=== PATIENT | female | born 1975 | race Caucasian/White ===

== ENCOUNTER → 2021-06-26 09:57 | Outpatient (CLI) | payer BC, SELFPAY ==
--- NOTE | ~2021-06-26 | XR_ITS ---
EXAMINATION: XR knee RT min 4V DATE: 06/26/2021 10:18 INDICATION: Osteoarthritis of knee. TECHNIQUE: 4 views of right knee including standing views were obtained. COMPARISON: None. FINDINGS: There is varus angulation at the knee. No fracture. Patella is bipartite. There is severe o steoarthritis of medial compartment and mild osteoarthritis of lateral and patellofemoral compartment s. There is a small knee joint effusion. IMPRESSION: 1. Severe right knee osteoarthritis. 2. Small right knee joint effusion. Reviewed, dictated and finalized at location A. TECHNICIAN
== END ==
DX: M17.11 Unilateral primary osteoarthritis, right knee (principal); M25.461 Effusion, right knee
CPT/HCPCS: 73564

== ENCOUNTER 2024-11-26 17:35 | Emergency (ER) | payer OTHER, SELFPAY ==
--- NOTE | ~2024-11-26 | US_ITS ---
EXAM: PELVIC ULTRASOUND HISTORY: RLQ abd pain, r/o ovarian torsion COMPARISON: None. FINDINGS: UTERUS: Surgically absent RIGHT OVARY: Despite prolonged interrogation, the right ovary was not visualized LEFT OVARY: Despite prolonged interrogation, the left ovary was not visualized No free fluid is identified within the pelvis. Limited evaluation of the pelvis demonstrates complex fluid within the bladder, with layering debris for which cystitis is suspected. IMPRESSION: As above. Reviewed, dictated and finalized at location A. IMPRESSION: As above.
--- NOTE | ~2024-11-26 | CT_ITS ---
CLINICAL INDICATION: Right lower quadrant pain COMPARISON: None. TECHNIQUE: Multiple contiguous axial images of the abdomen and pelvis were performed following the ad ministration of with 100 mL Omnipaque-350 intravenous contrast The dose-length product (DLP) was 1424.31 mGy-cm. Automated exposure control and iterative reconstruction technique were employed. FINDINGS/OBSERVATIONS: Visualized lower thorax: Trace medial right basilar atelectasis, adjacent to a vertebral body osteophyte. The remainder of the lungs are otherwise clear. The heart is borderline enlarged, without pericardial effusion. Small hiatal hernia is present. Liver: The liver demonstrates homogeneously decreased .enhancement and is enlarged measuring 21 cm in longit udinal dimension. Gallbladder and biliary system: The gallbladder is only minimally distended, and otherwise unremarkable. Pancreas: The pancreas enhances homogeneously without ductal dilatation. Spleen: The spleen enhances homogeneously and is not enlarged measuring 8 cm in longitudinal dimension. Kidneys: The bilateral kidneys enhance symmetrically without hydronephrosis or renal calculi. Adrenal glands: Unremarkable. Gastrointestinal tract: Colonic diverticulosis without surrounding inflammatory change. Appendix: The air-filled appendix is of normal caliber (axial series, images 123 through 136) Vasculature: Unremarkable. Lymph nodes: No pathologically enlarged or morphologically suspicious lymph nodes within the retroperitoneum or at the root of the mesentery. Pelvic structures: The bladder is only minimally distended, and demonstrates markedly thickened arredondo with surrounding i nflammatory change for which cystitis is suspected. The uterus is surgically absent. The bilateral ovaries are atrophic. Body wall and musculoskeletal: Fat-containing complex umbilical and supraumbilical hernia. Fat-containing bilateral inguinal hernias are also present. Age advanced degenerative disease within the lower thoracic and lumbosacral spines. IMPRESSION: No acute intra-abdominal pathology. Normal appendix. Fatty infiltration of an enlarged liver. Findings within the bladder suggesting cystitis. Reviewed, dictated and finalized at location A.
--- OUTSIDE RECORDS SUMMARY | 2024-11-26 17:37 | XMS_ITS | Clinical Summary ---
Author Organization [facility] Address [address] [place] [address] Care Team Providers Care Hydrographic Engineer Name Role Phone Ana Cristina Hopkins DO Primary Care Provider [phone] Source Comments [facility],non-owned Affiliates and Associated Physician Practices is amultiple site organization consisting of ambulatory clinics and hospital sitesin [place], [place], [place] and [place]. This disclosure is being madepursuant to the Care Everywhere program and may not contain all information available regarding this patient. Last updated 18.[facility] Allergies Active Allergy Reactions Criticality Noted Date Comments Gluten Meal GI Discomfort 07/15/2020 Latex Rash Medium 07/15/2020 Morphine Other 07/15/2020 Medications * Be aware that medications may not be up to date on this document. Alwaysverify current medications with the patient. albuterol (Accuneb) 0.63 MG/3ML nebulizer solution TAKE 6 MLS (1.26 MG TOTAL) BY WAY OF NEBULIZER 3 TIMES DAILY NEEDED FOR WHEEZING 2 Active ALPRAZolam (Xanax) 0.25 MG tablet Take 1 (one) tablet by mouth 2 times daily as needed 2 Active ARIPiprazole (Abilify) 5 MG tablet Take 1 (one) tablet by mouth at bedtime 2 Active atenolol (Tenormin) 25 MG tablet Take 1 (one) tablet by mouth 2 times daily 3 Active Atogepant (Qulipta) 10 MG TABS TAKE 1 TABLET BY MOUTH DAILY FOR THE PREVENTION OF MIGRAINE 2 Active cyclobenzaprine (Flexeril) 5 MG tablet TAKE 1 TO 2 TABLETS BY MOUTH NIGHTLY 3 Active diclofenac sodium EC (Voltaren) 75 MG tablet Take 1 (one) tablet by mouth 2 times daily 3 Active vitamin D, ergocalciferol, (Drisdol) 1.25 MG (54165 UT) capsule Take 1 (one) capsule by mouth Sundays and 3 Active ibuprofen (Motrin) 800 MG tablet TAKE 1 TABLET BY MOUTH 2 TIMES DAILY NEEDED FOR PAIN. 2 Active loratadine (Claritin) 10 MG tablet Take 1 (one) tablet by mouth once daily 3 Active montelukast (Singulair) 10 MG tablet Take 1 (one) tablet by mouth 2 Active sertraline (Zoloft) 100 MG tablet Take 1 (one) tablet by mouth once daily 3 Active traMADol (Ultram) 50 MG tablet TAKE 1-2 TAB WITH OTC TYLENOL BY MOUTH THREE TIMES DAILY FOR PAIN CONTROL 3 Active Colwell-3 Fatty Acids (fish oil) 1000 MG capsule Active Multiple Vitamin (MULTI-VITAMIN DAILY PO) Active VALERIAN ROOT PO Active guaiFENesin ER 12hr (Mucinex) 600 MG tablet Take 1 (one) tablet by mouth every 12 hours Active HYDROcodone-jackie taminophen (Garrison) 5-325 MG tabletIndicatio ns:Venosclerosi s Take 1 (one) tablet by mouth every 6 hours as needed for Pain 12 tablet 3 Active Active Problems Problem Noted Date Diagnosed Date Venosclerosis 07/19/2022 Family History Medical History Relation Name Comments Other Other unknown; adopte d Relation Name Status Comments Other Social History Tobacco Use Types Packs/Day Years Used Date Smoking Tobacco: Former Cigarettes Smokeless Tobacco: Never Tobacco Cessation:Counseling Given: Not Answered Alcohol Use Standard Drinks/Week Comments Not Currently 0 (1 standard drink = 0.6 oz pur e alcohol) Comments No Sex and Gender Information Value Date Recorded Sex Assigned at Not on file Legal Sex Female 12:11 PM CDT Gender Identity Not on file Sexual Orientation Not on file Last Filed Vital Signs Vital Sign Reading Time Taken Comments Blood Pressure 158/83 08/10/2022 1:40 PM CDT Pulse 81 08/10/2022 1:40 PM CDT Temperature 36.2 C (97.2 F) 08/10/2022 1:14 PM CDT Respiratory Rate 16 08/10/2022 1:40 PM CDT Oxygen Saturation 94% 08/10/2022 1:40 PM CDT Inhaled Oxygen Concentration - - Weight 124.7 kg (275 lb) 08/10/2022 10:22 AM CDT Height 160 cm (5' 3) 08/10/2022 10:22 AM CDT Body Mass Index 48.71 08/10/2022 10:22 AM CDT Plan of Treatment Health Maintenance Due Date Last Done Comments COLOGUARD (AGES 45-75) - COL ON CA SCREENING 1976 COLON MONITORING 1976 COLONOSCOPY - COLON CA SCREENING 1976 CT COLONOGRAPHY - COLON CA SCREENING 1976 Colorectal Cancer Screening 1976 FIT - COLON CA SCREENING 1976 FLEX SIG - COLON CA SCREENING 1976 LIPID TESTING 1976 MAMMOGRAM 1976 HIV SCREENING 1991 HEPATITIS C SCREENING 06/02/1994 DTAP/TDAP/TD VACCINES (1 - Tdap) 1995 HEPATITIS B VACCINE (1 of 3 - 19+ 3-dose series) 1995 PAP SMEAR 1997 SCREENING FOR DIABETES 07/19/2022 COVID-19 VACCINE (3 - 2023-2 5 season) 2024 08/08/2020, 07/26/2020 DEPRESSION SCREENING 05/27/2024 INFLUENZA VACCINE (Season Ended) 2025 02/20/2021 ZOSTER VACCINE (1 of 2) 2026 HIB VACCINE Aged Out No longer eligi ble based on patient's age to complete this topic HPV VACCINE Aged Out No longer eligi ble based on patient's age to complete this topic MENINGOCOCCAL (Group B) VACCINE SHARED DECISION-MAKING Aged Out No longer eligible based on patient's age to complete this topic MENINGOCOCCAL GROUPS A/C/Y/W VACCINE Aged Out No longer eligible b ased on patient's age to complete this topic PNEUMOCOCCAL VACCINE Aged Out No long er eligible based on patient's age to complete this topic Medical Devices Implanted Type Area Inspector Packer Device Identifier Shelf Expiration Date Model / Serial / Lot Port Implinfn Powerport Isp Mri Argd Implanted:Qty: 1 on 08/10/2022 by Scooby Hinton MD at [facility] Right: Chest [employer] 10/25/2023 [id number] / / [id number] Insurance [facility] Care Teams Hydrographic Engineer Relationship Specialty Start Date End Date Ana Cristina Hopkins DO [address] [place] [id number] PCP - General Family Medicine 08/07/22
--- OUTSIDE RECORDS SUMMARY | 2024-11-26 17:37 | XMS_ITS | Patient Health Record ---
Author Organization [facility] Address [address] [address] Care Team Providers Care Visual Artist Name Role Phone Prerna Sotelo Unavailable [phone] Migration, Provider Unavailable Unavailable Allergies Allergen (clinical drug ingredient) Drug/Non Drug Allergy documented on EMR Reaction Allergy Type Onset Date Status morphine Morphine Unknown Drug Allergy Active Latex Latex Unknown Allergy Active Results Component Value Reference Range Notes DEXAMETHASONE Reviewed date:05/25/2024 08:44:11 PM Interpretation: Performing Lab:[facility],, [address] [place], [address] Shauna Burkett MD,PhD,DEVANTE Notes/Report: AN UPDATE OR CORRECTION HAS BEEN MADE TO NAME DEXAMETHASONE 91 Reference Ranges for Dexamethasone: Baseline: Less than 20 ng/dL 1 mg dexamethasone overnight: 180-550 ng/dL (8:00-10:00 AM) This test was developed and its analytical performance characteristics have been determined by [employer]. It has not been cleared or approved by FDA. This assay has been validated pursuant to the CLIA regulations and is used for clinical purposes. CORTISOL, TOTAL Reviewed date:05/24/2024 11:53:46 AM Interpretation: Performing Lab:[facility], [address] [place], [address] Jim Shen MD Notes/Report: AN UPDATE OR CORRECTION HAS BEEN MADE TO NAME Reason For Referral No Information Medications Medication SIG (Take, Route, Frequency, Duration) Notes Start Date End Date Status Celecoxib 200 MG 1 cap(s) orally once a day Active sulfaSALAzine 500 MG 2 tab(s) orally 2 times a day 1500 MG X2 DAILY Active Vitamin D (Ergocalciferol) 1.25 MG (74416 UT) 1 cap(s) orally once a week 1.25 MG X2 DAILY Active Zoloft 100 MG 1 tab(s) orally once a day Active Tirzepatide 2.5 MG/0.5ML as directed Subcutaneous Active Loratadine 10 MG 1 tab(s) orally once a day Active Unithroid 50 MCG (0.05 MG) 1 TAB(S) ORALLY ONCE A DAY for 90 DAYS *Please review and pick correct strength-formulati on from [facility] options. If intended option is not shown, discontinue and re-order from Quick Search* 04/09/2024 Active dexAMETHasone 1 MG 1 tablet Orally at 10 pm night before 8 am cortisol for 1 days 06/29/2024 Active Ondansetron HCl 4 MG 1 tablet Orally twice daily as needed for 30 days 05/28/2024 Active dexAMETHasone 4 MG 1 tablet Orally at 10 pm night before 8 am coritisol for 1 days 06/29/2024 Active Progesterone ONCE DAILY *Plea review and pick correct strength-formulati on from [facility] options. If intended option is not shown, discontinue and re-order from Quick Search* 04/09/2024 Active Problems Problem Type SNOMED Code ICD Code Onset Dates Problem Status W/U Status Risk Notes Problem Vitamin D deficiency (82065080) Vitamin D deficiency, unspecified (E55.9) Active confirmed Problem Hypothyroidism (11113134) Hypothyroidism, unspecified (E03.9) Active confirmed Problem Obstructive sleep apnea syndrome (disorder) (49521188) Obstructive sleep apnea (adult) (pediatric) (G47.33) Active confirmed Problem Obesity (127855954) Obesity, unspecified (E66.9) Active confirmed Problem Polyarthritis (616907692) Polyarthritis, unspecified (M13.0) Active confirmed Problem Irregular menstruation (91956402) Irregular menstruation, unspecified (N92.6) Active confirmed Vital Signs Heart Rate 92 /min 06/29/2024 Blood pressure diastolic 76 mm Hg 06/29/2024 Height 63 in 06/29/2024 Blood pressure systolic 117 mm Hg 06/29/2024 Weight 269.0 lbs 06/29/2024 BMI 47.65 kg/m2 06/29/2024 Encounters Encounter Location Date Provider Diagnosis [facility] [address] [place] [address] 05/28/2024 Prerna Deepak Obesity, unspecified E66.9 ; Dietary counseling and surveillance Z71.3 ; Other fatigue R53.83 ; Encounter for screening for lipoid disorders Z13.220 and Polyarthritis, unspecified M13.0 [facility] [address] [place] [address] 06/29/2024 Prerna Sotelo Obesity, unspecified E66.9 ; Hypothyroidism, unspecified E03.9 ; Obstructive sleep apnea (adult) (pediatric) G47.33 and Dietary counseling and surveillance Z71.3 [facility] [address] [place] [address] 07/27/[address] [facility] [facility] [address] [place] [address] 04/11/2024 Provider Migration Hypothyroidism, unspecified E03.9 and Obesity, unspecified E66.9 [facility] [address] [place] [address] 04/09/2024 Prerna Sotelo Obesity, unspecified E66.9 ; Hypothyroidism, unspecified E03.9 ; Other fatigue R53.83 ; Vitamin D deficiency, unspecified E55.9 and Irregular menstruation, unspecified N92.6 Assessments Encounter Date Diagnosis (ICD Code) Assessment Notes Treatment Notes Treatment Clinical Notes Section Notes 05/28/2024 Obesity, unspecified (ICD-10 - E66.9) 05/28/2024 Dietary counseling and surveillance (ICD-10 - Z71.3) 06/29/2024 Hypothyroidism, unspecified (ICD-10 - E03.9) 06/29/2024 Obesity, unspecified (ICD-10 - E66.9) 04/11/2024 Hypothyroidism, unspecified (ICD-10 - E03.9) 04/11/2024 Obesity, unspecified (ICD-10 - E66.9) 04/09/2024 Hypothyroidism, unspecified (ICD-10 - E03.9) 04/09/2024 Obesity, unspecified (ICD-10 - E66.9) 05/28/2024 Other fatigue (ICD-10 - R53.83) 06/29/2024 Obstructive sleep apnea (adult) (pediatric) (ICD-10 - G47.33) 04/09/2024 Other fatigue (ICD-10 - R53.83) 05/28/2024 Encounter for screening for lipoid disorders (ICD-10 - Z13.220) 04/09/2024 Vitamin D deficiency, unspecified (ICD-10 - E55.9) 05/28/2024 Polyarthritis, unspecified (ICD-10 - M13.0) 06/29/2024 Dietary counseling and surveillance (ICD-10 - Z71.3) 04/09/2024 Irregular menstruation, unspecified (ICD-10 - N92.6) 04/09/2024 Other Assessment and Plan: 1. Type 2 Diabetes Mellitus- Patient is currently taking Tirzepatide from [facility].- A1C: 4.4- Plan: Caution patient about the risk of low sugars. Continue monitoring blood glucose levels and A1C. Reevaluate the need for Tirzepatide in 4 weeks. 2. Dyslipidemia- High triglycerides- Plan: Encourage patient to maintain a healthy diet and exercise regimen. Recheck lipid panel in 4 weeks. 3. Hypothyroidism- TSH: Elevated- Plan: Start patient on 50 mcg of levothyroxine, taken once a day in the morning with water. Instruct patient to wait an hour before having coffee, tea, milk, fish oil, or multivitamins. Recheck TSH in 4 weeks. 4. Hormone Replacement Therapy- Patient is using a hormone lotion for three days.- Plan: Discontinue hormone lotion for 4-6 weeks to obtain accurate cortisol and ACTH levels. Recheck hormone levels in 4 weeks. 5. Sleep disturbances and fatigue- Plan: Monitor the effect of levothyroxine on sleep and energy levels. Reevaluate in 6 weeks. 6. Cortisol evaluation- Plan: Postpone cortisol testing until the patient has discontinued hormone therapy for 4-6 weeks. Recheck cortisol and ACTH levels in 4 weeks. 7. Follow-up- Plan: Schedule a follow-up appointment in 6 weeks to discuss lab results and reevaluate treatment plans. Spent 25 minutes preparing to see the patient (ex review of tests/chart), obtaining and / or reviewing separately obtained history, performing a medically appropriate examination and/or evaluation, counseling and educating the patient/family/careg iver, ordering medications, tests, or procedures, referring and communicating with other health student career development specialist, documenting clinical information in the electronic or other health record, independently interpreting results and communicating results to the patient/family/careg iver and care coordinating patient plan. Patient alert and oriented x 4 and aware of discussion noted above and in agreeance to plan in management of 05/28/2024 Other Assessment and Plan: 1. Inadequate response to dexamethasone suppression test - Increase dexamethasone dose to 4 mg for repeat test - Include urine and salivary cortisol tests 2. Insomnia - Continue trazodone 5 mg as needed for sleep - Assess sleep quality after repeat dexamethasone suppression test 3. Weight loss - Encourage continuation of healthy lifestyle habits - Monitor weight changes during follow-up visits 4. Treated rheumatoid arthritis - Continue current rheumatoid arthritis management with specialist - Order WILLIAM test to screen for lupus 5. Gluten-free diet - Encourage continuation of gluten-free diet 6. Nausea and vomiting due to tirzepatide - Prescribe ondansetron 4 mg up to twice daily as needed for nausea - Provide 30 tablets with refills as needed - Advise patient to stay hydrated to prevent constipation 7. Laboratory tests - Order adrenal pituitary panel, glucose, lipids, full thyroid function, and 4 mg DEXA suppression test - Check cholesterol and insulin levels 8. Medication refills - Confirm patient has enough tirzepatide for a month - No additional refills needed at this time Follow-up: - Schedule follow-up appointment to review test results and assess treatment progress Spent 15 minutes preventative counseling patient on dietary recommendations and changes in setting of hyperglycemia- need to restrict refined sugars and processed foods and incorporate up to 150 minutes of moderate level activity weekly. Spent 25 minutes preparing to see the patient (ex review of tests/chart), obtaining and / or reviewing separately obtained history, performing a medically appropriate examination and/or evaluation, counseling and educating the patient/family/careg iver, ordering medications, tests, or procedures, referring and communicating with other health student career development specialist, documenting clinical information in the electronic or other health record, independently interpreting results and communicating results to the patient/family/careg iver and care coordinating patient plan. Patient alert and oriented x 4 and aware of discussion noted above and in agreeance to plan in management of obesity/weight management, fatigue and concern for hypercortisolism/ins ulin resistance. 06/29/2024 Other Assessment and Plan: ObesityPatient has experienced a weight loss of 6 pounds over the past month while on tirzepatide (Zepbound), indicating a positive response.Due to cost considerations, the patient is interested in switching to a compounded version of the medication.Continue tirzepatide therapy and switch to the compounded version at $290/month. Given 4 prefilled 2.5 mg tirzepatide syringes - lot number [id number] a signed consent form from the patient acknowledging potential side effects such as nausea and vomiting.Schedule a follow-up appointment in 4 weeks to monitor progress and adjust treatment as necessary. Suspected Tracy's SyndromePrevious testing indicated a cortisol level of 7 with an insufficient dexamethasone level.Plan to perform a 4mg dexamethasone suppression test to further evaluate for [place]'s syndrome. InsomniaThe patient reports difficulty maintaining sleep and experiences daytime fatigue.Considering the patient's weight gain and occasional snoring, sleep apnea is suspected as a contributing factor.Order a new sleep study to assess for sleep apnea and its impact on sleep quality and endocrine function.Note: The patient has been prescribed Xanax by a psychiatrist for sleep but has yet to commence treatment. HypothyroidismThe patient is currently being treated with Unithroid 50 mcg for thyroid management.Continue with the current thyroid medication regimen (Unithroid 50 mcg). Hormone TherapyThe patient has ceased testosterone therapy but continues to use progesterone, noting improvements in sleep and mood.Continue progesterone therapy as long as the current supply permits. Follow-up:Schedule a follow-up appointment in 4 weeks to review progress and adjust treatment plans as needed.Encourage the patient to report any new or worsening symptoms promptly. Spent 15 minutes preventative counseling patient on dietary recommendations and changes in setting of hyperglycemia- need to restrict refined sugars and processed foods and incorporate up to 150 minutes of moderate level activity weekly. Spent 25 minutes preparing to see the patient (ex review of tests/chart), obtaining and / or reviewing separately obtained history, performing a medically appropriate examination and/or evaluation, counseling and educating the patient/family/careg iver, ordering medications, tests, or procedures, referring and communicating with other health student career development specialist, documenting clinical information in the electronic or other health record, independently interpreting results and communicating results to the patient/family/careg iver and care coordinating patient plan. Patient alert and oriented x 4 and aware of discussion noted above and in agreeance to plan in management of hypothyroidism, obesity/ weight management and concern for ARIN and hypercortisolism. 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
--- OUTSIDE RECORDS SUMMARY | 2024-11-26 17:37 | XMS_ITS | Encounter Summary ---
Author Organization [facility] Address [address] [place] [id number] Care Team Providers Care Baby Attendant Name Role Phone Ana Cristina Hopkins DO Primary Care Provider [phone] Encounter Details Date Type Department Care Team (Late st Contact Info) Description 11/26/2024 mth sense Message Enc [facility] Family [facility] - [place] [address], [address] [place] [phone] Ana Cristina Hopkins DO [address] [place], [place] [id number] Bladder infection Social History Tobacco Use Types Packs/Day Years Used Date Smoking Tobacco: Former Cigarettes Q uit: 05/27/1996 Smokeless Tobacco: Never Comments:former smoker Alcohol Use Standard Drinks/Week Comments Not Currently 0 (1 standard drink = 0.6 oz pur e alcohol) rare AUDIT-C Answer Date Recorded Q1: How often do you have a drink containing alc ohol? 2-4 times a month 08/03/2020 Average Number of Drinks Not on file 021 Frequency of Binge Drinking Not on file 07/25 PHQ-2 Answer Date Recorded Patient Health Questionnaire-2 Score 0 09/25/2024 Comments No Sex and Gender Information Value Date Recorded Sex Assigned at Not on file Legal Sex Female 2:44 PM SOURCING ASSISTANT Gender Identity Not on file Sexual Orientation Not on file documented as of this encounter Plan of Treatment Not on file documented as of this encounter Visit Diagnoses Not on filedocumented in this encounter Additional Health Concerns Assessment Noted Time PHQ-9 Depression Total Score: 4 09/26/19 25 11:16 AM CDT documented as of this encounter Care Teams Baby Attendant Relationship Specialty Start [place] [address] [place] [id number] PCP - General FAMILY PRACTICE 07/15/20 documented as of this encounter
--- OUTSIDE RECORDS SUMMARY | 2024-11-26 17:37 | XMS_ITS | Continuity of Care Document ---
Author Organization [facility] Address [address] [place] [address] Phone Care Team Providers Care Audio Visual Collections Coordinator Name Role Phone Ray Covarrubias MD Unavailable Unavailable Allergies, Adverse Reactions, Alerts Substance Reaction Status Criticality morphine Unknown Active No Information Medications Medication Instructions Dosage Effective Dates (start - stop) Status Comments sertraline 100 mg tablet take 1 tablet by oral route every day 100 MG - Active trazodone 50 mg tablet TAKE 1 TABLET BY ORAL ROUTE EVERY DAY AFTER MEALS 50 MG - Active atenolol 25 mg tablet take 1 tablet by o ral route every day 25 MG - Active nortriptyline 50 mg capsule take 1 capsule by oral route every day 50 MG - Active Celebrex 200 mg capsule take 1 capsule b y oral route every day as needed 200 MG - Active Lyrica 75 mg capsule take 1 capsule by oral route 2 times every day 75 MG - Active Shelby 7.5 mg-325 mg tablet take 1 tablet by oral route every 6 hours as needed for pain - Active Zofran 4 mg tablet take 1 tablet by ora l route every 6 hours as needed for nausea - Active omeprazole 40 mg capsule,delayed release TAKE 1 CAPSULE BY MOUTH DAILY - Active montelukast 10 mg tablet take 1 tablet by oral route every day in the morning 10 MG - Active Procedures Procedure Date Knee Xray 3 Views (AP Lateral, Tunnel) J Knee Xray 3 Views (AP Lateral, Tunnel) J OV Est Pt, Expanded Visit OV Est Pt, Detailed Visit OV Est Pt, Detailed Visit Post Op Visit Adult 40-64 Yrs ADMIN IMMUN / ONE VACCINE FLU VAC NO PRSV 4 ODESSA 3 YRS+ ADMIN IMMUN / EA ADD VACCINE TdaP > 7 Yrs (Adacel) Pnuemoccocal Vaccine > 2 Yrs Arthroscopy, Knee W/ Menis (Med Or Lat) OV Est Pt, Expanded Visit EXT ECG REVIEW AND INTERP EXT ECG RECORDING OV New Pt, Comprehensive ECG Depo Medrol 80 Mg Major Joint Inject: Shoulder, Hip, Knee OV Est Pt, Detailed Visit OV Est Pt, Expanded Visit OV Est Pt, Expanded Visit Elec stim other than wound HOT OR COLD PACKS THERAPY MANUAL THERAPY AQUATIC THERAPY/EXERCISES Elec stim other than wound HOT OR COLD PACKS THERAPY MANUAL THERAPY AQUATIC THERAPY/EXERCISES Elec stim other than wound HOT OR COLD PACKS THERAPY MANUAL THERAPY AQUATIC THERAPY/EXERCISES PT EVAL LOW COMPLEX 20 MIN Elec stim other than wound HOT OR COLD PACKS THERAPY MANUAL THERAPY THERAPEUTIC EXERCISES OV Est Pt, Detailed Visit OV Est Pt, Detailed Visit Accounting Correction Knee Series Bilateral Standing AP (Knees Fully Extended) Views Depo Medrol 80 Mg Major Joint Inject: Shoulder, Hip, Knee OV Est Pt, Expanded Visit OV Est Pt, Expanded Visit Knee Xray Complete 4 Views (AP Lateral, Tunnel And Hodgkins) Depo Medrol 40 Mg Major Joint Inject: Shoulder, Hip, Knee OV New Pt, Comprehensive OV Est Pt, Expanded Visit Colonoscopy & Biopsy Upper GI Endoscopy, Biopsy OV Est Pt, Detailed Visit OV New Pt, Detailed Visit OV Est Pt, Detailed Visit MEDICAL NUTRITION, INDIV, 15 Min Each No OV Est Pt, Detailed Visit ADMIN IMMUN / ONE VACCINE FLU VAC NO PRSV 4 ODESSA 3 YRS+ OV New Pt, Comprehensive Advance Directives Directive Yes / No Effective Date File Name No Information Encounters Encounter Description Practice Location Reason(s) For Visit Diagnoses Date Provider Providers Copied on Encounter [facility], [address] [place], [address], [place] tel: [phone] [facility] No Information 0 Marci Bell. [address] [facility] , [address] [place] [address], [id number], [place]. tel:[phone] [facility], [address] [place] [address], [address], [place] tel: [phone] [facility] No Information 0 Marci Bell. [address] [facility] , [address] [place], [place], [id number], [place]. tel:[phone] OV Est Pt, Expanded Visit [facility], [address] [place], [address], [place] tel:[phone] [facility] ARIN POP bilateral knee pain (chief complaint) Pain in left kneePain in right kneeBilatera l primary osteoarthrit is of knee 0 [facility]oida [facility]. [address] [facility] , [place] [address], [place], [place], [id number], [place]. tel:[phone] Referring Provider: Ray Covarrubias, [address] [place], [address] . tel:[phone] [facility], [address], [place], [address], [place] tel:[phone] [facility] ARIN POP Left knee pain, unspecified chronicityCh ronic pain of right knee 0 Loida Frances. [address], [address], [place], [place], [id number], [place]. tel:[phone] [facility], [address], [place], [address], [place] tel:[phone] [facility] No Information Louie Kerry. [address], [address]th [facility], [place], [address], [place]. tel:[phone] [facility], [address], [place], [address], [place] tel: [phone] [facility] No Information 9 Marci Bell. [address], [address]th [facility], [place], [id number], [place]. tel:[phone] OV Est Pt, Detailed Visit [facility], [address] , [place], [address], [place] tel:[phone] [facility] Rheumatology F/U Fibromyalgia (chief complaint) Fibromyalgia Chronic pain syndromePrim brooke osteoarthrit is of right kneeChronic fatigue syndrome 9 Louie Kerry. [address], [address] [facility], [place], [address], [place]. tel:[phone] Referring Provider: Ray Covarrubias, [address] [facility], [place], [address] . tel:[phone] OV Est Pt, Detailed Visit [facility], [address], [place], [address], [place] [phone] [facility] POP Rheumatology F/U osteoarthriti s (chief complaint) Fibromyalgia Chronic pain syndrome 9 Louie Kerry. [address], [address] [facility], [place], [address], [place]. tel:[phone] Referring Provider: Ray Covarrubias, [address] [facility] [address] [facility], [place], [address] . tel:[phone] [facility], [address] [place] [address], [address], [place] tel: [phone] [facility] ARIN DNU post-op right (chief complaint) Other tear of medial meniscus, current injury, right knee, subsequent encounter 8 Loida Frances. [address], [place], [place], [id number], [place]. tel:[phone] Referring Provider: Ray Covarrubias, [address] [place] [address] [address] [facility], [place], [address] . tel:[phone] Adult 40-64 Yrs [facility], [address] [place] [address], [address], [place] tel: [phone] [facility] Preventive exam (chief complaint) Encntr for general adult medical exam w/o abnormal findingsFibr omyalgiaObes ity (BMI 30-39.9)PSVT (paroxysmal supraventric ular tachycardia) Status post total right knee replacement 8 Marci Bell. [address] [facility], [address]th [facility], [place], [place], [id number], [place]. tel:[phone] Referring Provider: Ray Covarrubias, [address] [place] [address] [address] [place], [address] . tel:[phone] [facility], [address] [place] [address], [address], [place] tel: [phone] [facility] Other tear of medial meniscus, current injury, right knee, subsequent encounterCho ndromalacia patellae of right knee 8 Loida Frances. [address], [address], [place], [place], [id number], [place]. tel:[phone] Referring Provider: Ray Covarrubias, [address] [facility] 4th [facility], [place], [address] . tel:[phone] [facility], [address] [facility], [place], [address], [place] tel:[phone] [facility] No Information 8 [place] Juan Daniel. [address] [facility], [address], [place], [id number], [place]. tel:[phone] OV Est Pt, Expanded Visit [facility], [address] [facility], [place], [address], [place] tel:[phone] [facility] cough/URI (chief complaint) Acute non-recurren t maxillary sinusitis 8 Rebecca garzon. [address] [place] [address], 3rd Floor, [place], [place], [id number], [place]. tel:[phone] Referring Provider: Ray Covarrubias, [address] [place] [address] 4th Floor, [place], [address] . tel:[phone] [facility], [address] [place] [address], [place], [address], [place] [phone] [facility] Card No Information 8 Nighat Munoz. [address] [facility], 4th Floor, [place], [address], [place]. tel:[phone] Referring Provider: Alexander Disla, [address] [place] [address] 4th Floor, [place], [address]. tel:[phone] [facility], [address] [place] [address], [place], [address], [place] tel:[phone] [facility] PT DNU knee (chief complaint) Unilateral primary osteoarthrit is, right kneeChronic pain of right kneeDifficul ty in walking, not elsewhere classifiedFi bromyalgiaOb esity (BMI 30-39.9) 8 Lopez Reid. [address] [facility] [address], [place], [place], [id number], [place]. tel:[phone] [facility], [address] [place] [address] Rd, [place], [address], [place] tel:[phone] [facility] Supraventric ular tachycardiaP aroxysmal tachycardia, unspecified Nighat Munoz. [address], 4th Floor, [place], [address], [place]. tel:[phone] Referring Provider: Alexander Disla, [address] [facility] 4th Floor, [place], [address]. tel:[phone] OV New Pt, Comprehensive [facility], [address] [facility], [place], [address], [place] tel:[phone] [facility] New patient consult (chief complaint)gen eral (chief complaint) Tachycardia, paroxysmalPa roxysmal SVT (supraventri cular tachycardia) Obesity (BMI 30-39.9)Unil ateral primary osteoarthrit is, right kneeFibromya lgia Nighat Munoz. [address] [facility], 4th Floor, [place], [address], [place]. tel:[phone] Referring Provider: Juan Daniel Mariscal, [address] [place] [address] [address], [place], [address] . tel:[phone] OV Est Pt, Detailed Visit [facility], [address] [place] [address], [place], [address], [place] tel:[phone] [facility] ARIN DNU right knee pain (chief complaint) Unilateral primary osteoarthrit is, right kneeSVT (supraventri cular tachycardia) 8 Loida Frances. [address] [facility], [address], [place], [place], [id number], [place]. tel:[phone] Referring Provider: Ray Covarrubias, [address] [facility] 4th Floor, [place], [address] . tel:[phone] OV Est Pt, Expanded Visit [facility], [address] [facility], [place], [address], [place] [phone] [facility] Rheumatology F/U osteoarthriti s (chief complaint) Unilateral primary osteoarthrit is, right kneeFibromya lgia 8 Antoni Kerry. [address] [place] [address], 4th [facility], [place], [address], [place]. tel:[phone] Referring Provider: Ray Covarrubias, [address] [place] [address] 4th Floor, [place], [address] . tel:[phone] [facility], [address] [place] [address], [place], [facility], tel:[phone] [facility] Pharmacy Services No Information 8 Marci Bell. [address] [place] [address], [address] [facility], [place], [place], [id number], [place]. tel:[phone] OV Est Pt, Expanded Visit [facility], [address] [place] [address], [facility], tel:[phone] [facility] cough (chief complaint)fib romyalgia (chief complaint) CoughSore throat 8 Marci Bell. [address] [place] [address], [address] [facility], [place], [id number], [place]. tel:[phone] Referring Provider: Ray Covarrubias, [address] [place] [address] 4[address] [facility], [place], [address] . tel:[phone] [facility], [address] [place] [address], [facility], tel:[phone] [facility] PT DNU knee (chief complaint) Chronic pain of right kneeDifficul ty in walking, not elsewhere classifiedUn ilateral primary osteoarthrit is, right kneeFibromya lgia 8 Shantal Martinez. [address] [facility] [address], [place], [facility], [place]. tel:[phone] Referring Provider: Juan Daniel Mariscal, [address] [place] [address] [address], [place], [address] . tel:[phone] [facility], [address] [place] [address], [address], [place] tel:[phone] [facility] PT DNU knee (chief complaint) Chronic pain of right kneeDifficul ty in walking, not elsewhere classifiedUn ilateral primary osteoarthrit is, right kneeFibromya lgia 7 8 Lopez Hurtadoen. [address] [facility] [address], [address], [place], [place], [id number], [place]. tel:[phone] Referring Provider: Juan Daniel Mariscal, [address] [place] [address] [address], [place], [address] . tel:[phone] [facility], [address] [place] [address], [place], [address], [place] tel:[phone] [facility] PT DNU knee (chief complaint) Chronic pain of right kneeUnilater al primary osteoarthrit is, right kneeDifficul ty in walking, not elsewhere classifiedOt her chronic pain 8 Murguia Juan. [address] [place] [address] [address], [place], [address], [place]. tel:[phone] Referring Provider: Juan Daniel Mariscal, [address] [place] [address] [address], [place], [address] . tel:[phone] [facility], [address] [place] [address], [place], [address], [place] tel:[phone] [facility] PT DNU knee (chief complaint)gen eral orthopedic (chief complaint) Primary osteoarthrit is of right kneeChronic pain of right kneeOther chronic painDifficul ty in walking, not elsewhere classifiedFi bromyalgia 8 Lopez Reid. [address] [facility] [address], [address], [place], [place], [id number], [place]. tel:[phone] Referring Provider: Juan Daniel Mariscal, [address] [place] [address] [address], [place], [address] . tel:[phone] OV Est Pt, Detailed Visit [facility], [address] [place] [address] , [place], [address], [place] tel:[phone] [facility] POP Rheumatology F/U Osteoarthriti s (chief complaint) Fibromyalgia Primary osteoarthrit is of right knee 8 Antoni Payne. [address], 4th Floor, [place], [address], [place]. tel:[phone] Referring Provider: Ray Covarrubias, [address] [facility], [place], [address] . tel:[phone] OV Est Pt, Detailed Visit [facility], [address] [facility], [place], [address], [place] tel:[phone] [facility] IM knees hurt (chief complaint) Fibromyalgia Irritable bowel syndrome with diarrheaObes ity, unspecified classificati on, unspecified obesity type, unspecified whether serious comorbidity present 8 Marci Bell. [address] [facility], [address] [facility], [place], [place], [id number], [place]. tel:[phone] Referring Provider: Ray Covarrubias, [address] [facility] 4th [facility], [place], [address] . tel:[phone] [facility], [address] [facility], [place], [address], [place] tel:[phone] [facility] No Information 8 Marci Bell. [address] [facility], [address] [facility], [place], [place], [address], [place]. tel:[phone] Referring Provider: Tad Lackey, [address] [employer] [address], [place], [address]. tel:[phone] OV Est Pt, Expanded Visit [facility], [address] [facility], [place], [address], [place] [phone] [facility] ARIN DNU right knee pain (chief complaint) Primary osteoarthrit is of right knee 8 Loida Frances. [address] [facility], [address], [place], [place], [address], [place]. tel:[phone] Referring Provider: Kerry Louie, [address] 4th Floor, [place], [address]. tel:[phone] [facility], [address] [facility], [place], [address], [place] tel: [phone] [facility] Rheumatology Primary osteoarthrit is of right knee 8 Antoni Payne. [address], [address] [facility], [place], [address], [place]. tel:[phone] OV Est Pt, Expanded Visit [facility], [address] [facility], [place], [address], [place] tel: [phone] [facility] Rheumatology F/U Pain In R Leg (chief complaint) Primary osteoarthrit is of right kneeSwelling of right knee joint 8 Antoni Payne. [address] [place], [address], [place]. tel:[phone] Referring Provider: Ray Covarrubias, [facility] [address] [facility], [place], [address] . tel:[phone] OV New Pt, Comprehensive [facility], [address] [place] [address], [place], [address], [place] tel: [phone] [facility] Rheumatology Consult Pain of Right Lower Extremity (chief complaint) Pain in right legSwelling of right knee jointPrimary osteoarthrit is of right knee 8 Antoni Payne. [address] , [address] [place] [address], [place], [address], [place]. tel:[phone] Referring Provider: Ray Covarrubias, [address] Floor, [place], [address] . tel:[phone] OV Est Pt, Expanded Visit [facility], [address] [place] [address], [address], [place] tel: [phone] [facility] right leg pain (chief complaint) Pain of right lower extremityObe sity, unspecified classificati on, unspecified obesity type, unspecified whether serious comorbidity present 8 Marci Bell. [address], 4th Floor, [place], [place], [id number], [place]. tel:[phone] Referring Provider: Ray Covarrubias, [address] Floor, [place], [address] . tel:[phone] [facility], [address], [place], [address], [place] tel: [phone] [facility] No Information Bailee Hernandez. [address], 4th Floor, [place], [address], [place]. tel:[phone] Referring Provider: David Morocho, [address] [facility], [place], [address]. tel:[phone] OV Est Pt, Detailed Visit [facility], [address] , [place], [address], [place] tel: [phone] [facility] leg pain (chief complaint)ruba ght loss (chief complaint)fms . (chief complaint)rls (chief complaint) Fibromyalgia RLS (restless legs syndrome)Obe sity, unspecified classificati on, unspecified obesity type, unspecified whether serious comorbidity presentIrrit able bowel syndrome with diarrhea 8 Marci Bell. [address], 4th Floor, [place], [place], [address], [place]. tel:[phone] Referring Provider: Ray Covarrubias, [address] [facility], [place], [address] . tel:[phone] OV New Pt, Detailed Visit [facility], [address], [place], [address], [place] tel:[phone] [facility] IBS (chief complaint) Irritable bowel syndrome with diarrhea Bailee Sharontroy. [address], 4th Floor, [place], [address], [place]. tel:[phone] Referring Provider: Ray Covarrubias, [address]th Floor, [place], [address] . tel:[phone] OV Est Pt, Detailed Visit [facility], [address] [place] [address], [place], [address], tel: [phone] [facility] Follow Up of weight (chief complaint)abd ominal discomfort (chief complaint)Magalie rrhea daily since child/IBS (chief complaint)L br pain (chief complaint)pel deny jaylan/pressure (chief complaint)FMS /RLS (chief complaint) Irritable bowel syndrome with diarrheaObes ity, unspecified classificati on, unspecified obesity type, unspecified whether serious comorbidity presentFibro myalgiaRLS (restless legs syndrome)Dys pepsiaBreast pain, leftBreast cancer screeningBod y mass index (BMI) 45.0-49.9, adult Marci Bell. [address] [place] [address], [address], [id number], . tel:[phone] Referring Provider: Ray Covarrubias, [address] [place] [address] [address] [place], [address] . tel:[phone] [facility], [address] [place] [address], [place], [address], tel: [phone] [facility] Nutrition Services [place] Obesity, unspecified classificati on, unspecified obesity type, unspecified whether serious comorbidity presentIrrit able bowel syndrome with diarrheaVita min D deficiency Crystal Kinsey. [address] [place] [address], [address] [place], [place], [id number], . tel:[phone] Referring Provider: Ray Covarrubias, [address] [place] [address] 4th [address], [place], [address] . tel:[phone] OV Est Pt, Detailed Visit [facility], [address] [place] [address], [address], tel: [phone] [facility] follow up (chief complaint)str ess (chief complaint) Obesity, unspecified classificati on, unspecified obesity type, unspecified whether serious comorbidity presentStres sVitamin D deficiency Marci Bell. [address], [address] Floor, [place], [address], [place]. tel:[phone] Referring Provider: Ray Covarrubias, [address] [facility] [address] [facility], [place], [address] . tel:[phone] OV New Pt, Comprehensive [facility], [address] [facility], [place], [address], tel:[phone] [facility] est care (chief complaint)kaleb sea (chief complaint)FMS (chief complaint)RLS (chief complaint)ruba ght gain (chief complaint)cou gh/bronchitis /phlegm clear (chief complaint) Irritable bowel syndrome with diarrheaFibr omyalgiaNaus eaObesity, unspecified classificati on, unspecified obesity type, unspecified whether serious comorbidity presentBronc hitis 7 Marci Bell. [address] [facility], [address] [place], [place], [address], . tel:[phone] Referring Provider: Ray Covarrubias, [address] [place] [address] [address] [facility], [place], [address] . tel:[phone] Family History Family Member Type Diagnosis Age At Onset No Information Immunizations Vaccine Date Status Comments Influenza, injectable, quadrivalent, preservative free, 3 yrs or older administered Source: New Immuniz ation Record Tdap administered Source: New Imm unization Record Pneumo (2 yrs or older)(PPV) administered Source: New Immunization Record Influenza, injectable, quadrivalent, preservative free, 3 yrs or older administered Note: Verified by M D ; Source: New Immunization Record Payers Payer name Insurance type Covered libertarian ID Authoriza tion(s) [facility] CI [id number] [facility] CI [id number] [facility] CI [id number] Social History Type Description Quantity Date Captured Comments Alcohol Use Details Unknown Caffeine Use Details Unknown Tobacco Use Status No Information Smoking Status No Information Sex Female Chief Complaint And Reason For Visit No Information Reason For Referral Reason For Referral No Information Plan Of Treatment Date Type Action Status Referral Ordered: Juan Daniel Mariscal MD -Orthopedic Surgery (related to Bilateral primary osteoarthritis of knee) ordered Referral Ordered: Knee Xray 3 Views (AP Lateral, Tunnel) RT knee ordered Referral Ordered: Knee Xray 3 Views (AP Lateral, Tunnel) LT knee ordered Referral Ordered: Julian Gatica MD -Endo Diabetes And Metabolism (related to Fibromyalgia) ordered Referral Referred To: Julian Gatica MD [address] [facility]
[address] [place], [phone] Ordered: Referrals: Endo Diabetes And Metabolism. Julian Gatica MD. Consult ordered Referral Ordered: Ariel Marie MD -Pain Medicine (related to Chronic pain syndrome) ordered Referral Ordered: Physical Therapist/Independent (related to Other tear of medial meniscus, current injury, right knee, subsequent encounter) ordered Referral Ordered: Cardiology (related to Unilateral primary osteoarthritis, right knee) ordered Referral Ordered: Juan Daniel Mariscal MD -Orthopedic Surgery (related to Unilateral primary osteoarthritis, right knee) ordered Referral Ordered: Ariel Marie MD -Pain Medicine (related to Fibromyalgia) ordered Referral Referred To: Ariel Marie MD [address] [facility] [address] [place], [phone] Ordered: Referrals: Pain Medicine. Ariel Marie MD. Consult ordered Referral Ordered: Physical Therapist/Independent (related to Primary osteoarthritis of right knee) ordered Referral Ordered: Referrals: Physical Therapist/Independent. Evaluate and treat ordered Referral Ordered: Knee Series Bilateral Standing AP (Knees Fully Extended) Views knee ordered Referral Ordered: Juan Daniel Mariscal MD -Orthopedic Surgery (related to Primary osteoarthritis of right knee) ordered Referral Referred To: [place] [id number] [facility] [address] [place], [place], [phone] Ordered: Referrals: Orthopedic Surgery. Juan Daniel Mariscal MD. Consult ordered Referral Ordered: Knee Xray Complete 4 Views (AP Lateral, Tunnel And Hodgkins) Right ordered Referral Ordered: MRI Lower Extremity, Joint W/o Contrast (Please Specify Site) Right knee ordered Referral Ordered: Kerry Louie MD -Rheumatology (related to Pain of right lower extremity) ordered Referral [place] To: [place] [address] [place], [phone] Ordered: Referrals: Rheumatology. Kerry Louie MD. Evaluate and treat ordered Referral Ordered: Upper GI Endoscopy, Biopsy ordered Referral Ordered: Colonoscopy ordered Referral Ordered: David Morocho MD -Gastroenterology (related to Irritable bowel syndrome with diarrhea) ordered Referral [place] To: [place] [id number] [facility]
[address] [place], [phone] Ordered: Referrals: Gastroenterology. David Morocho MD. Consult ordered Referral Ordered: SCR MAMMO BI INCL CAD ordered Referral Ordered: Kinsey NGO CNS -Custom Framing Specialist (related to Obesity, unspecified classification, unspecified obesity type, unspecified whether serious comorbidity present) ordered Referral Ordered: Kinsey [employer] CNS -Custom Framing Specialist (related to Obesity, unspecified classification, unspecified obesity type, unspecified whether serious comorbidity present) ordered Referral Referred To: Kinsey NGO CNS [address] [place], [phone] Ordered: Referrals: Custom Framing Specialist. Kinsey Lockhart MBA, RD Nataly CNS. Evaluate and treat ordered History Of Present Illness Encounter Date Complaint History Of Prese nt Illness bilateral knee pain Onset: sudde n. Duration: more than 1 hour. Severity level is moderate. It occurs constantly and is worsening. Location: bilateral knee. There is no radiation. The pain is aching, piercing, sharp and throbbing. Context: there is no injury. The pain is aggravated by climbing (and descending) stairs, movement and walking. There are no relieving factors. Associated symptoms include decreased mobility, difficulty initiating sleep, joint instability, locking, nocturnal pain, popping, swelling and weakness. Pertinent negatives include bruising, crepitus, joint tenderness, limping, nocturnal awakening, numbness, spasms, tingling in the arms and tingling in the legs. Hand Dominance: right. 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 RIGHT KNEE IS WORSE AND WAS SCOPED WITHIN LAST 2 YEARS AND INJ JUST BEFORE THANKSGIVING W/O SUCCESS. R PAIN 03/05, L PAIN 09/03. PT DENIES HX, SX, INJ ON LEFT. HAS HX OF FIBROMYALGA. 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 Preventive exam cough/URI Onset: 4 days ag o. The patient describes the cough as non-productive. The problem has become gradually worse. Associated symptoms include chills, cough, fatigue, nasal congestion, post-nasal drainage, sinus pressure and SCOTT. Nose bleed toay. Pertinent negatives include dyspnea, dyspnea on exertion, fever and night sweats. The patient has a history of allergies. The patient does not have a history of asthma. Additional information: Hx. of sinus infections. knee Location: knee. Hand Dominance: right. general She has had no c hest discomfort suggestive of ischemia. The patient denies orthopnea, PND, ORTIZ, or edema. Ms. Valdivia has not had palpitations, syncope or near syncope. She denies claudication. There is no discoloration or ulceration of the lower extremities. She has had no TIA or stroke-like symptoms. The patient has no symptoms attributable to valvular heart disease. 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 right knee pain Severity level i s moderate. It occurs constantly and is worsening. Location: right knee. The pain is aggravated by bending, climbing (and descending) stairs, lifting, pushing, sitting, walking and standing. The pain is relieved by ice and OTC medicines (). Associated symptoms include crepitus, decreased mobility, difficulty initiating sleep, joint tenderness, limping, locking, nocturnal awakening, spasms, swelling and weakness. Hand Dominance: right. Additional information: REFERRED BACK BY MD LOUIE FOR R KNEE OA, L/S 11/01/17 FOR R KNEE PAIN, CORTISONE INJ GIVEN & PT ORDERED, HERE TODAY W/CONT KNEE PAIN WOULD LIKE TO DISCUSS SURGERY, R KNEE PAIN IS WORSE DESPITE PT & NSAIDS ARE NOT EFFECTIVE, INJ HELPED X 1 WK,, HAS LOST 60LBS, LAST R KNEE MRI 10/11/17. F/U osteoarthritis She reports h er knee pain is worse, despite PT therapyShe has seen Dr. Mariscal in the past and would like to ocnsider surgical options ans several NSAIDS- are not effectvepain- moderate to severe , she is unable to stand for long time fibromyalgia cough Onset: 1 day ago . The patient describes the cough as dry and non-productive. Associated symptoms include chills. Pertinent negatives include fever. Additional information: h/o asthma. knee It occurs occasi onally and is improving. Location: right knee. The pain is aching, dull and sharp. Associated symptoms include decreased mobility, joint tenderness and weakness. Hand Dominance: right. knee Location: knee. Hand Dominance: right. knee Location: right knee. The pain is aggravated by bending, climbing (and descending) stairs and walking. Associated symptoms include decreased mobility, joint tenderness, limping, popping and weakness. Hand Dominance: right. general orthopedic Onset of knee pain several years ago. Had treatment in [place] - [facility] 2 x /wk for 3 years. Helped with back and knees. Moved to [place] in May 2017. Moved into an aarent on 3rd floor. goes up/down 1 at a time. Lost 50 lbs since moving here. Gradually increased R knee pain. States she can't squat, can't sit on legs. Uses a SPC due to R knee pain. Pt has done pool therapy for Fibromyalgia. Just bought a new house - ranch style with a pool so will resume pool exercises. Pain limits sleeping also. Also has restless leg syndrome. It is intermittent though. Has started using canibus which helps a little and helps mildly with sleeping. On 100 mg Gabapenten for the Fibromyalgia x 6 years. Was bumped up to 1000 mg 2 weeks ago. Has a brace she wears when knee is at it's worst. knee It occurs consta ntly. Location: knee. The pain is aching, dull and sharp. Hand Dominance: right. Additional information: Pt has whole body pain due to Fibromyalgia. Pt states Sun. knee was so painful could not walk. 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 F/U Osteoarthritis continues to have whole body pain and right knee pain and swelling, reivewed MRI knees hurt fibromyalgia is kicking my butt dx 5 yrs ago. pain on and off. could not tolerate tramadol. right knee pain Onset: year ago. Severity level is moderate. It occurs constantly and is worsening. Location: right knee. The pain is aggravated by bending, climbing (and descending) stairs, lifting, pushing, sitting, walking and standing. The pain is relieved by ice and OTC medicines (). Associated symptoms include crepitus, decreased mobility, difficulty initiating sleep, joint tenderness, limping, locking, nocturnal awakening, spasms, swelling and weakness. Pertinent negatives include bruising. Hand Dominance: right. Additional information: NEW PT RT KNEE PAIN; SHE MOVING FROM [place], AND HAD ORTHO CARE; JAC INJECTIONS, BUT WORSENED; SHE STATES SHE HAS FIBROMYALGIA; STANDING XRAY TODAY ([facility]); MRI@[facility]. F/U Pain In R Leg DID not comple te labs , MRI approved PEndingK rays- mild OA and effusion- better after injectionon diclofenac 50 mg tid Consult Pain of Righ t Lower Extremity Patient presents for rheumatology evaluation on 09.24.17 for bilateral leg pain . Onset of symptoms X November 2016. Patient reports of bilateral leg pain, right worse, originates in her knees. She reports excruciating pain at the back of the right leg or insides of the knee. No hip or back pain. X rays at [place], consulted Orthopedic and Dx with osteoarthritis. Swelling worse at night, when she has been up on her feet all day. She also reports of right knee giving out, she walks up and down 3 flights of stairs with difficulty. No Right knee injury. 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 Location: right. Additional information: both legs pain/aches/throbs R>L. walking worsens, espec up stairs. no trauma. vacular w/u negative. no back pain. 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 saw ortho in [place]. Xray showed arthritis in knee but mild had knee injected with cortis w/o relief. Very active person. rls fms. weight loss leg pain Additional infor mation: driving to [place]. legs and arms ache/spasms. pain at rest/better with walking. chronic all my life exten w/u neg incl vasc w/u. DX FMS. whole body hurts. IBS abdominal discomfort It occurs d aily. Additional information: comes on after eating. sometimes in mid of night. has seen GI in past. Diarrhea daily since child/IBS t akes Ensure daily L br pain FMS/RLS mila helps. pelvic jaylan/pressure on and off. Follow Up of weight stress 2 young acquaint killed in DUI yesterday/tearful. follow up weight gain Additional infor mation: doesnt eat much works out. cough/bronchitis/phlegm clear est care bronchitis 3 wee ks ago. RX z-lobo. resolved. Then returned/URI/SCOTT/temp. drainage in throat. had a steroid shot. RLS FMS nausea Additional infor mation: nausea on and off. IBS. no food assoc. GI MD flores and no dx other than stopping gluten multiple tests nl.. Functional Status Date Functional Assessmen t No Information Instructions Date Instruction Additional Infor mation Bilateral advanced v arus aligned knees with [id number] arthritic changes right worse than left. Her BMI is well over 40. We have instructed her on weight loss, activity modification, and offered cortisone injections which she is currently refused. She would like to proceed with hyaluronic acid injections. She is 44 years old and needs bilateral knee replacements once her weight is down Related to Pain in left knee endo eval for chronic fqatigue R elated to Chronic fatigue syndrome trazodone 50 mg QHSc all back OrthoPhysical therapy- bilateral kneediscontinue gabapentinchange to lyrica 75 mg twice dailynortriptyline 50 mg at nightrtc in 2 months Related to Fibromyalgia Add amitriptyline 25 mg QHsbaclofen 10 mg dailypain management - referralrtc in 1 month Related to Fibromyalgia Patient is status po st knee arthroscopy doing well.Sutures are removed, Steri-Strips are placed, negative Homans. Calf is soft nontender. Mild swelling. Satisfactory range of motion active and passiveDemonstrated discussed detailed home exercise program. Discussed the role of physical therapy which he will consider. Follow-up as scheduled. Related to Other tear of medial meniscus, current injury, right knee, subsequent encounter follow up with Dr Mariscal as plan krzysztof. Related to Status post total right knee replacement TDAP,flu, Pneumovax due recheck weight and BP Related to Encntr for general adult medical exam w/o abnormal findings * Nasal Saline spray (2% buffered saline) or NETI POT - always usd prepared solution* FLONASE 2 sprays per nostril daily or 1 spray per nostril two times per day.* FLUIDS!! Lots and lots of fluids to thin out secretions* NO decongestants as it will increase your heart rate* IUPROFEN/MOTRIN 600mg 3 times a day for the next 3 days then only as needed. * If you develop a fever see you primary care provider or come back. * The pressure in your face shoud be getting better over time. Related to Acute non-recurrent maxillary sinusitis Pleasant 42-year-old female with multiple medical problems including cardiovascular disease and a BMI of greater than 42. We have provided a cortisone shot today to her knee which she is tolerated well. She would like to proceed with arthroscopy understanding high risk of ongoing discomfort because the underlying arthritis. At this point she is too heavy for total knee arthroplasty and she understands this. Related to Unilateral primary osteoarthritis, right knee Pain management referal Related to Fibromyalgia Ortho referral- Dr. Mariscal- for surgical procedure Related to Unilateral primary osteoarthritis, right knee call if symptoms persist. Relate d to Sore throat diclofenac 75 mg bidvoltaren gel 1 % Related to Primary osteoarthritis of right knee increase gabapentin 300 mg twice daily, then in 1 week increase to 1 tabs tid, then increase to 1 tab twice daily and 2 tabs at night.diclofenac 75 mg bidvoltaren gel 1 %pain management referralrtc in 3 months Related to Fibromyalgia has Rheum appt next month. recheck in 6 weeks. Related to Fibromyalgia X-rays show left wor se than right knee arthritis although the right knee is more painful. MRI is reviewed and shows intrasubstance changes. Her BMI is 45. We will start with a cortisone injection today and some physical therapy. She will work on weight loss on her own. She is agreeable with this plan. Continues to have discomfort despite conservative management. We discussed treatment options from surgical to conservative. I demonstrate discussed a detailed home exercise program. We discussed risk options and benefits of cortisone injection which we performed today without incident. The injection was tolerated well. Will follow up to this office immediately for any increasing pain or problems. Related to Primary osteoarthritis of right knee Please complete labs and MRIand call us for the results- next recommendation is based on your MRI resultsrtc in 3 months or as needed Related to Primary osteoarthritis of right knee Right knee aspiratio nX rays of Right kneeMRI of Right knee non contrastcomplete labs-rtc in 3-4 weeksdiscontinue meloxicamchange to naprosyn 500 mg bid Related to Pain in right leg recheck 2 months. Related to Obe sity, unspecified classification, unspecified obesity type, unspecified whether serious comorbidity present recheck 2 months. Related to RLS (restless legs syndrome) recheck 5-6 weeks. Related to Ir ritable bowel syndrome with diarrhea recheck 3 months. Related to Obe sity, unspecified classification, unspecified obesity type, unspecified whether serious comorbidity present flu shot Related to Bronc hitis check fasting labs/r eview old med records/recheck 4-6 weeks. Related to Nausea Assessments Type Assessment Date No Information Patient Care Teams Name Effective Dates (start - stop) Status Members No Information
--- OUTSIDE RECORDS SUMMARY | 2024-11-26 17:37 | XMS_ITS | Encounter Summary ---
Author Organization [facility] Address [address] [place] [id number] Care Team Providers Care Crew Supervisor Name Role Phone Ana Cristina Hopkins Primary Care Provider [phone] Encounter Details Date Type Department Care Team (Late st Contact Info) Description 09/07/2021 Huodongxing Message [facility] Patient Accounts [address] [place], [place] [id number] [facility] Auto Pay Fail Social History Tobacco Use Types Packs/Day Years Used Date Smoking Tobacco: Former Cigarettes Q uit: 1996 Smokeless Tobacco: Never Alcohol Use Standard Drinks/Week Comments Yes 0 (1 standard drink = 0.6 oz pur e alcohol) AUDIT-C Answer Date Recorded Q1: How often do you have a drink containing alc ohol? 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 No / Unsure 09/04/2021 9:20 AM CDT documented as of this encounter Plan of Treatment Not on file documented as of this encounter Visit Diagnoses Not on filedocumented in this encounter Additional Health Concerns Assessment Noted Time PHQ-9 Depression Total Score: 0 08/25/19 22 3:30 PM CDT documented as of this encounter Care Teams Crew Supervisor Relationship Specialty Start Date End Date Ana Cristina Hopkins DO [address] [place] [address] PCP - General FAMILY PRACTICE 07/15/20 documented as of this encounter
--- OUTSIDE RECORDS SUMMARY | 2024-11-26 17:37 | XMS_ITS | Encounter Summary ---
Author Organization 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
--- OUTSIDE RECORDS SUMMARY | 2024-11-26 17:38 | XMS_ITS | Encounter Summary ---
Author Organization [facility] Address [address] [place] [address] Care Team Providers Care Civil Structural Engineer Name Role Phone Ana Cristina Hopkins DO Primary Care Provider [phone] Encounter Details Date Type Department Care Team (Late st Contact Info) Description 09/22/2020 Petnett Message Enc [facility] Family Medicine - [place] [address] [facility], [address] [place] [phone] Ana Cristina Hopkins DO [address] [place], [place] [phone] Medication Questions Social History Tobacco Use Types Packs/Day Years [...] please move on to questions 3-9 0 09/19/2020 Comments No Sex and Gender Information Value Date Recorded Sex Assigned at Not on file Legal Sex Female 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 No / Unsure 09/22/2020 2:36 PM CDT documented as of this encounter Plan of Treatment Not on file documented as of this encounter Visit Diagnoses Not on filedocumented in this encounter Additional Health Concerns Assessment Noted Time PHQ-9 Depression Total Score: 10 021 11:41 AM CDT documented as of this encounter Care Teams Civil Structural Engineer Relationship Specialty Start Date End Date Ana Cristina Hopkins DO [address] [place] [id number] PCP - General FAMILY PRACTICE 07/15/20 documented as of this encounter
--- OUTSIDE RECORDS SUMMARY | 2024-11-26 17:38 | XMS_ITS | Encounter Summary ---
Author Organization [facility] Address [address] [place] [address] Care Team Providers Care Toe Lining Closer Name Role Phone Ana Cristina Vale DO Primary Care Provider Reason for Visit * Reason Onset Date Comments Information 07/28/2020 Encounter Details Date Type Department Care Team (Late st Contact Info) Description 07/28/2020 [employer] Message Enc [facility] Medical Group Family Medicine [facility] [address] [place] [address], [address] [place] [phone] Ana Cristina Vale DO [address] [place], [place] [phone] RE: Medication Questions Social History Tobacco Use Types Packs/Day Years Used Date Smoking Tobacco: Never Smokeless Tobacco: Never Alcohol Use Standard Drinks/Week Comments Yes 0 (1 standard drink = 0.6 oz pur e alcohol) PHQ-2 Answer Date Recorded PHQ-2 Score 0 07/15/2020 Comments Unknown Sex and Gender Information Value Date Recorded Sex Assigned at Not on file Legal Sex Female 2:44 PM MORTGAGE UNDERWRITER Gender Identity Not on file Sexual Orientation Not on file COVID-19 Exposure Response Date Recorded In the last month, have you been in contact with someone who was confirmed or suspected to have Coronavirus / COVID-19? No / Unsure 07/15/2020 2:07 PM MORTGAGE UNDERWRITER documented as of this encounter Progress Notes * Mita Freedman - 08/01/2020 7:40 AM CST Patient called back to schedule f/u. Last office visit at this office: Last visit with ANA CRISTINA VALE in FAMILY PRACTICE was on: 07/15/2020 in [place] Future appointment scheduled: Future Appointments Date Time Provider Department Center 08/01/2020 8:45 AM [facility] 08/02/2020 1:40 PM Ana Cristina Vale DO [id number] MG GRN MNT R 08/03/2020 9:30 AM Lupe Blackwell, PT SEOEVPTO [facility] 08/03/2020 9:30 AM Jerry Sifuentes MD EDWPCCL EDWDSVL PCCL 08/04/2020 10:00 AM Valdo Melgoza MD MGORTHOF RAHEL GALARZA GAGE UNDERWRITER documented in this encounter Plan of Treatment Not on file documented as of this encounter Visit Diagnoses Not on filedocumented in this encounter Care Teams Toe Lining Closer Relationship Specialty Start Date End Date Ana Cristina Vale DO [address] [place] [address] PCP - General FAMILY PRACTICE 07/15/20 documented as of this encounter
--- OUTSIDE RECORDS SUMMARY | 2024-11-26 17:38 | XMS_ITS | Encounter Summary ---
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
--- OUTSIDE RECORDS SUMMARY | 2024-11-26 17:38 | XMS_ITS | Encounter Summary ---
Author Organization [facility] Address [address] [place] [address] Care Team Providers Care Charge Attendant Name Role Phone Ana Cristina Hopkins Primary Care Provider [phone] Encounter Details Date Type Department Care Team (Late st Contact Info) Description 08/04/2021 [employer] Message Enc [facility] Medical Group Orthopedic & Sports Medicine - [place] [address] [place] [address] Valdo Melgoza MD [address] [place] [address] Hip Pain Social History Tobacco Use Types Packs/Day Years [...] please move on to questions 3-9 0 08/02/2021 Comments No Sex and Gender Information Value Date Recorded Sex Assigned at Not on file Legal Sex Female 2:44 PM 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 No / Unsure 08/02/2021 1:34 PM FURNITURE INSTALLER documented as of this encounter Plan of Treatment Not on file documented as of this encounter Visit Diagnoses Not on filedocumented in this encounter Additional Health Concerns Assessment Noted Time PHQ-9 Depression Total Score: 9 08/03/19 22 2:12 PM FURNITURE INSTALLER documented as of this encounter Care Teams Charge Attendant Relationship Specialty Start [place] [address] [place] [address] PCP - General FAMILY PRACTICE 07/15/20 documented as of this encounter
--- OUTSIDE RECORDS SUMMARY | 2024-11-26 17:38 | XMS_ITS | Patient Health Record ---
Author Organization [facility] Address [address] [facility] [address] [place] [address] Care Team Providers Care Artist Consultant Name Role Phone Geovanny Fong [phone] Reason For Referral No Information Medications Medication SIG (Take, Route, Frequency, Duration) Notes Start Date End Date Status Zoloft 25 MG Tablet Oral Active Multivitamins Capsule Oral *please re view for potential update for e-prescription and drug interaction check* Active Social History Social History Additional Details Category Social Info Options Details Migrated Social History Migrated Social History Substance Use :: Has never used alcohol :: Never :: note : 09/27/2014 - , Substance Use :: Tobacco :: Never :: note : 09/27/2014 - Plan Of Treatment No Information Insurance Providers Payer Name Payer Address Payer Phone Subscriber Number Group Number Insured Name Patient Relationship to Insured Coverage Start Date Coverage End Date [address] [place] [address] [phone] [id number] Mirela Valdivia Self - patient is the insured Medical (General) History Surgical History Surgery Date(Month/Year) Other: hand surgery; 2014-09-27 Heart Surgery: ablation, Date of Procedu re: 02/2012; 2014-09-14 Colonoscopy; 2014-09-27 , Date of Procedure: 2000 ; 2014-09-27
--- OUTSIDE RECORDS SUMMARY | 2024-11-26 17:38 | XMS_ITS | Encounter Summary ---
Author Organization [facility] Address [address] [place] [address] Care Team Providers Care Fire Chief Name Role Phone Ana Cristina Hopkins DO Primary Care Provider Encounter Details Date Type Department Care Team (Late st Contact Info) Description 08/04/2021 [employer] Message Enc [facility] Medical Group Family Medicine - [place] [address] [facility], [address] [place] [phone] Ana Cristina Hopkins DO [address] [place], [place] [phone] Paperwork Social History Tobacco Use Types Packs/Day Years [...] on file Legal Sex Female 2:44 PM PLANNING ADVISOR Gender Identity Not on file Sexual Orientation Not on file COVID-19 Exposure Response Date Recorded In the last 10 days, have yo u been in contact with someone who was confirmed or suspected to have Coronavirus/COVID-19? No / Unsure 08/02/2021 1:34 PM PLANNING ADVISOR documented as of this encounter Plan of Treatment Not on file documented as of this encounter Visit Diagnoses Not on filedocumented in this encounter Additional Health Concerns Assessment Noted Time PHQ-9 Depression Total Score: 9 08/03/19 22 2:12 PM PLANNING ADVISOR documented as of this encounter Care Teams Fire Chief Relationship Specialty Start Date End Date Ana Cristina Hopkins DO [address] [place] [address] PCP - General FAMILY PRACTICE 07/15/20 documented as of this encounter
--- OUTSIDE RECORDS SUMMARY | 2024-11-26 17:38 | XMS_ITS | Encounter Summary ---
Author Organization [facility] Address [address] [place] [address] Care Team Providers Care Hybrid Powertrain Development Engineer Name Role Phone Ana Cristina Hopkins DO Primary Care Provider [phone] Reason for Visit * Reason Onset Date Comments Information 11/26/2024 Encounter Details Date Type Department Care Team (Late st Contact Info) Description 11/26/2024 Telephone [facility] Medical Group Family Medicine - [place] [address] [place] [address], [address] [place] [phone] Ana Cristina Hopkins DO [address] [place] [address] Information Social History Tobacco Use Types Packs/Day Years [...] on file Legal Sex Female 2:44 PM ATHLETIC EVENTS SCORER Gender Identity Not on file Sexual Orientation Not on file documented as of this encounter Progress Notes * Rosaura Ardon - 11/26/2024 10:22 AM CDT Wai milan, dr Nicolas office is calling to let dr know the pt was a no show there this morning. Cb# [phone] [place] documented in this encounter Plan of Treatment Not on file documented as of this encounter Visit Diagnoses Not on filedocumented in this encounter Additional Health Concerns Assessment Noted Time PHQ-9 Depression Total Score: 4 09/26/19 25 11:16 AM CDT documented as of this encounter Care Teams Hybrid Powertrain Development Engineer Relationship Specialty Start Date End Date Ana Cristina Hopkins DO [address] [place] [address] PCP - General FAMILY PRACTICE 07/15/20 documented as of this encounter
--- OUTSIDE RECORDS SUMMARY | 2024-11-26 17:38 | XMS_ITS | Encounter Summary ---
Author Organization [facility] Address [address] [place] [address] Care Team Providers Care Ferruler Name Role Phone Ana Cristina Hopkins Primary Care Provider [phone] Encounter Details Date Type Department Care Team (Late st Contact Info) Description 07/06/2021 [employer] Message Enc [facility] Medical Group Orthopedic & Sports Medicine - [place] [address] [place] [address] Valdo Melgoza MD [address] [place] [address] Handicap sticker paperwork Social History Tobacco Use Types Packs/Day Years [...] please move on to questions 3-9 0 04/07/2021 Comments No Sex and Gender Information Value Date Recorded Sex Assigned at Not on file Legal Sex Female 2:44 PM VIRGINIA LINE ATTENDANT Gender Identity Not on file Sexual Orientation Not on file COVID-19 Exposure Response Date Recorded In the last month, have you been in contact with someone who was confirmed or suspected to have Coronavirus / COVID-19? No / Unsure 06/26/2021 2:10 PM VIRGINIA LINE ATTENDANT documented as of this encounter Plan of Treatment Not on file documented as of this encounter Visit Diagnoses Not on filedocumented in this encounter Additional Health Concerns Assessment Noted Time PHQ-9 Depression Total Score: 15 021 8:57 AM VIRGINIA LINE ATTENDANT documented as of this encounter Care Teams Ferruler Relationship Specialty Start Date End Date Ana Cristina Hopkins DO [address] [place] [address] PCP - General FAMILY PRACTICE 07/15/20 documented as of this encounter
--- OUTSIDE RECORDS SUMMARY | 2024-11-26 17:38 | XMS_ITS ---
Author Organization [facility] Address [address] [place] [address] Care Team Providers Care Liner Inserter Name Role Phone Deepak Prerna Myrtle [phone] REASON FOR VISIT eron Encounters Encounter Location Date Provider Diagnosis [facility] - Prerna Sotelo [address] [place] [address] 07/27/2024 Prerna Sotelo Plan Of Treatment No Information Progress Notes * Mirela DOUGLASDOB:1975 ( 49 yo F)Acc No.[id number]:07/27/2024 Progress Notes Patient: Mirela CAMARA Provider: Ashkan Sotelo MD :1975 A ge:49 Y S ex:Female Date:07/27/2024 Address:[address] [place], [place] [id number] Subjective: * Chief Complaints: * 1 . Hm eron. * Medical History: Objective: * Vitals: Assessment: Plan: * Treatment: * Billing Information: * Visit Code: * Procedure Codes: * Electronic signature of Marlon Sotelo MD on 11/26/2024 at 05:38 PM CDT Sign off status: Pending * Provider: Ashkan Sotelo MD Date: 07/27/2024 Generated for Taryn sun/Desi/Markusitting on: 11/26/2024 05:38 PM CDT
--- OUTSIDE RECORDS SUMMARY | 2024-11-26 17:38 | XMS_ITS | Encounter Summary ---
Author Organization [facility] Address [address] [place] [address] Care Team Providers Care Professor Of Music Name Role Phone Ana Cristina Hopkins DO Primary Care Provider [phone] Encounter Details Date Type Department Care Team (Late st Contact Info) Description 01/10/2022 [employer] Message [facility] Orthopedic & Sports Medicine - [address] [address] [place], [facility] Provider Dr. Avilez office Social History Tobacco Use Types Packs/Day Years Used Date Smoking Tobacco: Former Cigarettes Q uit: 05/27/1996 Smokeless Tobacco: Never Comments:former smoker Alcohol Use Standard Drinks/Week Comments Yes 0 [...] please move on to questions 3-9 0 01/08/2022 Comments No Sex and Gender Information Value Date Recorded Sex Assigned at Not on file Legal Sex Female 2:44 PM WILTON WEAVER Gender Identity Not on file Sexual Orientation Not on file COVID-19 Exposure Response Date Recorded In the last 10 days, have yo u been in contact with someone who was confirmed or suspected to have Coronavirus/COVID-19? No / Unsure 01/08/2022 9:40 AM CDT documented as of this encounter Plan of Treatment Not on file documented as of this encounter Visit Diagnoses Not on filedocumented in this encounter Additional Health Concerns Assessment Noted Time PHQ-9 Depression Total Score: 0 08/25/19 22 3:30 PM CDT documented as of this encounter Care Teams Professor Of Music Relationship Specialty Start Date End Date Ana Cristina Hopkins DO [address] [place] [address] PCP - General FAMILY PRACTICE 07/15/20 documented as of this encounter
--- OUTSIDE RECORDS SUMMARY | 2024-11-26 17:38 | XMS_ITS | Encounter Summary ---
Author Organization [facility] Address [address] [place] [address] Care Team Providers Care Buck Presser Name Role Phone Ana Cristina Hopkins DO Primary Care Provider [phone] Encounter Details Date Type Department Care Team (Late st Contact Info) Description 12/19/2021 [employer] Message Enc [facility] Medical Group Family Medicine - [place] [address] [facility], [address] [place] [phone] Ana Cristina Hopkins DO [address] [place], [place] [phone] [employer] Social History Tobacco Use Types Packs/Day Years [...] on file Legal Sex Female 2:44 PM CUTTER HAND Gender Identity Not on file Sexual Orientation Not on file documented as of this encounter Plan of Treatment Not on file documented as of this encounter Visit Diagnoses Not on filedocumented in this encounter Additional Health Concerns Assessment Noted Time PHQ-9 Depression Total Score: 0 08/25/19 22 3:30 PM CDT documented as of this encounter Care Teams Buck Presser Relationship Specialty Start Date End Date Ana Cristina Hopkins DO [address] [place] [address] PCP - General FAMILY PRACTICE 07/15/20 documented as of this encounter
--- OUTSIDE RECORDS SUMMARY | 2024-11-26 17:38 | XMS_ITS | Encounter Summary ---
Author Organization [facility] Address [address] [place] [address] Care Team Providers Care Criminal Records Technician Name Role Phone Ana Cristina Hopkins DO Primary Care Provider [phone] Encounter Details Date Type Department Care Team (Late st Contact Info) Description 11/01/2020 [employer] Message [facility] Patient Accounts [address] [place] [address] [facility] Provider Notice of your account balance Social History Tobacco Use Types Packs/Day Years [...] on file Legal Sex Female 2:44 PM CHIEF LIBRARIAN EXTENSION DEPARTMENT Gender Identity Not on file Sexual Orientation Not on file documented as of this encounter Plan of Treatment Not on file documented as of this encounter Visit Diagnoses Not on filedocumented in this encounter Additional Health Concerns Assessment Noted Time PHQ-9 Depression Total Score: 10 021 11:41 AM CDT documented as of this encounter Care Teams Criminal Records Technician Relationship Specialty Start Date End Date Ana Cristina Hopkins DO [address] [place], [place] [address] PCP - General FAMILY PRACTICE 07/15/20 documented as of this encounter
--- OUTSIDE RECORDS SUMMARY | 2024-11-26 17:38 | XMS_ITS | Encounter Summary ---
Author Organization [facility] Address [address] [place] [address] Care Team Providers Care Cloth Finishing Range Operator Chief Name Role Phone Ana Cristina Hopkins DO Primary Care Provider [phone] Encounter Details Date Type Department Care Team (Late st Contact Info) Description 09/29/2024 Results Follow-Up [facility] Medical Group Family Medicine - [place] [address] [facility], [address] [place] [address] Ana Cristina Hopkins DO [address] [place], [place] [id number] MG SCREENING W LILIAN SHERLEY DIGI Social History Tobacco Use Types Packs/Day Years [...] on file Legal Sex Female 2:44 PM CLINIC LICENSED PRACTICAL NURSE Gender Identity Not on file Sexual Orientation Not on file documented as of this encounter Plan of Treatment Not on file documented as of this encounter Visit Diagnoses Not on filedocumented in this encounter Additional Health Concerns Assessment Noted Time PHQ-9 Depression Total Score: 4 09/26/19 25 11:16 AM CDT documented as of this encounter Care Teams Cloth Finishing Range Operator Chief Relationship Specialty Start Date End Date Ana Cristina Hopkins DO [address] [place] [address] PCP - General FAMILY PRACTICE 07/15/20 documented as of this encounter
--- OUTSIDE RECORDS SUMMARY | 2024-11-26 17:38 | XMS_ITS | Clinical Summary ---
Author Organization [facility] Address [address] [place] [address] Care Team Providers Care Clinching Machine Operator Name Role Phone Ana Cristina Hopkins DO Primary Care Provider [phone] Allergies Active Allergy Reactions Criticality Noted Date Comments Bee Venom Anaphylaxis High 07/15/2020 Tilactase Diarrhea 07/15/2020 Gluten Meal GI Upset 07/15/2020 Latex Rash Low 07/15/2020 Morphine Tachycardia 07/15/2020 Medications CALCIUM OR Active VALERIAN ROOT OR Act joaquin albuterol sulfate HFA 108 (90 Base) MCG/ACT inhalerIndicatio ns:Acute bronchitis due to other specified organisms Inhale 1 puff into the lungs 3 (three) times daily as needed for Wheezing. 18 g 3 1 Active albuterol 0.63 MG/3ML nebulizer solutionIndicati ons:Acute bronchitis due to other specified organisms Take 6 mLs (1.26 mg total) by nebulization 3 (three) times daily as needed for Wheezing. 1440 mL 4 1 Active ALPRAZolam 0.25 MG tablet Take 1 tablet (0.25 mg total) by mouth as needed. 2 Active celecoxib (CELEBREX) 200 MG capsule Take 1 capsule (200 mg total) by mouth 2 (two) times daily as needed. 3 Active traMADol ER (ULTRAM-ER) 100 MG TABLET SR 24 HR 24 hr tablet Take 1 tablet (100 mg total) by mouth daily. 3 Active loratadine (CLARITIN) 10 MG tabletIndication s:Acute bronchitis due to other specified organisms TAKE 1 TABLET BY MOUTH EVERY DAY 90 tablet 1 4 Active methotrexate (TREXALL) 2.5 MG tablet Take 6 tablets (15 mg total) by mouth once a week. 5 Active folic acid (FOLVITE) 1 MG tablet Take 1 tablet (1 mg total) by mouth daily. 4 Active UNITHROID 50 MCG tablet Take 1 tablet (50 mcg total) by mouth daily. 5 Active TIRZEPATIDE SC Inject 0.5 mg into the skin once a week. Active Albuterol-Budeso nide (AIRSUPRA) 90-80 MCG/ACT AerosolIndicatio ns:Sjogren's syndrome, with unspecified organ involvement (HHS/HCC),Mild intermittent reactive airway disease without complication (HHS/HCC) Inhale 1 puff into the lungs every 8 (eight) hours as needed. 18 g 3 5 Active REXULTI 2 MG tablet Take 1 tablet (2 mg total) by mouth daily. 5 Active sertraline (ZOLOFT) 100 MG tabletIndication s:PTSD (post-traumatic stress disorder) Take 1 tablet (100 mg total) by mouth daily. 30 tablet 5 Active Active Problems Problem Noted Date Diagnosed Date Sjogren's syndrome, with uns pecified organ involvement (HHS/HCC) 09/25/2024 Bilateral primary osteoarthritis of knee 022 Assessment & Plan (04/03/2022 8:04 PM RUBBER FLAP TUBER MACHINE OPERATOR): We discussed the risks, benefits and alternatives. The only thing proven to slow the progression of osteoarthritis is weight loss. Every pound lost relieves 4 to 6 pounds of stress across the knee. We discussed unloading braces. Formal physical therapy to help with flexibility, mobility and strength. We discussed TENS units. Nonsteroidal anti-inflammatories as well as Tylenol and pain medication and their side effects. We discussed steroid versus Visco supplement injection. We discussed eventual total knee arthroplasty. Physician directed exercises/knee conditioning program given Assessment & Plan (03/04/2022 7:47 PM CDT): We discussed the risks, benefits and alternatives. The only thing proven to slow the progression of osteoarthritis is weight loss. Every pound lost relieves 4 to 6 pounds of stress across the knee. We discussed unloading braces. Formal physical therapy to help with flexibility, mobility and strength. We discussed TENS units. Nonsteroidal anti-inflammatories as well as Tylenol and pain medication and their side effects. We discussed steroid versus Visco supplement injection. We discussed eventual total knee arthroplasty. Assessment & Plan (01/17/2022 8:06 PM CDT): We discussed the risks, benefits and alternatives. The only thing proven to slow the progression of osteoarthritis is weight loss. Every pound lost relieves 4 to 6 pounds of stress across the knee. We discussed unloading braces. Formal physical therapy to help with flexibility, mobility and strength. We discussed TENS units. Nonsteroidal anti-inflammatories as well as Tylenol and pain medication and their side effects. We discussed steroid versus Visco supplement injection. We discussed eventual total knee arthroplasty. Right worse than the left on x-ray Clinically left worse than right History of chasing dogs and significant increased pain on the left Failed physical therapy Failed Visco supplement injection Failed steroid injection Currently on infusions for ankylosing spondylitis last injection January 06 Failed tramadol Had been on prednisone Recommend MRI of the left knee to rule out fracture Knee instability, left 01/17/2022 Overview (03/04/2022): Knee arthroscopy 02/15/2022 Assessment & Plan (03/04/2022 7:46 PM CDT): Doing much better. Knee feels stable. Walking better without a cane. Continue with progressive range of motion and strengthening. Follow-up in 4 weeks for repeat evaluation Ankylosing spondylitis, unsp ecified site of spine ([facility]/HCC HHS/HCC) 09/06/2021 Assessment & Plan (01/17/2022 8:06 PM CDT): Now on infusion Simponi PTSD (post-traumatic stress disorder) 09/06/2021 Chronic cluster headache, not intractable 2021 Chronic migraine without aur a without status migrainosus, not intractable 09/06/2021 Insomnia disorder 12/22/2020 BMI 45.0-49.9, adult 08/03/2020 Assessment & Plan (01/17/2022 8:07 PM CDT): We discussed the adverse effects of weight on osteoarthritis of the knee. For every 1 pound loss, 4 to 6 pounds of stress is relieved from the knee. We discussed low carbohydrate diet to help with weight loss. 80% of weight loss is through diet. Melanoma in situ of right breast ([facility] HHS/ C) 07/15/2020 Malignant melanoma of anal skin ([facility] ) 07/15/2020 Headache affecting lower half of face 07/15/2020 Chronic pain of left knee 07/15/2020 Other iron deficiency anemia 07/15/2020 Skin melanoma ([facility]) 07/15/2020 Torn meniscus Overview (04/03/2022): Diagnostic and operative arthroscopy left knee partial meniscectomy 02/15/2022 Assessment & Plan (04/03/2022 8:03 PM RUBBER FLAP TUBER MACHINE OPERATOR): Gradually increase activities as tolerated. She is following up with her arthritis doctor for injections. Follow-up as needed. Resolved Problems Problem Noted Date Diagnosed Date Resolved Date Dyslipidemia 08/03/2020 03/06/2021 Encounters Date Type Department Care Team Description 11/26/2024 MyChart Message Enc [facility] - [place] [address], [address] ' [place] [address] Ana Cristina Hopkins, Bladder infection 11/26/2024 Telephone [facility] - [place] [address], [address] [place] [address] Ana Cristina Hopkins, Information 10/23/2024 MyChart Message Enc [facility] - [place] [address], [address] [place] [address] Ana Cristina Hopkins, DO Appointment 10/20/2024 MyChart Message Enc [facility] [address], [address] [place] [address] Ana Cristina Hopkins DO colonoscopy 09/29/2024 2:00 PM CDT - 09/29/2024 11:59 PM CDT Hospital Encounter [facility] [address] [address] Ana Cristina Hopkins DO Discharge Disposition: Home or Self Care (Routine Discharge) 09/29/2024 Results Follow-Up [facility] [address], [address] [place] [address] Ana Cristina Hopkins DO MG SCREENING W LILIAN SHERLEY DIGI 09/29/2024 Travel 09/25/2024 10:40 AM CDT Office Visit [facility] [address], [address] [place] [address] Ana Cristina Hopkins DO Physical (Pt here for annual physical. [facility]) 09/25/2024 Travel 09/17/2024 MyChart Message Enc [facility] [address], [address] [place] [address] Ana Cristina Hopkins DO mammogram 09/15/2024 Scan [facility] INFO SRVCS Scanned, Doc Med Group from Last 3 Months Immunizations Immunization Administration Dates Next Due Influenza (Generic) 02/20/2021 Influenza Adult (Generic) 02/20/2021 PFIZER COVID-19 (ORIGINAL FO RMULATION, PURPLE CAP) mRNA, LNP-S, PF, 30 MCG/0.3 ML DOSE 08/08/2020,07/26/2020 Pneumococcal (Pneumovax 23) 06/22/2021 Social History Tobacco Use Types Packs/Day Years Used Date Smoking Tobacco: Former Cigarettes Q uit: 05/27/1996 Smokeless Tobacco: Never Tobacco Cessation:Counseling Given: No Comments:former smoker Alcohol Use Standard Drinks/Week Comments [...] on file Legal Sex Female 2:44 PM RUBBER FLAP TUBER MACHINE OPERATOR Gender Identity Not on file Sexual Orientation Not on file Last Filed Vital Signs Vital Sign Reading Time Taken Comments Blood Pressure 128/82 09/25/2024 10:31 AM CDT Pulse 73 09/25/2024 10:31 AM CDT Temperature 36.6 C (97.8 F) 09/25/2024 10:31 AM CDT Respiratory Rate 16 09/25/2024 10:31 AM CDT Oxygen Saturation 97% 09/25/2024 10:31 AM CDT Inhaled Oxygen Concentration - - Weight 117.9 kg (260 lb) 09/25/2024 10:31 AM CDT Height 160 cm (5' 3) 09/25/2024 10:31 AM CDT Body Mass Index 46.06 09/25/2024 10:31 AM CDT Plan of Treatment Health Maintenance Due Date Last Done Comments Colorectal Cancer Screening Colonoscopy (10 Years) 1976 Hepatitis C 1994 DTaP, Tdap and Td Vaccines ( 1 - Tdap) 1995 Hepatitis B Vaccines (1 of 3 - 19+ 3-dose series) 1995 Pneumococcal Vaccine: Pediatrics (0 to 5 Years) and At-Risk Patients (6 to 49 Years) (2 of 2 - PCV) 06/22/2022 06/22/2021 COVID-19 Vaccine (2023-2 5 season) 2024 01/20/2021, 08/08/2020, 07/26/2020 Annual Physical 09/25/2025 09/25/2024, 01/16/2022 Mammogram Screening 09/29/2026 09/29/2024, 09/14/2022, 09/29/2020 PHQ-2 (Physician [place]) Completed 09/25/2024 Meningococcal B Vaccine Aged Out No l onger eligible based on patient's age to complete this topic Meningococcal Vaccine Aged Out No karen steven eligible based on patient's age to complete this topic RSV Immunizations Under 20 Months Aged Out No longer eligible b ased on patient's age to complete this topic Procedures Procedure Name Priority Date/Time Associated Diagnosis Comments MG SCREENING W LILIAN SHERLEY DIGI Routine 09/29/2024 2:39 PM CDT Screening mammogram for breast cancer from Last 3 Months Results * MG SCREENING W LILIAN SHERLEY DIGI (09/29/2024 2:39 PM CDT) Anatomical Region Laterality Modality Breast Bilateral Mammography 09/29/2024 2:48 PM CDT Impressions 09/29/2024 2:50 PM CDT IMPRESSION: No suspicious mammographic findings. Recommendation: 1. Routine Screening, Bilateral Assessment: ACR BI-RADS 2 - BENIGN FINDING(S) Ordered By: ANA CRISTINA HOPKINS Interpreted By: Atilio Magaña, 09/29/2024 2:48 PM Narrative 09/29/2024 2:50 PM CDT [facility] [address] [place] [address] Examination: Screening bilateral mammogram Exam Date/Time: 09/29/2024 2:10 PM Clinical history: Prior benign right biopsy Comparison: 09/14/2022 Technique: Digital screening mammography of both breasts was performed. Breast tomosynthesis acquisitions were obtained and reviewed. This study was read with the assistance of a computer-aided detection system. Tissue density: There are scattered areas of fibroglandular density. Findings: No suspicious masses, malignant appearing calcifications, skin thickening or other abnormalities are present. No significant change from the prior exam. Ana Cristina Hopkisn DO MAMMO Final Result from Last 3 Months Insurance [facility] Care Teams Clinching Machine Operator Relationship Specialty Start Date End Date Ana Cristina Hopkins DO [address] [place] [id number] PCP - General FAMILY PRACTICE 07/15/20
--- OUTSIDE RECORDS SUMMARY | 2024-11-26 17:38 | XMS_ITS | Encounter Summary ---
Author Organization [facility] Address [address] [place] [address] Care Team Providers Care Field Organizer Name Role Phone Ana Cristina Hopkins DO Primary Care Provider Encounter Details Date Type Department Care Team (Late st Contact Info) Description 07/31/2021 MyCVicept Therapeuticst Message Enc [facility] Family Medicine - [place] [address], [address] [place] [phone] Ana Cristina Hopkins DO [address] [place], [place] [id number] Headache meds Social History Tobacco Use Types Packs/Day Years [...] on file Legal Sex Female 2:44 PM MEXICAN FOOD MACHINE TENDER Gender Identity Not on file Sexual Orientation Not on file COVID-19 Exposure Response Date Recorded In the last 10 days, have yo u been in contact with someone who was confirmed or suspected to have Coronavirus/COVID-19? No / Unsure 08/02/2021 1:34 PM MEXICAN FOOD MACHINE TENDER documented as of this encounter Progress Notes * Ana Cristina Hopkins DO - 07/31/2021 4:17 PM CST If you are on topamax 25mg orally stop the medication and make an appt . We will need to check blood pressure and can also start on a different medication CAN FOOD MACHINE TENDER * Ana Cristina Hopkins DO - 07/31/2021 4:16 PM CSTFrom: Mirela Valdivia To: Dr. Ana Cristina Hopkins Sent: 07/31/2021 3:23 PM MEXICAN FOOD MACHINE TENDER Subject: Headache meds Doc, Went to eye doc today because my eyesight has changed drastically in the past few months and the eye doc thinks it's because of the headache medicine (TOP). Is there another med that I could take before I have to spend a pocket full of money to get new glasses?. I will be going back on Sat to get contacts, as of now I cannot drive at night due to not being able to see far away, meaning I can not see the road signs in front of me. CAN FOOD MACHINE TENDER documented in this encounter Plan of Treatment Not on file documented as of this encounter Visit Diagnoses Not on filedocumented in this encounter Additional Health Concerns Assessment Noted Time PHQ-9 Depression Total Score: 15 04/07/ 021 8:57 AM MEXICAN FOOD MACHINE TENDER documented as of this encounter Care Teams Field Organizer Relationship Specialty Start Date End Date Ana Cristina Hopkins DO [address] [place] [address] PCP - General FAMILY PRACTICE 07/15/20 documented as of this encounter
--- OUTSIDE RECORDS SUMMARY | 2024-11-26 17:38 | XMS_ITS | Encounter Summary ---
Author Organization [facility] Healthcare Address [address] [place] [address] Care Team Providers Care Liquor Establishment Manager Name Role Phone Ana Cristina Hopkins DO Primary Care Provider [phone] Reason for Visit * Reason Comments Urinary Symptom Symptoms started on Saturday, Patient states that sharp pain in stomach to vagina Encounter Details Date Type Department Care Team (Late st Contact Info) Description 11/26/2024 5:00 PM CDT Office Visit [facility] at [address] [address] Phyllis Haddad NP [address] [place] [address] [address] [place], [place] [phone] Urinary frequency (Primary Dx); Abdominal pain; Right upper quadrant abdominal tenderness without rebound tenderness; Right lower quadrant abdominal pain Social History Tobacco Use Types Packs/Day Years Used Date Smoking Tobacco: Never Assessed Comments No Sex and Gender Information Value Date Recorded Sex Assigned at Not on file Legal Sex Female 3:17 PM CRYSTAL LAPPER Gender Identity Not on file Sexual Orientation Not on file documented as of this encounter Last Filed Vital Signs Vital Sign Reading Time Taken Comments Blood Pressure 123/79 11/26/2024 4:59 PM CDT Pulse 90 11/26/2024 4:59 PM CDT Temperature 36.6 C (97.9 F) 11/26/2024 4:59 PM CDT Respiratory Rate 18 11/26/2024 4:59 PM CDT Oxygen Saturation 99% 11/26/2024 4:59 PM CDT Inhaled Oxygen Concentration - - Weight 117 kg (258 lb) 11/26/2024 4:59 PM CDT Height - - Body Mass Index 45.7 03/13/2024 4:26 PM CDT documented in this encounter Plan of Treatment Upcoming Encounters Date Type Department Care Team (Late st Contact Info) Description 06/02/2025 9:30 AM CRYSTAL LAPPER Hospital Encounter [facility] [address] [place], [place] [address]Berenice Null MD [address] [place] [address] 06/02/2025 9:30 AM CRYSTAL LAPPER - 06/02/2025 10:00 AM CRYSTAL LAPPER Surgery [address] [address]Berenice Null MD [address] [place] [address] COLONOSCOPY Scheduled Orders Name Type Priority Associated Diagnoses Orde r Schedule Urine culture Urine, clean voided Microbiology Routine Urinary frequency Expected: 11/26/2024, Expires: 11/26/2025 Scheduled Procedures Name Priority Associated Diagnoses Date/Ti me COLONOSCOPY History of colonic polyps 06/02/2025 9:30 AM CRYSTAL LAPPER documented as of this encounter Procedures Procedure Name Priority Date/Time Associated Diagnosis Comments POCT URINALYSIS DIPSTICK Routine 11/26/2024 5:07 PM CDT Urinary frequency documented in this encounter Results * POCT urinalysis dipstick (11/26/2024 5:07 PM CDT) Color, Urine, POC Light Yellow Clarity, ur, POC Clear Clear Glucose, ur, POC Negative Negative Bilirubin, ur, POC Negative Negative Ketones, ur, POC Negative Negative Specific [place], POC 1.030 1.003 - 1.030 Blood, ur, POC Negative Negative pH, ur, POC 7.0 5.0 - 8.0 Protein, ur, POC Negative Negative Urobilinogen, urine, POC 0.2 0.2 - 1.0 mg/dL Nitrite, ur, POC Negative Negative Leukocytes, ur, POC Negative Negative Lot Number [id number] Urine 11/26/2024 5:07 PM CDT Ranita Haddad GEARCASE ASSEMBLER POINT OF CARE TEST ORDERABLES F inal Result documented in this encounter Visit Diagnoses Diagnosis History of colonic polyps- Primary Personal history of colonic polyps Urinary frequency- Primary Abdominal pain Abdominal pain, unspecified site Right upper quadrant abdominal tenderness without rebound tenderness Right lower quadrant abdominal pain History of colonic polyps Personal history of colonic polyps documented in this encounter Historical Medications * This list may reflect changes made after this encounter. methotrexate 2.5 mg tablet TAKE 6 TABLETS (15 MG) BY MOUTH ONCE WEEKLY Unithroid 50 mcg tablet TAKE 1 TABLET BY MOUTH ONCE A DAY 90 DAYS gabapentin (NEURONTIN) 400 mg capsule 1 capsule (400 mg total) Airsupra 90-80 mcg/actuation HFA aerosol inhaler Inhale 1 puff every 8 (eight) hours as needed 09/25/2024 added in this encounter Care Teams Liquor Establishment Manager Relationship Specialty Start Date End Date Ana Cristina Hopkins DO [address] [place] [id number] PCP - General Family Medicine 09/30/24 documented as of this encounter
--- OUTSIDE RECORDS SUMMARY | 2024-11-26 17:38 | XMS_ITS | Patient Health Record ---
Author Organization [facility] Address [address] [facility] [address] [place] [address] Care Team Providers Care Assistant Corporation Counsel Name Role Phone Jose Ramon Bruce MD Primary Care Provider Unavail enedelia Barton MD, Joshua Unavailable [phone] Allergies Allergen (clinical drug ingredient) Drug/Non Drug Allergy documented on EMR Reaction Allergy Type Onset Date Status morphine Morphine Sulfate Unknown Drug Allergy Active eluxadoline Viberzi Unknown Drug Allergy Activ e Latex Latex Unknown Allergy Active Reason For Referral No Information Medications Medication SIG (Take, Route, Frequency, Duration) Notes Start Date End Date Status Cholestyramine 4 GM Packet 1 packet mixe d with water or non-carbonated drink Orally Twice a day; Duration: 30 Active Imodium A-D 2 MG Tablet 1 tablet Orally 8 time(s) a day; Duration: 30 day(s) 03/13/2016 Active Atenolol 25 MG Tablet 1 tablet Orally On ce a day Active Zoloft 50 MG Tablet 1 tablet Orally Once a day; Duration: 30 day(s) 100mg Active Prevacid Active Hyoscyamine 0.125 Tablet 1 PO every 8 ho urs prn abdominal pain; Duration: 30 Active Immunizations Vaccine Route Administration Date Status Comme nts Flu shot Unknown 01/03/2015 Refused pt has not bee n vaccinated Flu shot Unknown 01/10/2016 Administered Social History Social History Additional Details Category Social Info Options Details Social History Occupation student Alcohol None Marital status Yes 3 children Tobacco Use None Illicit Drug Use Never Problems Problem Type SNOMED Code ICD Code Onset Dates Problem Status W/U Status Risk Notes Problem Diarrhea (80637103) Diarrhea (787.91) Active confirmed lIkely IBS Problem Irritable bowel syndrome (16059250) Irritable bowel syndrome (564.1) Active confirmed Problem Heartburn (36263552) HEARTBURN (787.1) Active confirmed Well controlled with PPI Problem Nausea and vomiting (68780260) Nausea & vomiting (R11.2) Active confirmed Problem Obesity (384619712) Obesity (E66.9) Active confirmed patient reports been active and eating minimally (today has not eaten at all at 3 PM). 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 Suspect IBS related. Previous GB w/u negative Problem CT of abdomen abnormal (7405268248852 9107) Abnormal CT of the abdomen (R93.5) Active confirmed Problem Weight loss (606540470) Weight loss (R63.4) Active confirmed Problem Acute diarrhea (907844208) Acute diarrhea (R19.7) Active confirmed Problem Irritable bowel syndrome with diarrhea (671816633) Irritable bowel syndrome with diarrhea (K58.0) Active confirmed Problem Generalized abdominal pain (407288640) Generalized abdominal pain (R10.84) Active confirmed Problem Abdominal pain (19706502) Diffuse abdominal pain (R10.9) Active confirmed Plan Of Treatment No Information Insurance Providers Payer Name Payer Address Payer Phone Subscriber Number Group Number Insured Name Patient Relationship to Insured Coverage Start Date Coverage End Date [facility] (Open Access HMO/POS) [address] [place] [address] [id number] SHREE GARIBAY Self - patient is the insured Medical (General) History Medical History History ICD Code Irritable bowel syndrome Yes Heart Disease/SVT 02/2013: Normal CMP, TSH, CBC 2011 normal HIDA scan 2010 gastric emptying study normal CT A/P 01/03/16: Diverticulosi s without diverticulitis. Jennifer mesentery without lymphadenopathy which can be seen in panniculitis. 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
--- OUTSIDE RECORDS SUMMARY | 2024-11-26 17:38 | XMS_ITS | Patient Health Record ---
Author Organization DARYL WOLFE MD , [facility] [address] Address [address] [place], [place] [id number] Care Team Providers Care Flaring Machine Operator Name Role Phone Holly Oviedo Primary Care Provider Unavailab DARYL Gregorio Unavailable [phone] Kerry Corrales M.D. Unavailable Unavailable Allergies Allergen (clinical drug ingredient) Drug/Non Drug Allergy documented on EMR Reaction Allergy Type Onset Date Status morphine Morphine Sulfate Unknown Drug Allergy Active Reason For Referral No Information Medications Medication SIG (Take, Route, Frequency, Duration) Notes Start Date End Date Status Atenolol 25 MG Tablet TAKE 1 TABLET BY O RAL ROUTE EVERY DAY Oral; Duration: 90 Active Sertraline HCl 50 MG Tablet TAKE 1 TABLE T BY MOUTH EVERY DAY Orally Active Gabapentin 400 MG Capsule 1 capsule Oral ly four times per day as needed; Duration: 30 days Active Ibuprofen 800 MG Tablet TAKE 1 TABLET BY MOUTH TWICE A DAY NEEDED Oral; Duration: 30 Active Mucinex 600 MG Tablet Extended Release 12 Hour 1 0.5 tablet Orally every 12 hrs 03/31/2020 Active Terbinafine HCl 250 MG Tablet TAKE 1 TABLET BY MOUTH EVERY DAY DIRECTED Oral; Duration: 30 Active Social History Tobacco Use: Social History Observation Description Date Details (start date - stop date) Former Smoker NA - NA Social History Opioid Risk Assessment Social Info Question Answer Notes Risk Index for Overdose or Serious Opioid-Induced Respiratory Depression (RIOSORD) Risk Index Score 0-24 indicates 3% probability of opioid induced respiratory depression RAW SCORE= 15 Drugs/Alcohol: Social Info Question Answer Notes Drugs Have you used drugs other than those for medical reasons in the past 12 months? No Household: Social Info Question Answer Notes Household Marital status: Tobacco Use: Social Info Question Answer Notes Tobacco Use/Smoking Are you a former smoker How long has it been since you last smoked? > 10 years Additional Details Category Social Info Options Details Drugs/Alcohol: Do you smoke marijuana? De nies Do you drink alcohol? No Problems Problem Type SNOMED Code ICD Code Onset Dates Problem Status W/U Status Risk Notes Problem Chronic pain syndrome (794536471) Chronic pain syndrome (G89.4) Active confirmed Problem Fibromyalgia (601801373) Fibromyalgia (M79.7) Active confirmed Problem Localized osteoarthrosis (19744217) Localized osteoarthritis of both knees (M17.0) Active confirmed Problem Hypertension (60224962) Hypertension (I10) Active confirmed Problem Trochanteric bursitis of right hip (927136158167613) Trochanteric bursitis of right hip (M70.61) Active confirmed Problem Trochanteric bursitis of left hip (057102028324723) Trochanteric bursitis of left hip (M70.62) Active confirmed Plan Of Treatment Pending Test Test Name Order Date DT_Carisoprodol Definitive Test 06/15/19 DT_Codeine Definitive Test 06/15/2020 DT_Alcohol Definitive 06/15/2020 DT_Fentanyl Definitive Test 06/15/2020 DT_Hydromorphone Definitive Test 021 DT_Hydrocodone Definitive Test DT_Morphine Definitive Test 06/15/2020 DT_Methadone Definitive Test 06/15/2020 DT_Oxycodone Definitive Test 06/15/2020 DT_Tapentadol Definitive Test 06/15/2020 DT_THC Definitive Test 06/15/2020 DT_Tramadol Definitive Test 06/15/2020 DT_Validity Oxidant 06/15/2020 Insurance Providers Payer Name Payer Address Payer Phone Subscriber Number Group Number Insured Name Patient Relationship to Insured Coverage Start Date Coverage End Date [facility] [id number] [place] [phone] [id number] Timothy Valdivia Spouse - patient is the spouse of the insured Medical (General) History Medical History History ICD Code fibromyalgia obesity right knee arthritis and swelling restless leg syndrome Surgical History Surgery Date(Month/Year) Knee surgery right hand surgery due to work accident. partial hysterectomy heart surgery, ablation
--- OUTSIDE RECORDS SUMMARY | 2024-11-26 17:39 | XMS_ITS | Clinical Summary ---
Author Organization [address] Address [address] [place] [address] Care Team Providers Care Dope Firer Name Role Phone Ana Cristina Hopkins DO Primary Care Provider [phone] Allergies Active Allergy Reactions Criticality Noted Date Comments Gluten Protein Stomach upset Low 07/15/2020 Latex Rash Medium 06/12/2023 Morphine Palpitations Low 06/12/2023 Tilactase Diarrhea Low 07/15/2020 Venom-Honey Bee Anaphylaxis High 07/15/2020 Medications albuterol 0.63 mg/3 mL nebulizer solution Take 6 mL (1.26 mg total) by nebulization 3 (three) times a day as needed 1 Active ALPRAZolam (XANAX) 0.25 mg tablet Take 1 tablet (0.25 mg total) by mouth as needed 2 Active ARIPiprazole (ABILIFY) 10 mg tablet Take 1 tablet (10 mg total) by mouth daily 3 Active atenoloL (TENORMIN) 50 mg tablet Take 1 tablet (50 mg total) by mouth 2 (two) times a day 3 Active celecoxib (CeleBREX) 200 mg capsule Take 1 capsule (200 mg total) by mouth 2 (two) times a day as needed 3 Active cyclobenzaprine (FLEXERIL) 5 mg tablet 1 tablet (5 mg total) 2 Active ergocalciferol (VITAMIN D) 50,000 unit capsule Take 1 capsule (50,000 Units total) by mouth 3 Active guaiFENesin ER (Mucinex) 600 mg 12 hr tablet 1 tablet (600 mg total) every 12 hours 0 Active ibuprofen (ADVIL,MOTRIN) 800 mg tablet 1 tablet (800 mg total) 2 Active loratadine (CLARITIN) 10 mg tablet Take 1 tablet (10 mg total) by mouth daily 3 Active sertraline (ZOLOFT) 100 mg tablet Take 0.5 tablets (50 mg total) by mouth daily Active traMADol ER (ULTRAM-ER) 100 mg 24 hr tablet Take 1 tablet (100 mg total) by mouth daily 3 Active albuterol HFA (PROVENTIL HFA,VENTOLIN HFA,PROAIR HFA) 90 mcg/actuation inhalerIndicatio ns:Mild intermittent asthma with exacerbation Inhale 2 puffs every 6 (six) hours as needed for wheezing or shortness of breath 18 g 4 Active Rexulti 2 mg tablet 1 tablet (2 mg total) daily 4 Active benzonatate (TESSALON) 200 mg capsuleIndicatio ns:Mild intermittent asthma with exacerbation Take 1 capsule (200 mg total) by mouth 3 (three) times a day as needed for cough 30 capsule 4 Active Additional Information Patient not taking.Reported on 11/26/2024 Airsupra 90-80 mcg/actuation HFA aerosol inhaler Inhale 1 puff every 8 (eight) hours as needed 5 Active gabapentin (NEURONTIN) 400 mg capsule 1 capsule (400 mg total) Active Unithroid 50 mcg tablet TAKE 1 TABLET BY MOUTH ONCE A DAY 90 DAYS Active methotrexate 2.5 mg tablet TAKE 6 TABLETS (15 MG) BY MOUTH ONCE WEEKLY Active Active Problems Problem Noted Date Diagnosed Date Chronic pain syndrome 11/26/2024 Fibromyalgia 11/26/2024 Hypertension 11/26/2024 Localized osteoarthrosis 11/26/2024 Torn meniscus 11/26/2024 Overview (11/26/2024): Diagnostic and operative arthroscopy left knee partial meniscectomy 02/15/2022 Trochanteric bursitis of left hip 11/26/2024 Trochanteric bursitis of right hip 11/26/2024 History of colonic polyps 09/30/2024 Sjogren's syndrome 09/25/2024 Venosclerosis 07/19/2022 Bilateral primary osteoarthritis of knee 022 Knee instability, left 01/17/2022 Overview (11/26/2024): Knee arthroscopy 02/15/2022 Ankylosing spondylitis 09/06/2021 Chronic cluster headache, not intractable 2021 Chronic migraine without aur a without status migrainosus, not intractable 09/06/2021 PTSD (post-traumatic stress disorder) 09/06/2021 Insomnia disorder 12/22/2020 Absolute anemia 07/15/2020 Chronic pain of left knee 07/15/2020 Headache affecting lower half of face 07/15/2020 Malignant melanoma of anal skin 07/15/2020 Melanoma in situ of right breast 07/15/2020 Skin melanoma 07/15/2020 Encounters Date Type Department Care Team Description 11/26/2024 5:00 PM CDT Office Visit [facility] Convenient Care at [address] [address] Phyllis Haddad NP Urinary frequency (Primary Dx); Abdominal pain; Right upper quadrant abdominal tenderness without rebound tenderness; Right lower quadrant abdominal pain 09/30/2024 Telephone [facility] Medical Group Gastroenterology at [address] [place] [address] Dhara Katz from Last 3 Months Immunizations Immunization Administration Dates Next Due Influenza, Quadrivalent, Delia l Culture-based MDCK, Preservative Free, Antibiotic Free, Intramuscular 02/15/2023 Influenza, Quadrivalent, Spl it, Preservative Free, Intramuscular 02/01/2022,02/20/2021 Influenza, Unspecified 02/20/2021 Pneumococcal Polysaccharide PPV23 06/22/2021 Social History Tobacco Use Types Packs/Day Years Used Date Smoking Tobacco: Never Assessed Comments No Sex and Gender Information Value Date Recorded Sex Assigned at Not on file Legal Sex Female 3:17 PM MUSCULOSKELETAL PHYSIOTHERAPIST Gender Identity Not on file Sexual Orientation Not on file Obstetrics History Last Filed Vital Signs Vital Sign Reading Time Taken Comments Blood Pressure 123/79 11/26/2024 4:59 PM CDT Pulse 90 11/26/2024 4:59 PM CDT Temperature 36.6 C (97.9 F) 11/26/2024 4:59 PM CDT Respiratory Rate 18 11/26/2024 4:59 PM CDT Oxygen Saturation 99% 11/26/2024 4:59 PM CDT Inhaled Oxygen Concentration - - Weight 117 kg (258 lb) 11/26/2024 4:59 PM CDT Height 160 cm (5' 3) 03/13/2024 4:26 PM CDT Body Mass Index 45.7 03/13/2024 4:26 PM CDT Plan of Treatment Upcoming Encounters Date Type Department Care Team (Late st Contact Info) Description 06/02/2025 9:30 AM MUSCULOSKELETAL PHYSIOTHERAPIST Hospital Encounter [address] [address] Berenice García MD [address] [facility] [place] [address] 06/02/2025 9:30 AM MUSCULOSKELETAL PHYSIOTHERAPIST - 06/02/2025 10:00 AM MUSCULOSKELETAL PHYSIOTHERAPIST Surgery [address] [address]Berenice Null MD [address] [facility] [place] [address] COLONOSCOPY Scheduled Procedures Name Priority Associated Diagnoses Date/Ti me COLONOSCOPY History of colonic polyps 06/02/2025 9:30 AM MUSCULOSKELETAL PHYSIOTHERAPIST Health Maintenance Due Date Last Done Comments Colon Cancer Screening-Colonoscopy 1976 Depression Screening 1976 Hepatitis C Screening 1976 DTaP/Tdap/Td Vaccine (1 - Tdap) 1987 Hepatitis B Screening 1994 Regular Well Visit/Exam 18-64 1994 Pneumococcal vaccine <65 (2 of 2 - PCV) 06/22/2022 06/22/2021 Covid-19 Vaccine (2023-2 5 season) 2024 02/15/2023, 10/04/2022, 02/01/2022, Additional history exists Influenza Vaccine (#1) 2025 , 02/01/2022, 02/20/2021, Additional history exists Breast Cancer Screening-Mammogram 09/29/2025 09/29/2024, 09/29/2024, 09/14/2022, Additional history exists Procedures Procedure Name Priority Date/Time Associated Diagnosis Comments POCT URINALYSIS DIPSTICK Routine 11/26/2024 5:07 PM CDT Urinary frequency from Last 3 Months Results * POCT urinalysis dipstick (11/26/2024 5:07 PM CDT) Color, Urine, POC Light Yellow Clarity, ur, POC Clear Clear Glucose, ur, POC Negative Negative Bilirubin, ur, POC Negative Negative Ketones, ur, POC Negative Negative Specific [place], POC 1.030 1.003 - 1.030 Blood, ur, POC Negative Negative pH, ur, POC 7.0 5.0 - 8.0 Protein, ur, POC Negative Negative Urobilinogen, urine, POC 0.2 0.2 - 1.0 mg/dL Nitrite, ur, POC Negative Negative Leukocytes, ur, POC Negative Negative Lot Number [id number] Urine 11/26/2024 5:07 PM CDT Phyllis Haddad NP POINT OF CARE TEST ORDERABLES F inal Result from Last 3 Months Insurance [facility] CHOICE PLUS Care Teams Dope Firer Relationship Specialty Start Date End Date Ana Cristina Hopkins DO [address] [place] [address] PCP - General Family Medicine 09/30/24
--- OUTSIDE RECORDS SUMMARY | 2024-11-26 17:39 | XMS_ITS | Encounter Summary ---
Author Organization [facility] Address [address] [place] [address] Care Team Providers Care Merchandise Planner Name Role Phone Ana Cristina Hopkins DO Primary Care Provider Encounter Details Date Type Department Care Team (Late st Contact Info) Description 03/13/2024 5 examples Message Enc [facility] Medical Group Family Medicine - [place] [address], [address] [place] [phone] Ana Cristina Hopkins DO [address] [place], [place] [phone] Sick again Social History Tobacco Use Types Packs/Day Years [...] Date Recorded Patient Health Questionnaire-2 Score 0 08/17/2022 Comments No Sex and Gender Information Value Date Recorded Sex Assigned at Not on file Legal Sex Female 2:44 PM LICENSED PRACTICAL VOCATIONAL NURSE Gender Identity Not on file Sexual Orientation Not on file documented as of this encounter Plan of Treatment Not on file documented as of this encounter Visit Diagnoses Not on filedocumented in this encounter Additional Health Concerns Assessment Noted Time PHQ-9 Depression Total Score: 0 08/25/19 22 3:30 PM CDT documented as of this encounter Care Teams Merchandise Planner Relationship Specialty Start Date End Date Ana Cristina Hopkins DO [address] [place] [address] PCP - General FAMILY PRACTICE 07/15/20 documented as of this encounter
--- OUTSIDE RECORDS SUMMARY | 2024-11-26 17:39 | XMS_ITS | Encounter Summary ---
Author Organization [facility] Address [address] [place] [address] Care Team Providers Care Sales Trainee Name Role Phone Ana Cristina Hopkins DO Primary Care Provider [phone] Encounter Details Date Type Department Care Team (Late st Contact Info) Description 04/11/2021 [employer] Message Enc [facility] Medical [facility] Family Medicine - [place] [address] [facility] [address], [address] [place] [phone] Ana Cristina Hopkins DO [address] [place], [place] [phone] question pertaining to lyrica Social History Tobacco Use Types Packs/Day Years [...] on file Legal Sex Female 2:44 PM NATURAL GAS PLANT TECHNICIAN Gender Identity Not on file Sexual Orientation Not on file COVID-19 Exposure Response Date Recorded In the last month, have you been in contact with someone who was confirmed or suspected to have Coronavirus / COVID-19? No / Unsure 04/13/2021 11:30 AM NATURAL GAS PLANT TECHNICIAN documented as of this encounter Plan of Treatment Not on file documented as of this encounter Visit Diagnoses Not on filedocumented in this encounter Additional Health Concerns Assessment Noted Time PHQ-9 Depression Total Score: 15 021 8:57 AM NATURAL GAS PLANT TECHNICIAN documented as of this encounter Care Teams Sales Trainee Relationship Specialty Start Date End Date Ana Cristina Hopkins DO [address] [place] [address] PCP - General FAMILY PRACTICE 07/15/20 documented as of this encounter
--- OUTSIDE RECORDS SUMMARY | 2024-11-26 17:39 | XMS_ITS | Encounter Summary ---
Author Organization [facility] Address [address] [place] [address] Care Team Providers Care Workers' Compensation Mediator Name Role Phone KellieAna Cristina martinez Primary Care Provider [phone] Encounter Details Date Type Department Care Team (Late st Contact Info) Description 02/23/2022 [employer] Message Enc [facility] [address] [facility] [facility] [address] [place] [address] [place] [address] [place] [address] Akash Social History Tobacco Use Types Packs/Day Years [...] on file 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 No / Unsure 02/20/2022 6:03 AM CDT documented as of this encounter Plan of Treatment Not on file documented as of this encounter Visit Diagnoses Not on filedocumented in this encounter Additional Health Concerns Assessment Noted Time PHQ-9 Depression Total Score: 0 08/25/19 22 3:30 PM CDT documented as of this encounter Care Teams Workers' Compensation Mediator Relationship Specialty Start Date End Date Ana Cristina Hopkins DO [address] [place] [address] PCP - General FAMILY PRACTICE 07/15/20 documented as of this encounter
--- OUTSIDE RECORDS SUMMARY | 2024-11-26 17:39 | XMS_ITS | Encounter Summary ---
Author Organization [facility] Address [address] [place] [address] Care Team Providers Care Sterile Products Processor Name Role Phone Ana Cristina Hopkins Primary Care Provider [phone] Encounter Details Date Type Department Care Team (Late st Contact Info) Description 02/07/2022 [employer] Message Enc [facility] Medical Group Orthopedic & Sports Medicine - [place] [address] [place] [address] Valdo Melgoza MD [address] [place] [address] Handicap sign Social History Tobacco Use Types Packs/Day Years [...] file Legal Sex Female 2: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 No / Unsure 02/05/2022 11:16 AM CDT documented as of this encounter Plan of Treatment Not on file documented as of this encounter Visit Diagnoses Not on filedocumented in this encounter Additional Health Concerns Assessment Noted Time PHQ-9 Depression Total Score: 0 08/25/19 22 3:30 PM CDT documented as of this encounter Care Teams Sterile Products Processor Relationship Specialty Start Date End Date Ana Cristina Hopkins DO [address] [place] [address] PCP - General FAMILY PRACTICE 07/15/20 documented as of this encounter
--- OUTSIDE RECORDS SUMMARY | 2024-11-26 17:39 | XMS_ITS | Encounter Summary ---
Author Organization [facility] Address [address] [place] [address] Care Team Providers Care Lieutenant Ballistics Name Role Phone Ana Cristina Hopkins DO Primary Care Provider [phone] Encounter Details Date Type Department Care Team (Late st Contact Info) Description 01/15/2024 [employer] Message Enc [facility] Medical Group Family Medicine - [place] [address] [facility], [address] [place] [phone] Ana Cristina Hopkins DO [address] [place], [place] [phone] Timothy Valdivia Social History Tobacco Use Types Packs/Day Years [...] on file Legal Sex Female 2:44 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
--- OUTSIDE RECORDS SUMMARY | 2024-11-26 17:39 | XMS_ITS | Referral Summary ---
Author Organization [address] [address] Care Team Providers Care Well Flow Operator Name Role Phone Ana Cristina Hopkins DO Primary Care Provider [phone] Encounters Date Type Department Care Team Description 11/26/2024 5:00 PM CDT Office Visit [facility] Medical Group Convenient Care at [address] [address] Phyllis Haddad NP Urinary frequency (Primary Dx); Abdominal pain; Right upper quadrant abdominal tenderness without rebound tenderness; Right lower quadrant abdominal pain 09/30/2024 Telephone [facility] Medical Group Gastroenterology at [address] [place] [address] Dhara Katz from Last 3 Months Allergies Active Allergy Reactions Criticality Noted Date [...] of right breast 07/15/2020 Skin melanoma 07/15/2020 Immunizations Immunization Administration Dates Next Due Influenza, [...] on file Legal Sex Female 3:17 PM SENIOR UI UX DESIGNER Gender Identity Not on file Sexual Orientation [...] st Contact Info) Description 06/02/2025 9:30 AM SENIOR UI UX DESIGNER Hospital Encounter [address] [address] Berenice García MD [address] [facility] [place] [address] 06/02/2025 9:30 AM SENIOR UI UX DESIGNER - 06/02/2025 10:00 AM SENIOR UI UX DESIGNER Surgery [address] [address] Berenice García MD [address] [facility] [place] [address] COLONOSCOPY Scheduled Procedures Name Priority Associated Diagnoses Date/Ti me COLONOSCOPY History of colonic polyps 06/02/2025 9:30 AM SENIOR UI UX DESIGNER Procedures Procedure Name Priority Date/Time Associated Diagnosis Comments POCT URINALYSIS DIPSTICK Routine 11/26/2024 5:07 PM CDT Urinary frequency from Last 3 Months Results * POCT urinalysis dipstick (11/26/2024 5:07 PM CDT) Color, Urine, POC Light Yellow Clarity, ur, POC Clear Clear Glucose, ur, POC Negative Negative Bilirubin, ur, POC Negative Negative Ketones, ur, POC Negative Negative Specific [place], POC 1.030 1.003 - 1.030 Blood, ur, POC Negative Negative pH, ur, POC 7.0 5.0 - 8.0 Protein, ur, POC Negative Negative Urobilinogen, urine, POC 0.2 0.2 - 1.0 mg/dL Nitrite, ur, POC Negative Negative Leukocytes, ur, POC Negative Negative Lot Number [id number] Urine 11/26/2024 5:07 PM CDT Phyllsi Haddad NP POINT OF CARE TEST ORDERABLES F inal Result from Last 3 Months Insurance [facility] CHOICE PLUS Care Teams Well Flow Operator Relationship Specialty Start Date End Date Ana Cristina Hopkins DO [address] [place] [address] PCP - General Family Medicine 09/30/24
--- OUTSIDE RECORDS SUMMARY | 2024-11-26 17:39 | XMS_ITS | Encounter Summary ---
Author Organization [facility] Address [address] [place] [address] Care Team Providers Care Delivery Associate Name Role Phone Ana Cristina Hopkins DO Primary Care Provider [phone] Encounter Details Date Type Department Care Team (Late st Contact Info) Description 02/26/2021 [employer] Message Enc [facility] Medical Group Family Medicine - [place] [address] [facility], [address] [place] [phone] Ana Cristina Hopkins DO [address] [place], [place] [phone] RE: Question Social History Tobacco Use Types Packs/Day Years [...] 3, please move on to questions 3-9 2 11/11/2020 Comments No Sex and Gender Information Value Date Recorded Sex Assigned at Not on file Legal Sex Female 2:44 PM 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
--- OUTSIDE RECORDS SUMMARY | 2024-11-26 17:39 | XMS_ITS | Encounter Summary ---
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 Question Answer Date of Assessment Author Status Little interest or pleasure in doing things Not at all 08/17/2022 9:11 AM CDT Elizabeth Nash MA Act joaquin Feeling down, depressed, or hopeless Not at all 08/17/2022 9:11 AM CDT Elizabeth Nash MA Active Patient Health Questionnaire-2 Score 0 08/17/2022 9:11 AM CDT Elizabeth Nash MA Active documented as of this encounter Plan of Treatment Not on file documented as of this encounter Visit Diagnoses Not on filedocumented in this encounter Additional Health Concerns Assessment Noted Time PHQ-9 Depression Total Score: 0 08/25/19 22 3:30 PM CDT documented as of this encounter Care Teams Project Management It Specialist Relationship Specialty Start Date End Date Ana Cristina Hopkins DO [address] [place] [address] PCP - General FAMILY PRACTICE 07/15/20 documented as of this encounter
[2024-11-26 18:02] VITALS: BP 132/76; PULSE 88; RESP 16; TEMP 36.4; O2SAT 98
[2024-11-26 22:01] VITALS: BP 134/72; PULSE 74; RESP 14; O2SAT 99
--- NOTE | 2024-11-26 22:02 | PC.NURSE ---
pt to triage for blood work, pt states she would like to wait to access her port
[2024-11-27] VITALS (9 sets, daily range): BP systolic 116–158; BP diastolic 72–85; PULSE 63–93; RESP 9–19; TEMP 36.8; O2SAT 93–98
--- OUTSIDE RECORDS SUMMARY | 2024-11-27 01:01 | XMS_ITS | Encounter Summary ---
Author Organization [facility] Address [address] [place] [address] Care Team Providers Care Project Design Engineer Name Role Phone Ana Cristina Hopkins DO Primary Care Provider [phone] Reason for Visit * Reason Onset Date Comments Information 11/26/2024 Encounter Details Date Type Department Care Team (Late st Contact Info) Description 11/26/2024 Telephone [facility] Family Medicine - [place] [address] [place] [address], [address] [place] [phone] Ana Cristina Hopkins DO [address] [place] [address] Information Social History Tobacco Use [...] on file 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 Cb# [phone] [place] documented in this encounter Plan of Treatment Not on file documented as of this encounter Visit Diagnoses Not on filedocumented in this encounter Additional Health Concerns Assessment Noted Time PHQ-9 Depression Total Score: 4 09/26/19 25 11:16 AM CDT documented as of this encounter Care Teams Project Design Engineer Relationship Specialty Start Date End Date Ana Cristina Hopkins DO [address] [place] [address] PCP - General FAMILY PRACTICE 07/15/20 documented as of this encounter
--- OUTSIDE RECORDS SUMMARY | 2024-11-27 01:01 | XMS_ITS | Encounter Summary ---
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
--- OUTSIDE RECORDS SUMMARY | 2024-11-27 01:01 | XMS_ITS | Clinical Summary ---
Author Organization [facility] Address [address] [place] [address] Care Team Providers Care Border Police Name Role Phone Ana Cristina Hopkins DO Primary Care Provider [phone] Allergies Active Allergy Reactions Criticality Noted Date [...] 022 Assessment & Plan (04/03/2022 8:04 PM ENVIRONMENTAL SCIENCE TECHNICIAN): We discussed the risks, benefits and alternatives. [...] Ankylosing spondylitis, unsp ecified site of spine ([facility] HHS/HCC) 09/06/2021 Assessment & Plan (01/17/2022 8:06 [...] diet. Melanoma in situ of right breast ([facility] HHS/ C) 07/15/2020 Malignant melanoma of anal skin ([facility] ) 07/15/2020 Headache affecting lower half of face 07/15/2020 Chronic pain of left knee 07/15/2020 Other iron deficiency anemia 07/15/2020 Skin melanoma ([facility]) 07/15/2020 Torn meniscus Overview (04/03/2022): Diagnostic and operative arthroscopy left knee partial meniscectomy 02/15/2022 Assessment & Plan (04/03/2022 8:03 PM ENVIRONMENTAL SCIENCE TECHNICIAN): Gradually increase activities as tolerated. She is following up with her arthritis doctor for injections. Follow-up as needed. Resolved Problems Problem Noted Date Diagnosed Date Resolved Date Dyslipidemia 08/03/2020 03/06/2021 Encounters Date Type Department Care Team Description 11/26/2024 MyChart Message Enc [facility] Family Medicine - [place] [address], [address] ' [place] [address] Ana Cristina Hopkins, Bladder infection 11/26/2024 Telephone [facility] Family Medicine - [place] [address], [address] [place] [address] Ana Cristina Hopkins, Information 10/23/2024 MyChart Message Enc [facility] Family Medicine - [place] [address], [address] [place] [address] Ana Cristina Hopkins, DO Appointment 10/20/2024 MyChart Message Enc [facility] [address], [address] [place] [address] Ana Cristina Hopkins DO colonoscopy 09/29/2024 2:00 PM CDT - 09/29/2024 11:59 PM CDT Hospital Encounter [facility] [address] [address] Ana Cristina Hopkins DO Discharge Disposition: Home or Self Care (Routine Discharge) 09/29/2024 Results Follow-Up [facility] [address], [address] [place] [phone] Ana Cristina Hopkins DO MG SCREENING W LILIAN SHERLEY DIGI 09/29/2024 Travel 09/25/2024 10:40 AM CDT Office Visit [facility] [address], [address] [place] [phone] Ana Cristina Hopkins DO Physical (Pt here for annual physical. [facility]) 09/25/2024 Travel 09/17/2024 MyChart Message Enc [facility] [address] [facility] [address], [address] [place] [address] Ana Cristina Hopkins DO mammogram 09/15/2024 Scan [...] on file Legal Sex Female 2:44 PM ENVIRONMENTAL SCIENCE TECHNICIAN Gender Identity Not on file Sexual [...] Screening 09/29/2026 09/29/2024, 09/14/2022, 09/29/2020 PHQ-2 (Physician [place]) Completed 09/25/2024 Meningococcal B Vaccine Aged Out [...] 2:48 PM Narrative 09/29/2024 2:50 PM CDT [facility] [address] [place] [address] Examination: Screening bilateral mammogram Exam Date/Time: 09/29/2024 [...] change from the prior exam. Ana Cristina Hopkins DO MAMMO Final Result from Last 3 Months Insurance [facility] Care Teams Border Police Relationship Specialty Start Date End Date Ana Cristina Hopkins DO [address] [place] [address] PCP - General FAMILY PRACTICE 07/15/20
--- OUTSIDE RECORDS SUMMARY | 2024-11-27 01:01 | XMS_ITS | Encounter Summary ---
Author Organization [facility] Address [address] [place] [address] Care Team Providers Care Health And Fitness Instructor Name Role Phone Ana Cristina Hopkins DO Primary Care Provider [phone] Encounter Details Date Type Department Care Team (Late st Contact Info) Description 10/23/2024 [employer] Message Enc [facility] Family Medicine - [place] [address], [address] [place] [phone] Ana Cristina Hopkins DO [address] [place], [place] [phone] Appointment Social History Tobacco Use Types Packs/Day [...] on file Legal Sex Female 2:44 PM OBGYN HOSPITALIST PHYSICIAN Gender Identity Not on file Sexual Orientation Not on file documented as of this encounter Plan of Treatment Not on file documented as of this encounter Visit Diagnoses Not on filedocumented in this encounter Additional Health Concerns Assessment Noted Time PHQ-9 Depression Total Score: 4 09/26/19 25 11:16 AM CDT documented as of this encounter Care Teams Health And Fitness Instructor Relationship Specialty Start Date End Date Ana Cristina Hopkins DO [address] [place] [address] PCP - General FAMILY PRACTICE 07/15/20 documented as of this encounter
--- OUTSIDE RECORDS SUMMARY | 2024-11-27 01:01 | XMS_ITS | Encounter Summary ---
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
--- OUTSIDE RECORDS SUMMARY | 2024-11-27 01:01 | XMS_ITS | Encounter Summary ---
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 No / Unsure 06/26/2021 2:10 PM LIQUEFIED PETROLEUM GASFITTER documented as of this encounter Plan of Treatment Not on file documented as of this encounter Visit Diagnoses Not on filedocumented in this encounter Additional Health Concerns Assessment Noted Time PHQ-9 Depression Total Score: 15 021 8:57 AM LIQUEFIED PETROLEUM GASFITTER documented as of this encounter Care Teams Taxation Agent Relationship Specialty Start Date End Date Ana Cristina Hopkins DO [address] [place] [address] PCP - General FAMILY PRACTICE 07/15/20 documented as of this encounter
--- OUTSIDE RECORDS SUMMARY | 2024-11-27 01:01 | XMS_ITS | Patient Health Record ---
Author Organization [facility] Address [address] [address] Care Team Providers Care Best Second Jobs Name Role Phone Prerna Sotelo Unavailable [phone] Migration, Provider Unavailable Unavailable Allergies Allergen (clinical drug ingredient) Drug/Non Drug Allergy documented on EMR Reaction Allergy Type Onset Date Status morphine Morphine Unknown Drug Allergy Active Latex Latex Unknown Allergy Active Results Component Value Reference Range Notes DEXAMETHASONE Reviewed date:05/25/2024 08:44:11 PM Interpretation: Performing Lab:[facility],, [address] [place], [address] Shauna Burkett MD,PhD,DEVANTE Notes/Report: AN UPDATE OR CORRECTION HAS BEEN MADE TO NAME DEXAMETHASONE 91 Reference Ranges for Dexamethasone: Baseline: Less than 20 ng/dL 1 mg dexamethasone overnight: 180-550 ng/dL (8:00-10:00 AM) This test was developed and its analytical performance characteristics have been determined by [employer]. It has not been cleared or approved by FDA. This assay has been validated pursuant to the CLIA regulations and is used for clinical purposes. CORTISOL, TOTAL Reviewed date:05/24/2024 11:53:46 AM Interpretation: Performing Lab:[facility], [address] [place], [address] Jim Shen MD Notes/Report: AN UPDATE OR CORRECTION HAS BEEN MADE TO NAME Reason For Referral No Information Medications Medication SIG (Take, Route, Frequency, Duration) Notes Start Date End Date Status Celecoxib 200 MG 1 cap(s) orally once a day Active sulfaSALAzine 500 MG 2 tab(s) orally 2 times a day 1500 MG X2 DAILY Active Vitamin D (Ergocalciferol) 1.25 MG (972[address] UT) 1 cap(s) orally once a week 1.25 MG X2 DAILY Active Zoloft 100 MG 1 tab(s) orally once a day Active Tirzepatide 2.5 MG/0.5ML as directed Subcutaneous Active Loratadine 10 MG 1 tab(s) orally once a day Active Unithroid 50 MCG (0.05 MG) 1 TAB(S) ORALLY ONCE A DAY for 90 DAYS *Please review and pick correct strength-formulati on from [employer] options. If intended option is not shown, [...] review and pick correct strength-formulati on from [employer] options. If intended option is not shown, discontinue and re-order from Quick Search* 04/09/2024 Active Problems Problem Type SNOMED Code ICD Code Onset Dates Problem Status W/U Status Risk Notes Problem Vitamin D deficiency (31755942) Vitamin D deficiency, unspecified (E55.9) Active confirmed Problem Hypothyroidism (48466310) Hypothyroidism, unspecified (E03.9) Active confirmed Problem Obstructive sleep apnea syndrome (disorder) (63746201) Obstructive sleep apnea (adult) (pediatric) (G47.33) Active confirmed Problem Obesity (555952337) Obesity, unspecified (E66.9) Active confirmed Problem Polyarthritis (817881252) Polyarthritis, unspecified (M13.0) Active confirmed Problem Irregular menstruation (26411951) Irregular menstruation, unspecified (N92.6) Active confirmed Vital Signs Heart Rate 92 /min 06/29/2024 Blood pressure diastolic 76 mm Hg 06/29/2024 Height 63 in 06/29/2024 Blood pressure systolic 117 mm Hg 06/29/2024 Weight 269.0 lbs 06/29/2024 BMI 47.65 kg/m2 06/29/2024 Encounters Encounter Location Date Provider Diagnosis [facility] [address] [place] [address] 05/28/2024 Prerna Deepak Obesity, unspecified E66.9 ; Dietary counseling and surveillance Z71.3 ; Other fatigue R53.83 ; Encounter for screening for lipoid disorders Z13.220 and Polyarthritis, unspecified M13.0 [facility] [address] [place] [address] 06/29/2024 Prerna Sotelo Obesity, unspecified E66.9 ; Hypothyroidism, unspecified E03.9 ; Obstructive sleep apnea (adult) (pediatric) G47.33 and Dietary counseling and surveillance Z71.3 [facility] [address] [place] [address] 07/27/2024 Prerna Deepak [facility] [address] [place] [address] 04/11/2024 Provider Migration Hypothyroidism, unspecified E03.9 and Obesity, unspecified E66.9 [facility] [address] [place] [address] 04/09/2024 Prerna Sotelo Obesity, unspecified E66.9 ; [...] Mellitus- Patient is currently taking Tirzepatide from [facility].- A1C: 4.4- Plan: Caution patient about the [...] procedures, referring and communicating with other health child care giver, documenting clinical information in the electronic or [...] procedures, referring and communicating with other health child care giver, documenting clinical information in the electronic or [...] 2.5 mg tirzepatide syringes - lot number [id number] a signed consent form from the patient acknowledging potential side effects such as nausea and vomiting.Schedule a follow-up appointment in 4 weeks to monitor progress and adjust treatment as necessary. Suspected Tracy's SyndromePrevious testing indicated a cortisol level of 7 with an insufficient dexamethasone level.Plan to perform a 4mg dexamethasone suppression test to further evaluate for Ridgeway's syndrome. 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
--- OUTSIDE RECORDS SUMMARY | 2024-11-27 01:01 | XMS_ITS | Encounter Summary ---
Author Organization [facility] Address [address] [place] [address] Care Team Providers Care Bible Reader Name Role Phone Ana Cristina Hopkins DO Primary Care Provider [phone] Encounter Details Date Type Department Care Team (Late st Contact Info) Description 11/26/2024 [employer] Message Enc [facility] Family Medicine - [place] [address], [address] [place] [phone] Ana Cristina Hopkins DO [address] [place], [place] [phone] Bladder infection Social History Tobacco Use Types [...] on file Legal Sex Female 2:[address] TABLEMAN Gender Identity Not on file Sexual Orientation Not on file documented as of this encounter Plan of Treatment Not on file documented as of this encounter Visit Diagnoses Not on filedocumented in this encounter Additional Health Concerns Assessment Noted Time PHQ-9 Depression Total Score: 4 09/26/19 25 11:16 AM CDT documented as of this encounter Care Teams Bible Reader Relationship Specialty Start [place] [address] [place] [address] PCP - General FAMILY PRACTICE 07/15/20 documented as of this encounter
--- OUTSIDE RECORDS SUMMARY | 2024-11-27 01:01 | XMS_ITS | Clinical Summary ---
Author Organization [facility] Application Security Address [address] [place] [address] Care Team Providers Care Style Advisor Name Role Phone Ana Cristina Hopkins DO Primary Care Provider Source Comments [facility] Application Security,non-owned Affiliates and Associated Physician Practices is amultiple site organization consisting of ambulatory clinics and hospital sitesin [place], [place], [place] and [place]. This disclosure is being madepursuant to the Care Everywhere program and may not contain all information available regarding this patient. Last updated 18.[facility] Application Security Allergies Active Allergy Reactions Criticality Noted Date [...] Active vitamin D, ergocalciferol, (Drisdol) 1.25 MG (84699 UT) capsule Take 1 (one) capsule by [...] TIMES DAILY FOR PAIN CONTROL 3 Active Box Elder-3 Fatty Acids (fish oil) 1000 MG capsule Active Multiple Vitamin (MULTI-VITAMIN DAILY PO) Active VALERIAN ROOT PO Active guaiFENesin ER 12hr (Mucinex) 600 MG tablet Take 1 (one) tablet by mouth every 12 hours Active HYDROcodone-jackie taminophen (Kemmerer) 5-325 MG tabletIndicatio ns:Venosclerosi s Take 1 [...] this topic Medical Devices Implanted Type Area History Card Clerk Device Identifier Shelf Expiration Date Model / Serial / Lot Port Implinfn Powerport Isp Mri Argd Implanted:Qty: 1 on 08/10/2022 by Scooby Hinton MD at [facility] Right: Chest Bard Per[employer] 10/25/2023 [id number] / / [id number] Insurance [facility] Care Teams Style Advisor Relationship Specialty Start Date End Date Ana Cristina Hopkins DO [address] [place] [address] PCP - General Family Medicine 08/07/22
--- OUTSIDE RECORDS SUMMARY | 2024-11-27 01:02 | XMS_ITS | Encounter Summary ---
Author Organization [facility] Address [address] [place] [address] Care Team Providers Care Diet Kitchen Cook Name Role Phone Ana Cristina Hopkins DO Primary Care Provider [phone] Encounter Details Date Type Department Care Team (Late st Contact Info) Description 01/10/2022 MyoKardia Message [facility] Orthopedic & Sports Medicine - [address] [address] [place], [facility] Provider Dr. 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
--- OUTSIDE RECORDS SUMMARY | 2024-11-27 01:02 | XMS_ITS ---
Author Organization [facility] Address [address] [place] [address] Care Team Providers Care Mill Oiler Name Role Phone Deepak Prerna Myrtle [phone] REASON FOR VISIT eron Encounters Encounter Location Date Provider Diagnosis [facility] - Prerna Sotelo [address] [place] [address] 07/27/2024 Prerna Sotelo Plan Of Treatment No Information Progress Notes * Mirela DOUGLASDOB:1975 ( 49 yo F)Acc No.[id number]:07/27/2024 Progress Notes Patient: Mirela CAMARA Provider: Ashkan Sotelo MD :1975 A ge:49 Y S ex:Female Date:07/27/2024 Address:[address] [place], [place] [address] Subjective: * Chief Complaints: * 1 . Hm eron. * Medical History: Objective: * Vitals: Assessment: Plan: * Treatment: * Billing Information: * Visit Code: * Procedure Codes: * Electronic signature of Marlon Sotelo MD on 11/27/2024 at 01:02 AM CDT Sign off status: Pending * Provider: Ashkan Sotelo MD Date: 07/27/2024 Generated for Taryn sun/Desi/Markusitting on: 11/27/2024 01:02 AM CDT
--- OUTSIDE RECORDS SUMMARY | 2024-11-27 01:02 | XMS_ITS | Patient Health Record ---
Author Organization DARYL WOLFE MD , [facility] [address] Address [address] [place], [place] [address] Care Team Providers Care Composition Mixer Name Role Phone Holly Oviedo Primary Care Provider Unavailab DARYL Gregorio Unavailable [phone] Kerry Corrales M.D. Unavailable Unavailable Allergies Allergen [...] Status Risk Notes Problem Chronic pain syndrome (375005907) Chronic pain syndrome (G89.4) Active confirmed Problem Fibromyalgia (587093082) Fibromyalgia (M79.7) Active confirmed Problem Localized osteoarthrosis (41753885) Localized osteoarthritis of both knees (M17.0) Active confirmed Problem Hypertension (28191741) Hypertension (I10) Active confirmed Problem Trochanteric bursitis of right hip (075678785943327) Trochanteric bursitis of right hip (M70.61) Active confirmed Problem Trochanteric bursitis of left hip (935049853864694) Trochanteric bursitis of left hip (M70.62) Active [...] Insured Coverage Start Date Coverage End Date [facility] [id number] [place] [address] [id number] Timothy Valdivia Spouse - patient is the spouse of the insured Medical (General) History Medical History History ICD Code fibromyalgia obesity right knee arthritis and swelling restless leg syndrome Surgical History Surgery Date(Month/Year) Knee surgery right hand surgery due to work accident. partial hysterectomy heart surgery, ablation
--- OUTSIDE RECORDS SUMMARY | 2024-11-27 01:02 | XMS_ITS | Encounter Summary ---
Author Organization [facility] Address [address] [place] [address] Care Team Providers Care Auto Air Conditioning Mechanic Name Role Phone Ana Cristina Hopkins Primary Care Provider [phone] Encounter Details Date Type Department Care Team (Late st Contact Info) Description 08/04/2021 Apreso Classroom Message Enc [facility] Medical Group Orthopedic & Sports Medicine - [place] [address] [place] [address] Valdo Melgoza MD [address] [place] [address] Hip Pain Social History Tobacco Use Types [...] on file Legal Sex Female 2:44 PM CHANGER FIXER Gender Identity Not on file Sexual Orientation Not on file COVID-19 Exposure Response Date Recorded In the last 10 days, have yo u been in contact with someone who was confirmed or suspected to have Coronavirus/COVID-19? No / Unsure 08/02/2021 1:34 PM CHANGER FIXER documented as of this encounter Plan of Treatment Not on file documented as of this encounter Visit Diagnoses Not on filedocumented in this encounter Additional Health Concerns Assessment Noted Time PHQ-9 Depression Total Score: 9 08/03/19 22 2:12 PM CHANGER FIXER documented as of this encounter Care Teams Auto Air Conditioning Mechanic Relationship Specialty Start [place] [address] [place] [address] PCP - General FAMILY PRACTICE 07/15/20 documented as of this encounter
--- OUTSIDE RECORDS SUMMARY | 2024-11-27 01:02 | XMS_ITS | Encounter Summary ---
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
--- OUTSIDE RECORDS SUMMARY | 2024-11-27 01:02 | XMS_ITS | Patient Health Record ---
Author Organization [facility] Address [address] [facility] [address] [place] [address] Care Team Providers Care Sports Bookmaker Name Role Phone Jose Ramon Bruce MD Primary Care Provider Unavail enedelia Barton MD, Joshua Unavailable [phone] Allergies Allergen (clinical drug ingredient) Drug/Non Drug [...] Status W/U Status Risk Notes Problem Diarrhea (74074723) Diarrhea (787.91) Active confirmed lIkely IBS Problem Irritable bowel syndrome (76590188) Irritable bowel syndrome (564.1) Active confirmed Problem Heartburn (61412270) HEARTBURN (787.1) Active confirmed Well controlled with PPI Problem Nausea and vomiting (52299891) Nausea & vomiting (R11.2) Active confirmed Problem Obesity (247210776) Obesity (E66.9) Active confirmed patient reports been active and eating minimally (today has not eaten at all at 3 PM). 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 Suspect IBS related. Previous GB w/u negative Problem CT of abdomen abnormal (0540418944423 9107) Abnormal CT of the abdomen (R93.5) Active confirmed Problem Weight loss (014829839) Weight loss (R63.4) Active confirmed Problem Acute diarrhea (371901614) Acute diarrhea (R19.7) Active confirmed Problem Irritable bowel syndrome with diarrhea (092386580) Irritable bowel syndrome with diarrhea (K58.0) Active confirmed Problem Generalized abdominal pain (359287730) Generalized abdominal pain (R10.84) Active confirmed Problem Abdominal pain (34740639) Diffuse abdominal pain (R10.9) Active confirmed Plan Of Treatment No Information Insurance Providers Payer Name Payer Address Payer Phone Subscriber Number Group Number Insured Name Patient Relationship to Insured Coverage Start Date Coverage End Date [facility] (Open Access HMO/POS) [address] [place] [address] [phone] [id number] SHREE GARIBAY Self - patient is the [...]
--- OUTSIDE RECORDS SUMMARY | 2024-11-27 01:02 | XMS_ITS | Referral Summary ---
Author Organization [address] [address] Care Team Providers Care Front Desk Admin Name Role Phone Ana Cristina Hopkins DO Primary Care Provider [phone] Encounters Date Type Department Care Team Description 11/26/2024 5:07 PM CDT Hospital Encounter [address] [address] Urinary frequency 11/26/2024 5:00 PM CDT Office Visit [facility] Convenient Care at [address] [address] Phyllis Haddad NP Urinary frequency (Primary Dx); Abdominal pain; Right upper quadrant abdominal tenderness without rebound tenderness; Right lower quadrant abdominal pain 09/30/2024 Telephone [facility] Gastroenterology at [address] [place] [address] Dhara Katz from Last 3 [...] on file Legal Sex Female 3:17 PM RHIA Gender Identity Not on file Sexual Orientation [...] st Contact Info) Description 06/02/2025 9:30 AM RHIA Hospital Encounter [address] [address] Berenice García MD [address] [facility] [address] [place] [address] 06/02/2025 9:30 AM RHIA - 06/02/2025 10:00 AM RHIA Surgery [address] [address] Berenice García MD [address] [facility] [address] [place] [address] COLONOSCOPY Scheduled Procedures Name Priority Associated Diagnoses Date/Ti me COLONOSCOPY History of colonic polyps 06/02/2025 9:30 AM RHIA Procedures Procedure Name Priority Date/Time Associated Diagnosis Comments POCT URINALYSIS DIPSTICK Routine 11/26/2024 5:07 PM CDT Urinary frequency from Last 3 Months Results * POCT urinalysis dipstick (11/26/2024 5:07 PM CDT) Color, Urine, POC Light Yellow Clarity, ur, POC Clear Clear Glucose, ur, POC Negative Negative Bilirubin, ur, POC Negative Negative Ketones, ur, POC Negative Negative Specific [place], POC 1.030 1.003 - 1.030 Blood, ur, POC Negative Negative pH, ur, POC 7.0 5.0 - 8.0 Protein, ur, POC Negative Negative Urobilinogen, urine, POC 0.2 0.2 - 1.0 mg/dL Nitrite, ur, POC Negative Negative Leukocytes, ur, POC Negative Negative Lot Number [id number] Urine 11/26/2024 5:07 PM CDT Phyllis Haddad NP POINT OF CARE TEST ORDERABLES F inal Result from Last 3 Months Insurance [facility] CHOICE PLUS Care Teams Front Desk Admin Relationship Specialty Start Date End Date Ana Cristina Hopkins DO [address] [place] [address] PCP - General Family Medicine 09/30/24
--- OUTSIDE RECORDS SUMMARY | 2024-11-27 01:02 | XMS_ITS | Clinical Summary ---
Author Organization [address] Address [address] [place] [address] Care Team Providers Care Cuff Setter Lockstitch Name Role Phone Ana Cristina Hopkins DO Primary Care Provider [phone] Allergies Active Allergy Reactions Criticality Noted Date [...] Description 11/26/2024 5:07 PM CDT Hospital Encounter [address] [address] Urinary frequency 11/26/2024 5:00 PM CDT Office Visit [facility] Convenient Care at [address] [address] Phyllis Haddad NP Urinary frequency (Primary Dx); Abdominal pain; Right upper quadrant abdominal tenderness without rebound tenderness; Right lower quadrant abdominal pain 09/30/2024 Telephone [facility] Medical Group Gastroenterology at [address] [place] [address] Dhara Katz from Last 3 [...] on file Legal Sex Female 3:17 PM GENERAL MAINTENANCE TECHNICIAN Gender Identity Not on file Sexual [...] st Contact Info) Description 06/02/2025 9:30 AM GENERAL MAINTENANCE TECHNICIAN Hospital Encounter [address] [address] Berenice García MD [address] [facility] [address] [place] [address] 06/02/2025 9:30 AM GENERAL MAINTENANCE TECHNICIAN - 06/02/2025 10:00 AM GENERAL MAINTENANCE TECHNICIAN Surgery [address] [address] Berenice García MD [address] [facility] [address] [place] [address] COLONOSCOPY Scheduled Procedures Name Priority Associated Diagnoses Date/Ti me COLONOSCOPY History of colonic polyps 06/02/2025 9:30 AM GENERAL MAINTENANCE TECHNICIAN Health Maintenance Due Date Last Done Comments Colon Cancer Screening-Colonoscopy 1975 Depression Screening 1975 Hepatitis C Screening 1975 DTaP/Tdap/Td Vaccine (1 - Tdap) 1987 Hepatitis B Screening 1994 Regular Well Visit/Exam 18-64 1994 Zoster Vaccine (1 of 2) 1995 Pneumococcal vaccine <65 (2 of 2 - PCV) 06/22/2022 06/22/2021 Covid-19 Vaccine (2023-2 5 season) 2024 02/15/2023, 10/04/2022, 02/01/2022, Additional history exists Influenza Vaccine (#1) 2025 3, 02/01/2022, 02/20/2021, Additional history exists Breast Cancer [...] Negative Ketones, ur, POC Negative Negative Specific [place], POC 1.030 1.003 - 1.030 Blood, ur, POC Negative Negative pH, ur, POC 7.0 5.0 - 8.0 Protein, ur, POC Negative Negative Urobilinogen, urine, POC 0.2 0.2 - 1.0 mg/dL Nitrite, ur, POC Negative Negative Leukocytes, ur, POC Negative Negative Lot Number [id number] Urine 11/26/2024 5:07 PM CDT Phyllis Haddad NP POINT OF CARE TEST ORDERABLES F inal Result from Last 3 Months Insurance [facility] CHOICE PLUS Care Teams Cuff Setter Lockstitch Relationship Specialty Start Date End Date Ana Cristina Hopkins DO [address] [place] [address] PCP - General Family Medicine 09/30/24
--- OUTSIDE RECORDS SUMMARY | 2024-11-27 01:02 | XMS_ITS | Encounter Summary ---
Author Organization [facility] Address [address] [place] [address] Care Team Providers Care Systems Testing Laboratory Technician Name Role Phone Ana Cristina Vale DO Primary Care Provider Reason for Visit * Reason Onset Date Comments Information 07/28/2020 Encounter Details Date Type Department Care Team (Late st Contact Info) Description 07/28/2020 [email or web address] Message Enc [facility] Medical Group Family Medicine [facility] [address] [place] [address], [address] [place] [phone] Ana Cristina Vale DO [address] [place], [place] [phone] RE: Medication Questions Social History Tobacco Use Types Packs/Day Years Used Date Smoking Tobacco: Never Smokeless Tobacco: Never Alcohol Use Standard Drinks/Week Comments Yes 0 (1 standard drink = 0.6 oz pur e alcohol) PHQ-2 Answer Date Recorded PHQ-2 Score 0 07/15/2020 Comments Unknown Sex and Gender Information Value Date Recorded Sex Assigned at Not on file Legal Sex Female 2:44 PM SINGER BACK TENDER Gender Identity Not on file Sexual Orientation Not on file COVID-19 Exposure Response Date Recorded In the last month, have you been in contact with someone who was confirmed or suspected to have Coronavirus / COVID-19? No / Unsure 07/15/2020 2:07 PM SINGER BACK TENDER documented as of this encounter Progress Notes * Mita Freedman - 08/01/2020 7:40 AM CST Patient called back to schedule f/u. Last office visit at this office: Last visit with ANA CRISTINA VALE in FAMILY PRACTICE was on: 07/15/2020 in [place] Future appointment scheduled: Future Appointments Date Time Provider Department Center 08/01/2020 8:45 AM [facility] 08/02/2020 1:40 PM Ana Cristina Vale DO [id number] MG GRN MNT R 08/03/2020 9:30 AM Lupe Blackwell, PT [facility] 08/03/2020 9:30 AM Jerry Sifuentes MD EDWPCCL EDWDSVL PCCL 08/04/2020 10:00 AM Valdo Melgoza MD MGORTHOF [facility] BACK TENDER documented in this encounter Plan of Treatment Not on file documented as of this encounter Visit Diagnoses Not on filedocumented in this encounter Care Teams Systems Testing Laboratory Technician Relationship Specialty Start Date End Date Ana Cristina Vale DO [address] [place] [address] PCP - General FAMILY PRACTICE 07/15/20 documented as of this encounter
--- OUTSIDE RECORDS SUMMARY | 2024-11-27 01:02 | XMS_ITS | Encounter Summary ---
Author Organization [facility] Address [address] [place] [address] Care Team Providers Care Diesel Locomotive Firer/Fireman Name Role Phone Ana Cristina Hopkins DO Primary Care Provider Encounter Details Date Type Department Care Team (Late st Contact Info) Description 08/04/2021 Intrakrt Message Enc [facility] Medical Group Family Medicine - [place] [address] [facility], [address] [place] [phone] Ana Cristina Hopkins DO [address] [place], [place] [address] Paperwork Social History Tobacco Use Types Packs/Day [...] on file Legal Sex Female 2:44 PM FINANCIAL PROCESSING CLERK Gender Identity Not on file Sexual Orientation Not on file COVID-19 Exposure Response Date Recorded In the last 10 days, have yo u been in contact with someone who was confirmed or suspected to have Coronavirus/COVID-19? No / Unsure 08/02/2021 1:34 PM FINANCIAL PROCESSING CLERK documented as of this encounter Plan of Treatment Not on file documented as of this encounter Visit Diagnoses Not on filedocumented in this encounter Additional Health Concerns Assessment Noted Time PHQ-9 Depression Total Score: 9 08/03/19 22 2:12 PM FINANCIAL PROCESSING CLERK documented as of this encounter Care Teams Diesel Locomotive Firer/Fireman Relationship Specialty Start Date End Date Ana Cristina Hopkins DO [address] [place] [address] PCP - General FAMILY PRACTICE 07/15/20 documented as of this encounter
--- OUTSIDE RECORDS SUMMARY | 2024-11-27 01:02 | XMS_ITS | Patient Health Record ---
Author Organization [facility] Address [address] [facility] [address] [place] [address] Care Team Providers Care Payroll Master Name Role Phone Geovanny Fong [phone] Reason For Referral No Information Medications Medication [...] Insured Coverage Start Date Coverage End Date [address] [place] [address] [id number] Mirela Valdivia Self - patient is the insured Medical (General) History Surgical History Surgery Date(Month/Year) , Date of Procedure: 2000 ; 2014-09-27 Colonoscopy; 2014-09-27 Heart Surgery: ablation, Date of Procedu re: 02/2012; 2014-09-14 Other: hand surgery; 2014-09-27
--- OUTSIDE RECORDS SUMMARY | 2024-11-27 01:02 | XMS_ITS | Encounter Summary ---
Author Organization 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
--- OUTSIDE RECORDS SUMMARY | 2024-11-27 01:02 | XMS_ITS | Encounter Summary ---
Author Organization [facility] Address [address] [place] [address] Care Team Providers Care Mortician Supplies Sales Representative Name Role Phone Ana Cristina Hopkins DO Primary Care Provider [phone] Encounter Details Date Type Department Care Team (Late st Contact Info) Description 07/31/2021 MyCMipagart Message Enc [facility] Medical Group Family Medicine - [place] [employer] [address] [facility], [address] [place] [phone] Ana Cristina Hopkins DO [address] [place], [place] [phone] Headache meds Social History Tobacco Use Types [...] on file Legal Sex Female 2:44 PM VETERINARY POULTRY INSPECTOR Gender Identity Not on file Sexual Orientation Not on file COVID-19 Exposure Response Date Recorded In the last 10 days, have yo u been in contact with someone who was confirmed or suspected to have Coronavirus/COVID-19? No / Unsure 08/02/2021 1:34 PM VETERINARY POULTRY INSPECTOR documented as of this encounter Progress Notes * Ana Cristina Hopkins DO - 07/31/2021 4:17 PM CST If you are on topamax 25mg orally stop the medication and make an appt . We will need to check blood pressure and can also start on a different medication RINARY POULTRY INSPECTOR * Ana Cristina Hopkins DO - 07/31/2021 4:16 PM CSTFrom: Mirela Valdivia To: Dr. Ana Cristina Hopkins Sent: 07/31/2021 3:23 PM VETERINARY POULTRY INSPECTOR Subject: Headache meds Doc, Went to eye [...] the road signs in front of me. RINARY POULTRY INSPECTOR documented in this encounter Plan of Treatment Not on file documented as of this encounter Visit Diagnoses Not on filedocumented in this encounter Additional Health Concerns Assessment Noted Time PHQ-9 Depression Total Score: 15 04/07/ 021 8:57 AM VETERINARY POULTRY INSPECTOR documented as of this encounter Care Teams Mortician Supplies Sales Representative Relationship Specialty Start Date End Date Ana Cristina Hopkins DO [address] [place] [address] PCP - General FAMILY PRACTICE 07/15/20 documented as of this encounter
--- OUTSIDE RECORDS SUMMARY | 2024-11-27 01:02 | XMS_ITS | Encounter Summary ---
Author Organization [facility] Address [address] [place] [address] Care Team Providers Care Mail Handler Equipment Operator Name Role Phone Ana Cristina Hopkins DO Primary Care Provider [phone] Encounter Details Date Type Department Care Team (Late st Contact Info) Description 12/19/2021 Yee Care Message Enc [facility] Family Medicine - [place] [address], [address] [place] [phone] Ana Cristina Hopkins DO [address] [place], [place] [id number] [employer] Social History Tobacco Use Types Packs/Day [...] file Legal Sex Female 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
--- OUTSIDE RECORDS SUMMARY | 2024-11-27 01:02 | XMS_ITS | Encounter Summary ---
Author Organization [facility] Address [address] [place] [address] Care Team Providers Care Senior Architect Name Role Phone Ana Cristina Hopkins DO Primary Care Provider [phone] Encounter Details Date Type Department Care Team (Late st Contact Info) Description 09/22/2020 [employer] Message Enc [facility] Family Medicine - [place] [address], [address] [place] [phone] Ana Cristina Hopkins DO [address] [place], [place] [id number] Medication Questions Social History Tobacco Use Types [...] on file Legal 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
--- OUTSIDE RECORDS SUMMARY | 2024-11-27 01:02 | XMS_ITS | Encounter Summary ---
Author Organization [facility] Address [address] [place] [address] Care Team Providers Care District Or District Office Director Name Role Phone Ana Cristina Hopkins DO Primary Care Provider [phone] Reason for Visit * Reason Comments Urinary Symptom Symptoms started on Saturday, Patient states that sharp pain in stomach to vagina Encounter Details Date Type Department Care Team (Late st Contact Info) Description 11/26/2024 5:00 PM CDT Office Visit [facility] at [address] [phone] Phyllis Haddad NP [address] [place] [address] [address] [place], [place] [id number] Urinary frequency (Primary Dx); Abdominal pain; Right upper quadrant abdominal tenderness without rebound tenderness; Right lower quadrant abdominal pain Social History Tobacco Use Types Packs/Day Years Used Date Smoking Tobacco: Never Assessed Comments No Sex and Gender Information Value Date Recorded Sex Assigned at Not on file Legal Sex Female 3:17 PM ROLL OFF DRIVER Gender Identity Not on file Sexual [...] st Contact Info) Description 06/02/2025 9:30 AM ROLL OFF DRIVER Hospital Encounter [facility] [address] [place], [place] [address]Berenice Null MD [address] [facility] [place] [address] 06/02/2025 9:30 AM ROLL OFF DRIVER - 06/02/2025 10:00 AM ROLL OFF DRIVER Surgery [address] [id number] Null MD [address] [place] [address] COLONOSCOPY Pending Results Name Type Priority Associated Diagnoses Date /Time Urine culture Urine, clean voided Microbiology Routine Urinary frequency 11/26/2024 5:07 PM CDT Scheduled Orders Name Type Priority Associated Diagnoses Orde r Schedule Urine culture Urine, clean voided Microbiology Routine Urinary frequency Expected: 11/26/2024, Expires: 11/26/2025 Scheduled Procedures Name Priority Associated Diagnoses Date/Ti me COLONOSCOPY History of colonic polyps 06/02/2025 9:30 AM ROLL OFF DRIVER documented as of this encounter Procedures Procedure Name Priority Date/Time Associated Diagnosis Comments POCT URINALYSIS DIPSTICK Routine 11/26/2024 5:07 PM CDT Urinary frequency documented in this encounter Results * POCT urinalysis dipstick (11/26/2024 5:07 PM CDT) Color, Urine, POC Light Yellow Clarity, ur, POC Clear Clear Glucose, ur, POC Negative Negative Bilirubin, ur, POC Negative Negative Ketones, ur, POC Negative Negative Specific [place], POC 1.030 1.003 - 1.030 Blood, ur, POC Negative Negative pH, ur, POC 7.0 5.0 - 8.0 Protein, ur, POC Negative Negative Urobilinogen, urine, POC 0.2 0.2 - 1.0 mg/dL Nitrite, ur, POC Negative Negative Leukocytes, ur, POC Negative Negative Lot Number [id number] Urine 11/26/2024 5:07 PM CDT Phyllis Haddad [...] 09/25/2024 added in this encounter Care Teams District Or District Office Director Relationship Specialty Start Date End Date Ana Cristina Hopkins DO [address] [place] [id number] PCP - General Family Medicine 09/30/24 documented as of this encounter
--- OUTSIDE RECORDS SUMMARY | 2024-11-27 01:03 | XMS_ITS | Continuity of Care Document ---
Author Organization [facility] Address [address] [place] [address] Phone Care Team Providers Care Window Framer Name Role Phone Ray Covarrubias MD Unavailable [...] times every day 75 MG - Active Fayette 7.5 mg-325 mg tablet take 1 tablet [...] Complete 4 Views (AP Lateral, Tunnel And [place]) Depo Medrol 40 Mg Major Joint Inject: [...] Diagnoses Date Provider Providers Copied on Encounter [facility], [address] [place], [address], [place] tel: [phone] [facility] IM No Information 0 Marci Bell. [address] [facility] , [address] [place] [address], [id number], [place]. tel:[phone] [facility], [address] [place] [address], [address], [place] tel: [phone] [facility] IM No Information 0 Marci Bell. [address] [facility] , [address] [place], [place], [id number], [place]. tel:[phone] OV Est Pt, Expanded Visit [facility], [address] [place], [address], [place] tel:[phone] [facility] ARIN POP bilateral knee pain (chief complaint) Pain in left kneePain in right kneeBilatera l primary osteoarthrit is of knee 0 Loida Frances. [address] [facility] , [place] [address], [place], [place], [id number], [place]. tel:[phone] Referring Provider: Ray Covarrubias, [address] [place], [address] . tel:[phone] [facility], [address], [place], [address], [place] tel:[phone] [facility] ARIN POP Left knee pain, unspecified chronicityCh ronic pain of right knee 0 Loida Frances. [address], [address], [place], [place], [id number], [place]. tel:[phone] [facility], [address], [place], [address], [place] tel:[phone] [facility] IM No Information Louie Kerry. [address], [address] [facility], [place], [address], [place]. tel:[phone] [facility], [address], [place], [address], [place] tel: [phone] [facility] IM No Information 9 Marci Bell. [address], [address] [facility], [place], [place], [id number], [place]. tel:[phone] OV Est Pt, Detailed Visit [facility], [address] , [place], [address], [place] tel:[phone] [facility] Rheumatology F/U Fibromyalgia (chief complaint) Fibromyalgia Chronic pain syndromePrim brooke osteoarthrit is of right kneeChronic fatigue syndrome 9 Louie Kerry. [address], [address] [facility], [place], [address], [place]. tel:[phone] Referring Provider: Ray Covarrubias, [address] [facility], [place], [address] . tel:[phone] OV Est Pt, Detailed Visit [facility], [address], [place], [address], [place] [phone] [facility] POP Rheumatology F/U osteoarthriti s (chief complaint) Fibromyalgia Chronic pain syndrome 9 Louie Kerry. [address], [address] [facility], [place], [address], [place]. tel:[phone] Referring Provider: Ray Covarrubias, [address] [facility] [address] [facility], [place], [address] . tel:[phone] [facility], [address] [place] [address], [address], [place] tel: [phone] [facility] ARIN DNU post-op right (chief complaint) Other tear of medial meniscus, current injury, right knee, subsequent encounter 8 Loida Frances. [address], [address], [place], [place], [id number], [place]. tel:[phone] Referring Provider: Ray Covarrubias, [address] [place] [address] [address] [facility], [place], [address] . tel:[phone] Adult 40-64 Yrs [facility], [address] [place] [address], [address], [place] tel: [phone] [facility] IM Preventive exam (chief complaint) Encntr for general adult medical exam w/o abnormal findingsFibr omyalgiaObes ity (BMI 30-39.9)PSVT (paroxysmal supraventric ular tachycardia) Status post total right knee replacement 8 Marci Bell. [address] [facility], [address] [facility], [place], [place], [id number], [place]. tel:[phone] Referring Provider: Ray Covarrubias, [address] [place] [address] [address] [place], [address] . tel:[phone] [facility], [address] [place] [address], [address], [place] tel: [phone] [facility] Other tear of medial meniscus, current injury, right knee, subsequent encounterCho ndromalacia patellae of right knee 8 Loida Frances. [address], [address], [place], [place], [id number], [place]. tel:[phone] Referring Provider: Ray Covarrubias, [address] [facility] 4[address], [place], [address] . tel:[phone] [facility], [address] [facility], [place], [address], [place] tel:[phone] [facility] Orth[facility]ics No Information 8 [place] Juan Daniel. [address] [facility], [address], [place], [place], [id number], [place]. tel:[phone] OV Est Pt, Expanded Visit [facility], [address] [facility], [place], [address], [place] tel:[phone] [facility] Care cough/URI (chief complaint) Acute non-recurren t maxillary sinusitis 8 [address] garzon. [address] [place] [address], 3rd Floor, [place], [place], [id number], [place]. tel:[phone] Referring Provider: Ray Covarrubias, [address] [place] [address] 4th Floor, [place], [address] . tel:[phone] [facility], [address] [place] [address], [place], [address], [place] [phone] [facility] Card No Information 8 Nighat Munoz. [address] [facility], 4th Floor, [place], [address], [place]. tel:[phone] Referring Provider: Alexander iDsla, [address] [place] [address] 4th Floor, [place], [address]. tel:[phone] [facility], [address] [place] [address], [place], [address], [place] tel:[phone] [facility] PT DNU knee (chief complaint) Unilateral primary osteoarthrit is, right kneeChronic pain of right kneeDifficul ty in walking, not elsewhere classifiedFi bromyalgiaOb esity (BMI 30-39.9) 8 Lopez Reid. [address] [facility] [address], [place], [place], [id number], [place]. tel:[phone] [facility], [address] [place] [address] Rd, [place], [address], [place] tel:[phone] [facility] Card Supraventric ular tachycardiaP aroxysmal tachycardia, unspecified Nighat Munoz. [address], 4th Floor, [place], [address], [place]. tel:[phone] Referring Provider: Alexander Disla, [address] [facility] 4th Floor, [place], [address]. tel:[phone] OV New Pt, [facility], [address] [facility], [place], [address], [place] tel:[phone] [facility] Card New patient consult (chief complaint)gen eral (chief complaint) Tachycardia, paroxysmalPa roxysmal SVT (supraventri cular tachycardia) Obesity (BMI 30-39.9)Unil ateral primary osteoarthrit is, right kneeFibromya lgia Nighat Munoz. [address] [facility], 4th Floor, [place], [address], [place]. tel:[phone] Referring Provider: Juan Daniel Mariscal, [address] [place] [address] [address], [place], [address] . tel:[phone] OV Est Pt, Detailed Visit [facility], [address] [place] [address], [place], [address], [place] tel:[phone] [facility] ARIN DNU right knee pain (chief complaint) Unilateral primary osteoarthrit is, right kneeSVT (supraventri cular tachycardia) 8 Loida Frances. [address] [facility], [address], [place], [place], [id number], [place]. tel:[phone] Referring Provider: Ray Covarrubias, [address] [facility] 4th Floor, [place], [address] . tel:[phone] OV Est Pt, Expanded Visit [facility], [address] [facility], [place], [address], [place] [phone] [facility] Rheumatology F/U osteoarthriti s (chief complaint) Unilateral primary osteoarthrit is, right kneeFibromya lgia 8 Antoni Kerry. [address] [place] [address], [address] [facility], [place], [address], [place]. tel:[phone] Referring Provider: Ray Covarrubias, [address] [place] [address] 4th Floor, [place], [address] . tel:[phone] [facility], [address] [place] [address], [place], [facility], tel:[phone] [facility] Pharmacy Services No Information 8 Marci Bell. [address] [place] [address], [address] [facility], [place], [place], [id number], [place]. tel:[phone] OV Est Pt, Expanded Visit [facility], [address] [place] [address], [facility], tel:[phone] [facility] IM cough (chief complaint)fib romyalgia (chief complaint) CoughSore throat 8 Marci Bell. [address] [place] [address], [address] [facility], [place], [place], [id number], [place]. tel:[phone] Referring Provider: Ray Covarrubias, [address] [place] [address] [address] [facility], [place], [address] . tel:[phone] [facility], [address] [place] [address], [facility], tel:[phone] [facility] PT DNU knee (chief complaint) Chronic pain of right kneeDifficul ty in walking, not elsewhere classifiedUn ilateral primary osteoarthrit is, right kneeFibromya lgia 8 Shantal Martinez. [address] [facility] [address], [place], [facility], [place]. tel:[phone] Referring Provider: Juan Daniel Mariscal, [address] [place] [address] [address], [place], [address] . tel:[phone] [facility], [address] [place] [address], [address], [place] tel:[phone] [facility] PT DNU knee (chief complaint) Chronic pain of right kneeDifficul ty in walking, not elsewhere classifiedUn ilateral primary osteoarthrit is, right kneeFibromya lgia 7 8 Lopez Hurtadoen. [address] [facility] [address], [address], [place], [place], [id number], [place]. tel:[phone] Referring Provider: Juan Daniel Mariscal, [address] [place] [address] [address], [place], [address] . tel:[phone] [facility], [address] [place] [address], [place], [address], [place] tel:[phone] [facility] PT DNU knee (chief complaint) Chronic pain of right kneeUnilater al primary osteoarthrit is, right kneeDifficul ty in walking, not elsewhere classifiedOt her chronic pain 8 Murguia Juan. [address] [place] [address] [address], [place], [address], [place]. tel:[phone] Referring Provider: Juan Daniel Mariscal, [address] [place] [address] [address], [place], [address] . tel:[phone] [facility], [address] [place] [address], [place], [address], [place] tel:[phone] [facility] PT DNU knee (chief complaint)gen eral orthopedic (chief complaint) Primary osteoarthrit is of right kneeChronic pain of right kneeOther chronic painDifficul ty in walking, not elsewhere classifiedFi bromyalgia 8 Lopez Reid. [address] [facility] [address], [place], [place], [id number], [place]. tel:[phone] Referring Provider: Juan Daniel Mariscal, [address] [place] [address] [address], [place], [address] . tel:[phone] OV Est Pt, Detailed Visit [facility], [address] [place] [address] , [place], [address], [place] tel:[phone] [facility] POP Rheumatology F/U Osteoarthriti s (chief complaint) Fibromyalgia Primary osteoarthrit is of right knee 8 Antoni Payne. [address], 4th Floor, [place], [address], [place]. tel:[phone] Referring Provider: Ray Covarrubias, [address] [facility], [place], [address] . tel:[phone] OV Est Pt, Detailed Visit [facility], [address] [facility], [place], [address], [place] tel:[phone] [facility] IM knees hurt (chief complaint) Fibromyalgia Irritable bowel syndrome with diarrheaObes ity, unspecified classificati on, unspecified obesity type, unspecified whether serious comorbidity present 8 Marci Bell. [address] [facility], [address] [facility], [place], [place], [id number], [place]. tel:[phone] Referring Provider: Ray Covarrubias, [address] [facility] [address] [facility], [place], [address] . tel:[phone] [facility], [address] [facility], [place], [address], [place] tel:[phone] [facility] IM No Information 8 Marci Bell. [address] [facility], [address] [facility], [place], [place], [id number], [place]. tel:[phone] Referring Provider: aTd Lackey, [address] [facility] [address], [place], [address]. tel:[phone] OV Est Pt, Expanded Visit [facility], [address] [facility], [place], [address], [place] [phone] [facility] ARIN DNU right knee pain (chief complaint) Primary osteoarthrit is of right knee 8 Loida Frances. [address] [facility], [address], [place], [place], [id number], [place]. tel:[phone] Referring Provider: Kerry Louie, [address] 4th Floor, [place], [address]. tel:[phone] [facility], [address] [facility], [place], [address], [place] tel: [phone] [facility] Rheumatology Primary osteoarthrit is of right knee 8 Antoni Payne. [address], [address] [facility], [place], [address], [place]. tel:[phone] OV Est Pt, Expanded Visit [facility], [address] [facility], [place], [address], [place] tel: [phone] [facility] Rheumatology F/U Pain In R Leg (chief complaint) Primary osteoarthrit is of right kneeSwelling of right knee joint 8 Antoni Payne. [address] [place], [address], [place]. tel:[phone] Referring Provider: Ray Covarrubias, [facility] [address] [facility], [place], [address] . tel:[phone] OV New Pt, [facility], [address] [place] [address], [place], [address], [place] tel: [phone] [facility] Rheumatology Consult Pain of Right Lower Extremity (chief complaint) Pain in right legSwelling of right knee jointPrimary osteoarthrit is of right knee 8 Antoni Payne. [address] , [address] [place] [address], [place], [address], [place]. tel:[phone] Referring Provider: Ray Covarrubias, [address] 4th Floor, [place], [address] . tel:[phone] OV Est Pt, Expanded Visit [facility], [address] [place] [address], [address], [place] tel: [phone] [facility] IM right leg pain (chief complaint) Pain of right lower extremityObe sity, unspecified classificati on, unspecified obesity type, unspecified whether serious comorbidity present 8 Marci Bell. [address], 4th Floor, [place], [place], [id number], [place]. tel:[phone] Referring Provider: Ray Covarrubias, [address] 4th Floor, [place], [address] . tel:[phone] [facility], [address], [place], [address], [place] tel: [phone] [facility] No Information Bailee Hernandez. [address], 4th Floor, [place], [address], [place]. tel:[phone] Referring Provider: David Morocho, [address] [facility], [place], [address]. tel:[phone] OV Est Pt, Detailed Visit [facility], [address] , [place], [address], [place] tel: [phone] [facility] IM leg pain (chief complaint)ruba ght loss (chief complaint)fms . (chief complaint)rls (chief complaint) Fibromyalgia RLS (restless legs syndrome)Obe sity, unspecified classificati on, unspecified obesity type, unspecified whether serious comorbidity presentIrrit able bowel syndrome with diarrhea 8 Marci Bell. [address], 4th Floor, [place], [place], [address], [place]. tel:[phone] Referring Provider: Ray Covarrubias, [address] [facility], [place], [address] . tel:[phone] OV New Pt, Detailed Visit [facility], [address], [place], [address], [place] tel:[phone] [facility] GI IBS (chief complaint) Irritable bowel syndrome with diarrhea Bailee Sharontroy. [address], 4th Floor, [place], [address], [place]. tel:[phone] Referring Provider: Ray Covarrubias, [address] 4th Floor, [place], [address] . tel:[phone] OV Est Pt, Detailed Visit [facility], [address] [place] [address], [place], [address], tel: [phone] [facility] IM Follow Up of weight (chief complaint)abd ominal discomfort (chief complaint)Magalie rrhea daily since child/IBS (chief complaint)L br pain (chief complaint)pel deny jaylan/pressure (chief complaint)FMS /RLS (chief complaint) Irritable bowel syndrome with diarrheaObes ity, unspecified classificati on, unspecified obesity type, unspecified whether serious comorbidity presentFibro myalgiaRLS (restless legs syndrome)Dys pepsiaBreast pain, leftBreast cancer screeningBod y mass index (BMI) 45.0-49.9, adult Marci Bell. [address] [place] [address], [address] [place], [id number], . tel:[phone] Referring Provider: Ray Covarrubias, [address] [place] [address] [address] [place], [address] . tel:[phone] [facility], [address] [place] [address], [place], [address], tel: [phone] [facility] Nutrition Services [place] Obesity, unspecified classificati on, unspecified obesity type, unspecified whether serious comorbidity presentIrrit able bowel syndrome with diarrheaVita min D deficiency [place] Kinsey. [address] [place] [address], [address] [place], [place], [id number], . tel:[phone] Referring Provider: Ray Covarrubias, [address] [place] [address] [address], [place], [address] . tel:[phone] OV Est Pt, Detailed Visit [facility], [address] [place] [address], [address], tel: [phone] [facility] IM follow up (chief complaint)str ess (chief complaint) Obesity, unspecified classificati on, unspecified obesity type, unspecified whether serious comorbidity presentStres sVitamin D deficiency Marci Bell. [address], 4th Floor, [place], [place], [id number], [place]. tel:[phone] Referring Provider: Ray Covarrubias, [address] [facility] [address] [facility], [place], [address] . tel:[phone] OV New Pt, [facility], [address] [facility], [place], [address], tel:[phone] [facility] IM est care (chief complaint)kaleb sea (chief complaint)FMS (chief complaint)RLS (chief complaint)ruba ght gain (chief complaint)cou gh/bronchitis /phlegm clear (chief complaint) Irritable bowel syndrome with diarrheaFibr omyalgiaNaus eaObesity, unspecified classificati on, unspecified obesity type, unspecified whether serious comorbidity presentBronc hitis 7 Marci Bell. [address] [facility], [address] [place], [place], [id number], . tel:[phone] Referring Provider: Ray Covarrubias, [address] [place] [address] [address] [facility], [place], [address] . tel:[phone] Family History Family Member Type Diagnosis Age [...] Record Payers Payer name Insurance type Covered alliance party ID Authoriza tion(s) [facility] CI [id number] [facility] CI [id number] [facility] CI [id number] Social History Type Description Quantity Date Captured [...] Referred To: Julian Gatica MD [address] [facility]
[address] [place], [phone] Ordered: Referrals: [facility] Metabolism. Julian [...] Referral Referred To: Ariel Marie MD [address] [facility] [address] [place], [phone] Ordered: Referrals: Pain Medicine. Ariel Marie MD. [...] Referral Referred To: [place] [address] [facility] [address] [place], [place], [phone] Ordered: Referrals: Orthopedic Surgery. Juan Daniel Mariscal MD. Consult ordered Referral Ordered: Knee Xray Complete 4 Views (AP Lateral, Tunnel And [place]) Right ordered Referral Ordered: MRI Lower Extremity, Joint W/o Contrast (Please Specify Site) Right knee ordered Referral Ordered: Kerry Louie MD -Rheumatology (related to Pain of right lower extremity) ordered Referral [place]: [place] [address] [facility] [address]
4th [place], [phone] Ordered: Referrals: Rheumatology. Kerry Louie MD. Evaluate and treat ordered Referral Ordered: Upper GI Endoscopy, Biopsy ordered Referral Ordered: Colonoscopy ordered Referral Ordered: David Morocho MD -Gastroenterology (related to Irritable bowel syndrome with diarrhea) ordered Referral [place]: [place] [address] [facility]
[address] [place], [phone] Ordered: Referrals: Gastroenterology. David Morocho MD. Consult ordered Referral Ordered: SCR MAMMO BI INCL CAD ordered Referral Ordered: [facility] -Clip Riveter (related to Obesity, unspecified classification, unspecified obesity type, unspecified whether serious comorbidity present) ordered Referral Ordered: [facility] -Clip Riveter (related to Obesity, unspecified classification, unspecified obesity type, unspecified whether serious comorbidity present) ordered Referral Referred To: [facility] [address] [facility] [address] [place], [phone] Ordered: Referrals: Clip Riveter. Kinsey Lockhart MBA, RD Nataly CNS. 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 RIGHT KNEE IS WORSE AND WAS SCOPED WITHIN LAST 2 YEARS AND INJ JUST BEFORE THANKSGIVING W/O SUCCESS. R PAIN 03/05, L PAIN 09/03. PT DENIES HX, SX, INJ ON LEFT. HAS HX OF FIBROMYALGA. 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,She is seeng pain management next weekreports of fatigue and body pain after work F/U osteoarthritis She had fibro myalgia flare, she went to [place] during , she took valium and felt [...] beat; very fast and then [facility] and found fast heart rate rate 200-275; ; felt very faint; scared; ; on day monitor picked up small flurries of svt rate up to 270; ; ablation surgery 2011; now had heart rate from 80 to suddenly 130; feels the tachycardia; trmbling shaking; had 3 children and 3 stepchildren; weight 291 and niw 239; ibs;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 Had treatment in [place] - [facility] 2 x /wk for 3 years. Helped with back and knees. Moved to [place] from [place] in May 2017. Moved into an aarent [...] PT RT KNEE PAIN; SHE MOVING FROM [place], AND HAD ORTHO CARE; JAC INJECTIONS, BUT WORSENED; SHE STATES SHE HAS FIBROMYALGIA; STANDING XRAY TODAY ([facility]); [facility]. F/U Pain In R Leg DID not [...] hip or back pain. X rays at [place], consulted Orthopedic and Dx with osteoarthritis. Swelling worse at night, when she has been up on her feet all day. She also reports of right knee giving out, she walks up and down 3 flights of stairs with difficulty. No Right knee injury. 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 Location: right. Additional information: both legs pain/aches/throbs R>L. walking worsens, espec up stairs. no trauma. vacular w/u negative. no back pain. 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 saw ortho in [place]. Xray showed arthritis in knee but mild had knee injected with cortis w/o relief. Very active person. rls fms. weight loss leg pain Additional infor mation: driving to [place]. legs and arms ache/spasms. pain at rest/better with walking. chronic all my life exten w/u neg incl vasc w/u. DX FMS. whole body hurts. IBS pelvic jaylan/pressure on and off. FMS/RLS mila helps. L br pain Diarrhea daily since child/IBS t akes Ensure daily abdominal discomfort It occurs d aily. Additional information: comes on after eating. sometimes in mid of night. has seen GI in past. Follow Up of weight stress 2 young [...] Bilateral advanced v arus aligned knees with [id number] arthritic changes right worse than left. Her [...]
--- OUTSIDE RECORDS SUMMARY | 2024-11-27 01:03 | XMS_ITS | Encounter Summary ---
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
--- OUTSIDE RECORDS SUMMARY | 2024-11-27 01:03 | XMS_ITS | Encounter Summary ---
Author Organization [facility] Address [address] [place] [address] Care Team Providers Care Operations Support Representative Name Role Phone Ana Cristina Hopkins DO Primary Care Provider [phone] Encounter Details Date Type Department Care Team (Late st Contact Info) Description 04/11/2021 Patient Feed Message Enc [facility] Medical Group Family Medicine - [place] [address] [facility], [address] [place] [phone] Ana Cristina Hopkins DO [address] [place], [place] [id number] question pertaining to lyrica Social History Tobacco [...] on file Legal Sex Female 2:44 PM 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 No / Unsure 04/13/2021 11:30 AM RUBY ON RAILS SOFTWARE DEVELOPER documented as of this encounter Plan of Treatment Not on file documented as of this encounter Visit Diagnoses Not on filedocumented in this encounter Additional Health Concerns Assessment Noted Time PHQ-9 Depression Total Score: 15 021 8:57 AM RUBY ON RAILS SOFTWARE DEVELOPER documented as of this encounter Care Teams Operations Support Representative Relationship Specialty Start Date End Date Ana Cristina Hopkins DO [address] [place] [address] PCP - General FAMILY PRACTICE 07/15/20 documented as of this encounter
--- OUTSIDE RECORDS SUMMARY | 2024-11-27 01:03 | XMS_ITS | Encounter Summary ---
Author Organization [facility] Address [address] [place] [address] Care Team Providers Care Poultry Cutter Name Role Phone Ana Cristina Hopkins DO Primary Care Provider Encounter Details Date Type Department Care Team (Latest Contact Info) Description 11/26/2024 5:07 PM CDT Hospital Encounter [facility] [address] [place], [place] [id number] Urinary frequency Social History Tobacco Use Types Packs/Day Years Used Date Smoking Tobacco: Never Assessed Comments No Sex and Gender Information Value Date Recorded Sex Assigned at Not on file Legal Sex Female 3:17 PM 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 Gender Identity Not on file Sexual Orientation Not on file documented as of this encounter Plan of Treatment Upcoming Encounters Date Type Department Care Team (Late st Contact Info) Description 06/02/2025 9:30 AM 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 Hospital Encounter [address] [address]Berenice Null MD [address] [place] [address] 06/02/2025 9:30 AM 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 - 06/02/2025 10:00 AM 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 Surgery [address] [address]Berenice Null MD [address] [place] [address] COLONOSCOPY Pending Results Name Type Priority Associated Diagnoses Date /Time Urine culture Urine, clean voided Microbiology Routine Urinary frequency 11/26/2024 5:07 PM CDT Scheduled Orders Name Type Priority Associated Diagnoses Orde r Schedule Urine culture Urine, clean voided Microbiology Routine Urinary frequency Once for 1 Occurrences starting 11/26/2024 until 11/26/2024 Scheduled Procedures Name Priority Associated Diagnoses Date/Ti me COLONOSCOPY History of colonic polyps 06/02/2025 9:30 AM 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 documented as of this encounter Visit Diagnoses Diagnosis History of colonic polyps- Primary Personal history of colonic polyps Urinary frequency History of colonic polyps Personal history of colonic polyps documented in this encounter Care Teams Poultry Cutter Relationship Specialty Start Date End Date Ana Cristina Hopkins DO [address] [place] [id number] PCP - General Family Medicine 09/30/24 documented as of this encounter
--- OUTSIDE RECORDS SUMMARY | 2024-11-27 01:03 | XMS_ITS | Encounter Summary ---
Author Organization [facility] Address [address] [place] [address] Care Team Providers Care Student Accounts Coordinator Name Role Phone Ana Cristina Hopkins DO Primary Care Provider [phone] Encounter Details Date Type Department Care Team (Late st Contact Info) Description 02/26/2021 Funding Options Message Enc [facility] Medical Group Family Medicine - [place] [address] [facility], [address] [place] [phone] Ana Cristina Hopkins DO [address] [place], [place] [phone] RE: Question Social History Tobacco Use Types [...] on file 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
--- OUTSIDE RECORDS SUMMARY | 2024-11-27 01:03 | XMS_ITS | Encounter Summary ---
Author Organization [facility] Address [address] [place] [address] Care Team Providers Care Centerless Grinder Set Up Operator Name Role Phone Ana Cristina Hopkins DO Primary Care Provider [phone] Encounter Details Date Type Department Care Team (Late st Contact Info) Description 01/15/2024 [place] Message Enc [facility] Medical Group Family Medicine - [place] [address] [facility], [address] [place] [phone] Ana Cristina Hopkins DO [address] [place], [place] [phone] Timothy Valdivia Social History Tobacco Use Types [...] on file 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
--- OUTSIDE RECORDS SUMMARY | 2024-11-27 01:03 | XMS_ITS | Encounter Summary ---
Author Organization [facility] Address [address] [place] [address] Care Team Providers Care Contact Officer Name Role Phone Ana Cristina Hopkins DO Primary Care Provider [phone] Encounter Details Date Type Department Care Team (Late st Contact Info) Description 03/13/2024 [facility] Message Enc [facility] Medical Group Family Medicine - [place] [address] [facility], [address] [place] [phone] Ana Cristina Hopkins DO [address] [place], [place] [phone] Sick again Social History Tobacco Use Types [...] on file 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
--- OUTSIDE RECORDS SUMMARY | 2024-11-27 01:03 | XMS_ITS | Encounter Summary ---
Author Organization [facility] Address [address] [place] [address] Care Team Providers Care Radiology Special Procedure Tech Name Role Phone Ana Cristina Hopkins DO Primary Care Provider Encounter Details Date Type Department Care Team (Late st Contact Info) Description 08/16/2022 [employer]Snap Message Enc [facility] Medical Group Family Medicine - [place] [address] [facility], [address] [place] [phone] Ana Cristina Hopkins DO [address] [place], [place] [phone] OBGYN Social History Tobacco Use Types Packs/Day [...] on file Legal Sex Female 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
--- OUTSIDE RECORDS SUMMARY | 2024-11-27 01:03 | XMS_ITS | Encounter Summary ---
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
--- NOTE | 2024-11-27 01:35 | ED.ABDPAIN ---
HPI - Abdominal Pain General Chief Complaint: Abdominal Pain <Jenny Zhu PA-C - Last Filed: 11/27/24 02:58> Stated Complaint: RLQ pain that radiates into the vagina, nausea <Jenny Zhu PA-C - Last Filed: 11/27/24 02:58> Time Seen by Provider: 11/27/24 00:56 <Jenny Zhu PA-C - Last Filed: 11/27/24 02:58> History of Present Illness HPI narrative: 49-year-old female with history of anxiety, ankylosing spondylitis and fibromyalgia presents to emergency department for right sided abdominal pain for the past 4 days. Patient states the night prior to developing her pain she had pepperoni for dinner then woke up with pain to her right upper quadrant with associated nausea. Throughout the week the pain has migrated to the right lower quadrant and at times radiates into her vagina and into her right low back. She states the pain is sharp and shooting in nature. States the pain is better when she puts pressure on her right abdomen with her hands. She denies dysuria or hematuria, denies history of kidney stones. She is endorsing some urinary frequency and urgency. She thought she had urinary tract infection and went to urgent care today, had a negative UA and was advised to come to the ED for further evaluation. She endorses a prior history of 2 sections and partial hysterectomy. She endorses associated nausea but no vomiting or diarrhea. Last bowel movement was today. She denies vaginal discharge or concern for STDs. <Jenny Zhu PA-C - Last Filed: 11/27/24 02:58> Related Data Home Medications: Home Medications ?Medication ?Instructions ?Recorded ?Confirmed ?Last Taken ?Type alprazolam 0.25 mg tablet 0.25 mg PO DAILY 05/28/23 01/06/24 Unknown History aripiprazole 10 mg tablet 10 mg PO DAILY 05/28/23 01/06/24 Unknown History atenolol 50 mg tablet 50 mg PO DAILY 05/28/23 01/06/24 Unknown History baclofen 5 mg tablet 5 mg PO DAILY 05/28/23 01/06/24 Unknown History celecoxib 200 mg capsule 200 mg PO DAILY 05/28/23 01/06/24 Unknown History diclofenac sodium 75 mg 75 mg PO BID 05/28/23 01/06/24 Unknown History tablet,delayed release galcanezumab-gnlm 120 mg/mL 120 mg subcut MONTHLY 05/28/23 01/06/24 Unknown History subcutaneous syringe (Emgality) loratadine 10 mg disintegrating 10 mg PO DAILY 05/28/23 01/06/24 Unknown History tablet prednisone 5 mg tablet 5 mg PO DAILY 05/28/23 01/06/24 Unknown History sertraline 100 mg tablet 100 mg PO DAILY 05/28/23 01/06/24 Unknown History sulfasalazine 500 mg 0.5 g PO DAILY 05/28/23 01/06/24 Unknown History tablet,delayed release tramadol 50 mg tablet 50 mg PO Q6H PRN 05/28/23 01/06/24 Unknown History <Jenny Zhu PA-C - Last Filed: 11/27/24 02:58> Allergies/Adverse Reactions: Allergies Allergy/AdvReac Type Severity Reaction Status Date / Time Latex, Natural Rubber Allergy Severe Hives Verified 11/27/24 03:07 morphine Allergy Severe Palpitation Verified 11/27/24 03:07 s <Jenny Zhu PA-C - Last Filed: 11/27/24 02:58> Review of Systems Review of Systems: All systems reviewed & are unremarkable except as noted in HPI and below <Jenny Zhu PA-C - Last Filed: 11/27/24 02:58> PMFSH Past Medical History Medical History: Medical History (ankylosing spondylitis) IBS (irritable bowel syndrome) Anxiety Knee pain Rheumatic arthritis of temporomandibular joint Arthritis Fibromyalgia <Jenny Zhu PA-C - Last Filed: 11/27/24 02:58> Surgical History Surgical History: Surgical History H/O: hysterectomy Delivery by section H/O hand surgery H/O knee surgery History of cardiac radiofrequency ablation <Jenny Zhu PA-C - Last Filed: 11/27/24 02:58> Social History Social History: Social History Social History: Caffeine- None Smoking status: Never smoker Alcohol intake: current Alcohol use details: rarely Substance use: current Substance use type: marijuana Do You Feel Safe in your Home?: Yes Lack of Transportation: No Lack of Food: Never True Current Housing: I Have Housing Concerned About Future Housing: No Difficulty Paying Gas/Electric Bills: No Difficulty Paying for Meds: No Currently Unemployed: No Education: Associate Degree Difficulty w/ Childcare or Family Care: No Living arrangements: with family Additional living arrangements comments: spouse and kid Occupation/Education: occupation 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 HEAD: Normocephalic, atraumatic. EYES: PERRLA and EOMI. ENT: Nares clear, no rhinorrhea or epistaxis. Mucous membranes moist. NECK: Supple. CHEST: Clear to auscultation. No respiratory distress. HEART: Regular rate and rhythm. No murmur heard. Normal peripheral pulses. ABDOMEN: Normoactive bowel sounds. Abdomen soft with tenderness in the right lower quadrant. Negative Mejia's sign. No rebound, guarding or rigidity. No CVA tenderness : Chaperoned by CARMELINA [place]: Normal external genitalia with no rashes or lesions. Normal physiologic vaginal discharge in vaginal vault. No bleeding, no clots. Intact vaginal cuff. No adnexal masses or tenderness, no CMT. EXTREMITIES: Normal range of motion. No edema. SKIN: Warm, dry, no rash. NEURO: No focal deficits. Alert and oriented x3 <Jenny Zhu PA-C - Last Filed: 11/27/24 02:58> Course Course Emergency Course: Patient care signed out by previous provider pending CT scan ultrasound results. Patient presented with right lower quadrant pain radiating towards the vagina and some urinary symptoms. Ultrasound was done that shows some bladder debris concerning for cystitis but nonvisualization of the uterus or ovaries. CT scan pending. Laboratory studies showed no leukocytosis or anemia. Normal platelet count. Electrolytes are unremarkable. Normal kidney function. Normal glucose. LFTs mildly elevated but no recent baseline to compare to. Will have her follow-up with her doctor about this. Urinalysis without any signs of infection. Negative test. CT scan shows organs within normal limits, no bowel obstruction. Jennifer mesentery with potential mesenteric panniculitis. Normal appendix, no fracture. Patient will be informed about the CT findings and discharged home with anti-inflammatory control. She will follow-up with GI on outpatient basis. <Ismael Proctor MD - Last Filed: 11/27/24 06:48> Vital Signs Vital signs: Vital Signs Temperature 36.4 C 11/26/24 18:02 Pulse Rate 88 11/26/24 18:02 Respiratory Rate 16 11/26/24 18:02 Blood Pressure 132/76 11/26/24 18:02 Pulse Oximetry 98 11/26/24 18:02 Temperature 36.8 C 11/27/24 03:18 Pulse Rate 67 11/27/24 06:12 Respiratory Rate 14 11/27/24 06:12 Blood Pressure 136/78 11/27/24 06:12 Pulse Oximetry 93 11/27/24 06:12 Oxygen Delivery Room Air 11/27/24 03:18 <Jenny Zhu PA-C - Last Filed: 11/27/24 02:58> Vital Signs Temperature 36.4 C 11/26/24 18:02 Pulse Rate 88 11/26/24 18:02 Respiratory Rate 16 11/26/24 18:02 Blood Pressure 132/76 11/26/24 18:02 Pulse Oximetry 98 11/26/24 18:02 Temperature 36.8 C 11/27/24 03:18 Pulse Rate 67 11/27/24 06:12 Respiratory Rate 14 11/27/24 06:12 Blood Pressure 136/78 11/27/24 06:12 Pulse Oximetry 93 11/27/24 06:12 Oxygen Delivery Room Air 11/27/24 03:18 <Ismael Proctor MD - Last Filed: 11/27/24 06:48> MDM - Abdominal Pain MDM Narrative Medical decision making narrative: 49-year-old female with history of fibromyalgia, and anxiety presents to the emergency department for right-sided abdominal pain for the past 4 days. See HPI for further history. Triage vitals are stable. Exam is notable for the above. Differential diagnosis includes but is not limited to cholecystitis, appendicitis, ovarian torsion, UTI, pyelonephritis, ureterolithiasis. Will obtain lab work, CT abdomen and pelvis with contrast, UA and pelvic ultrasound. Patient was given IV fluids, Zofran and Dilaudid for pain control. Pending labs and imaging at time of sign-out to Dr. Proctor. <Jenny Zhu PA-C - Last Filed: 11/27/24 02:58> Lab Data Result diagrams: 11/27/24 03:01 11/27/24 03:01 <Jenny Zhu PA-C - Last Filed: 11/27/24 02:58> Labs: Lab Results 11/27/24 11/27/24 11/27/24 Range/Units 03:01 03:26 03:30 WBC 8.6 (4.5-10.0) K/mm3 RBC 4.46 (4.2-5.4) M/mm3 Hgb 13.4 (12.0-15.0) g/dL Hct 41.2 (37.0-47.0) % MCV 92.4 (80-100) fl MCH 30.0 (26-34) pg MCHC 32.5 (32-36) g/dl RDW 15.2 H (11.5-14.5) % Plt Count 283 (150-375) k/mm3 MPV 9.1 (7.4-10.4) fl Immature Gran % (Auto) 0.3 (0-0.5) % Neut % (Auto) 50.8 (45.5-73.1) % Lymph % (Auto) 35.1 (18.3-44.2) % [place] % (Auto) 9.2 H (2.6-8.5) % Eos % (Auto) 4.0 (0-4.4) % Baso % (Auto) 0.6 (0.2-1.2) % Lymph # (Auto) 3.01 (0.9-3.2) K/mm3 [place] # (Auto) 0.8 H (0.1-0.6) K/mm3 Eos # (Auto) 0.3 (0-0.3) K/mm3 Baso # (Auto) 0.1 (0.0-0.1) K/mm3 Abs Immat Gran (auto) 0.03 (0.00-0.031) K/mm3 Absolute Neuts (auto) 4.4 (1.3-6.7) K/mm3 Absolute Nucleated RBC 0.000 (0.0-0.012) K/mm3 Nucleated RBC % 0.0 (0.0-0.2) % Sodium 137 (137-145) mmol/L Potassium 3.5 (3.4-5.0) mmol/L Chloride 105 (98-107) mmol/L Carbon Dioxide 24 (22-30) mmol/L Anion Gap 8 (4-12) mmol/L BUN 9 (7-17) mg/dL Creatinine 0.58 L (0.7-1.0) mg/dL Estim Creat Clear Calc 123 ml/min Estimated GFR > 60 (59 - ) Glucose 88 (65-110) mg/dL Calcium 9.6 (8.4-10.2) mg/dL Total Bilirubin 0.5 (0.2-1.3) mg/dL AST 83 H (14-36) U/L ALT 95 H (6-35) U/L Alkaline Phosphatase 65 (38-126) U/L Total Protein 7.7 (6.3-8.2) g/dL Albumin 4.2 (3.5-5.1) g/dL Lipase 80 (23-300) U/L Urine Color Yellow (Yellow) Urine Appearance Clear (Clear) Urine pH 6.0 (5.0-9.0) Ur Specific [place] 1.017 (1.001-1.035) Urine Protein Negative (Negative) mg/dL Urine Glucose (UA) Negative (Negative) mg/dL Urine Ketones Negative (Negative) mg/dL Ur Blood (Man) Negative (Negative) Urine Nitrate Negative (Negative) Urine Bilirubin Negative (Negative) Urine Urobilinogen 0.2 (<2.0) mg/dL Leukocyte Esterase Rfl Negative (Negative) AMRIT/UL POC Urine HCG, Qual Negative (Negative) <Jenny Zhu PA-C - Last Filed: 11/27/24 02:58> Lab Results 07/09/1811/27/24 11/27/24 Range/Units 03:01 03:26 03:30 WBC 8.6 (4.5-10.0) K/mm3 RBC 4.46 (4.2-5.4) M/mm3 Hgb 13.4 (12.0-15.0) g/dL Hct 41.2 (37.0-47.0) % MCV 92.4 (80-100) fl MCH 30.0 (26-34) pg MCHC 32.5 (32-36) g/dl RDW 15.2 H (11.5-14.5) % Plt Count 283 (150-375) k/mm3 MPV 9.1 (7.4-10.4) fl Immature Gran % (Auto) 0.3 (0-0.5) % Neut % (Auto) 50.8 (45.5-73.1) % Lymph % (Auto) 35.1 (18.3-44.2) % [place] % (Auto) 9.2 H (2.6-8.5) % Eos % (Auto) 4.0 (0-4.4) % Baso % (Auto) 0.6 (0.2-1.2) % Lymph # (Auto) 3.01 (0.9-3.2) K/mm3 [place] # (Auto) 0.8 H (0.1-0.6) K/mm3 Eos # (Auto) 0.3 (0-0.3) K/mm3 Baso # (Auto) 0.1 (0.0-0.1) K/mm3 Abs Immat Gran (auto) 0.03 (0.00-0.031) K/mm3 Absolute Neuts (auto) 4.4 (1.3-6.7) K/mm3 Absolute Nucleated RBC 0.000 (0.0-0.012) K/mm3 Nucleated RBC % 0.0 (0.0-0.2) % Sodium 137 (137-145) mmol/L Potassium 3.5 (3.4-5.0) mmol/L Chloride 105 (98-107) mmol/L Carbon Dioxide 24 (22-30) mmol/L Anion Gap 8 (4-12) mmol/L BUN 9 (7-17) mg/dL Creatinine 0.58 L (0.7-1.0) mg/dL Estim Creat Clear Calc 123 ml/min Estimated GFR > 60 (59 - ) Glucose 88 (65-110) mg/dL Calcium 9.6 (8.4-10.2) mg/dL Total Bilirubin 0.5 (0.2-1.3) mg/dL AST 83 H (14-36) U/L ALT 95 H (6-35) U/L Alkaline Phosphatase 65 (38-126) U/L Total Protein 7.7 (6.3-8.2) g/dL Albumin 4.2 (3.5-5.1) g/dL Lipase 80 (23-300) U/L Urine Color Yellow (Yellow) Urine Appearance Clear (Clear) Urine pH 6.0 (5.0-9.0) Ur Specific [place] 1.017 (1.001-1.035) Urine Protein Negative (Negative) mg/dL Urine Glucose (UA) Negative (Negative) mg/dL Urine Ketones Negative (Negative) mg/dL Ur Blood (Man) Negative (Negative) Urine Nitrate Negative (Negative) Urine Bilirubin Negative (Negative) Urine Urobilinogen 0.2 (<2.0) mg/dL Leukocyte Esterase Rfl Negative (Negative) AMRIT/UL POC Urine HCG, Qual Negative (Negative) <Ismael Proctor MD - Last Filed: 11/27/24 06:48> Discharge Plan Discharge Clinical Impression: Right lower quadrant abdominal pain, Elevated LFTs, Mesenteric panniculitis <Jenny Zhu PA-C - Last Filed: 11/27/24 02:58> Patient Disposition: Home <GATITO Hammond Last Filed: 11/27/24 02:58> Condition: Stable <GATITO Hammond Last Filed: 11/27/24 02:58> Instructions: Antibiotic Form, Abdominal Pain (ED) <Jenny Zhu PA-C - Last Filed: 11/27/24 02:58> Additional Instructions: Your CT scan shows some inflammation of the mesentery in your abdominal region which could explain your vague symptomatology. No signs of an infection in your laboratory studies are reassuring. You do have some mildly elevated liver function panel enzymes but these are likely unrelated to her symptoms today but do need to be followed up on outpatient basis. Treatment of mesentery inflammation is with anti-inflammatory measures and we will prescribe you appropriate dosages of these. He will have to follow up with a GI doctor on outpatient basis. Call your regular doctor for close follow-up in the provided GI specialist. Return with any emergent concerns. <Jenny Zhu PA-C - Last Filed: 11/27/24 02:58> Patient Language: Czech <Jenny Zhu PA-C - Last Filed: 11/27/24 02:58> Prescriptions: New ibuprofen 600 mg tablet 600 mg PO TID PRN (Reason: pain) Qty: 20 0RF methylprednisolone [Medrol ([place])] 4 mg tablets,dose pack See Rx Instructions .ROUTE .COMPLEX Qty: 21 0RF Rx Instructions: orally per package directions No Action sertraline 100 mg tablet 100 mg PO DAILY celecoxib 200 mg capsule 200 mg PO DAILY sulfasalazine 500 mg tablet,delayed release (DR/EC) 0.5 g PO DAILY prednisone 5 mg tablet 5 mg PO DAILY aripiprazole 10 mg tablet 10 mg PO DAILY atenolol 50 mg tablet 50 mg PO DAILY tramadol 50 mg tablet 50 mg PO Q6H PRN loratadine 10 mg tablet,disintegrating 10 mg PO DAILY baclofen 5 mg tablet 5 mg PO DAILY diclofenac sodium 75 mg tablet,delayed release (DR/EC) 75 mg PO BID Emgality Syringe 120 mg/mL syringe 120 mg subcut MONTHLY alprazolam 0.25 mg tablet 0.25 mg PO DAILY Wegovy 0.25 mg/0.5 mL pen injector 0.25 mg subcut WEEKLY Qty: 2 0RF Rx Instructions: administer weeks 1 through 4 of therapy <Jenny Zhu PA-C - Last Filed: 11/27/24 02:58> Follow-up/Referrals: Cheikh Peña MD [Physician] - 2 Weeks (Mesenteric panniculitis) UNKNOWN,DOCTOR [Primary Care Provider] - <Jenny Zhu PA-C - Last Filed: 11/27/24 02:58> Time of Disposition: 06:48 <Jenny Zhu PA-C - Last Filed: 11/27/24 02:58> 06:48 <Ismael Proctor MD - Last Filed: 11/27/24 06:48>
[2024-11-27] MEDS: SODIUM CHLORIDE 0.9% IV 1,000 ML 999 ML IV CONT (03:16)
[2024-11-27] MEDS: ONDANSETRON INJ 4 MG/2 ML VIAL IV PUSH (03:16)
[2024-11-27 03:23] LABS: Hematocrit 41.2 % (37.0-47.0); Hemoglobin 13.4 g/dL (12.0-15.0); Immature Granulocyte Percent A 0.3 % (0-0.5); Lymphocytes Absolute Auto 3.01 K/mm3 (0.9-3.2); Mean Corpuscular HGB Conc 32.5 g/dl (32-36); Mean Corpuscular Hemoglobin 30.0 pg (26-34); Mean Corpuscular Volume 92.4 fl (80-100); Nucleated Red Blood Cells Absolute Auto 0.000 K/mm3 (0.0-0.012); Nucleated Red Blood Cells Perc 0.0 % (0.0-0.2); Platelet Count Result 283 k/mm3 (150-375); Red Blood Count 4.46 M/mm3 (4.2-5.4); White Blood Count 8.6 K/mm3 (4.5-10.0)
[2024-11-27] MEDS: HYDROmorphone HCL INJ (*CRX) 2 MG/ML VIAL 0.5 MG IV PUSH (03:24)
[2024-11-27 03:32] LABS: BEDSIDEPREGUCG Negative (Negative)
[2024-11-27 03:34] LABS: Add Urine Microscopic? NO; Appearance Urine Clear (Clear); Glucose Urine UA Negative (Negative); Leukocyte Esterase Ur Negative LEU/UL (Negative); Nitrate Urine Negative (Negative); Specific Grav Ur 1.017 (1.001-1.035)
[2024-11-27 03:48] LABS: Alanine Aminotransferase 95 U/L (6-35); Albumin Level 4.2 g/dL (3.5-5.1); Alkaline Phosphatase 65 U/L (38-126); Anion Gap 8 mmol/L (4-12); Aspartate Amino Transferase 83 U/L (14-36); Bilirubin,Total 0.5 mg/dL (0.2-1.3); Blood Urea Nitrogen 9 mg/dL (7-17); Calcium 9.6 mg/dL (8.4-10.2); Carbon Dioxide 24 mmol/L (22-30); Chloride 105 mmol/L (98-107); Estimated CRCL calculation 123 ml/min; Estimated Glomerular Filt Rate > 60; Glucose 88 mg/dL (65-110); Lipase 80 U/L (23-300); Potassium 3.5 mmol/L (3.4-5.0); Sodium 137 mmol/L (137-145); Total Protein 7.7 g/dL (6.3-8.2)
[2024-11-27] MEDS: HEPARIN SODIUM LOCK FLUSH 500 UNITS/5 ML SYRINGE IV PUSH (07:01)
== END 2024-11-27 07:10 | disposition home or self-care (01) ==
PROVIDERS: Student in an Organized Health Care Education/Training Program; Emergency Provider Physician Assistant
DX: R10.31 Right lower quadrant pain (principal); R74.01 Elevation of levels of liver transaminase levels; K65.4 Sclerosing mesenteritis
CPT/HCPCS: 36415; 74177; 76830; 76856; 80053; 81003; 81025; 83690; 85025; 96361; 96374; 96375; 99284; J1171; J2405; J7030; Q9967

== ENCOUNTER 2025-01-15 02:30 | Day surgery (SDC) | payer OTHER, SELFPAY ==
[2025-01-05 12:43] VITALS: BMI 43.0
[2025-01-15 12:40] VITALS: BP 143/83; PULSE 75; RESP 14; TEMP 35.9; O2SAT 100; BMI 44.3
--- NOTE | 2025-01-15 13:38 | WPDANESEPPF ---
Anes - Initial Pre Proc Eval Procedure: Operation Date: 01/15/25 13:45 Proposed Procedures p EGD & Diagnostic Colonoscopy - Cheikh Peña MD Date/Time: 01/15/25 13:38 Surgeon: Cheikh Peña MD Pre Op Diagnosis: Gastro-esophageal reflux disease without esophagit Patient Data Age: 49 Gender: F Height: 1.6 m Weight: 113.5 kg Last Vital Signs Temp 35.9 C L 01/15/25 12:40 Pulse 75 01/15/25 12:40 Resp 14 01/15/25 12:40 BP 143/83 H 01/15/25 12:40 Pulse Ox 100 01/15/25 12:40 O2 Del Method Room Air 01/15/25 12:40 Allergies Allergy/AdvReac Type Severity Reaction Status Date / Time Latex, Natural Rubber Allergy Severe Hives Verified 01/15/25 12:49 morphine Allergy Severe Palpitation Verified 01/15/25 12:49 s Home Medications ?Medication ?Instructions ?Recorded ?Confirmed ?Type celecoxib 200 mg capsule 200 mg PO DAILY 05/28/23 01/15/25 History galcanezumab-gnlm 120 mg/mL 120 mg subcut MONTHLY 05/28/23 01/05/25 History subcutaneous syringe (Emgality) sertraline 100 mg tablet 100 mg PO DAILY 05/28/23 01/15/25 History tramadol 50 mg tablet 50 mg PO Q6H PRN pain 05/28/23 01/05/25 History ibuprofen 600 mg tablet 600 mg PO TID PRN pain #20 tabs 11/27/24 01/05/25 Rx tirzepatide (weight loss) 5 mg/0.5 5 mg subcut WEEKLY 12/02/24 01/15/25 History mL subcutaneous pen injector (Zepbound) brexpiprazole 2 mg tablet (Rexulti) 2 mg PO DAILY 01/05/25 01/15/25 History ergocalciferol (vitamin D2) 1,250 1,250 mcg PO WEEKLY 01/05/25 01/15/25 History mcg (50,000 unit) capsule folic acid 1 mg tablet 1 mg PO DAILY 01/05/25 01/15/25 History loratadine 10 mg tablet 10 mg PO DAILY 01/05/25 01/15/25 History methotrexate sodium 2.5 mg tablet 15 mg PO WEEKLY 01/05/25 01/15/25 History Patient hx anesthesia problems: none Family hx anesthesia problems: none Results Review: All pre-operative results and documents have been reviewed as part of the pre-operative evaluation. [facility] Past Medical History Medical History (ankylosing spondylitis) IBS (irritable bowel syndrome) Anxiety Knee pain Rheumatic arthritis of temporomandibular joint Arthritis Fibromyalgia Surgical History Surgical History H/O: hysterectomy Delivery by section H/O hand surgery H/O knee surgery History of cardiac radiofrequency ablation Social History Social History Social History: Caffeine- None Smoking packs per day: 1 Smoking cigarettes per day: 20.0 Years smoked: 10 Smoking pack-years: 10.00 Smoking status: Never smoker Tobacco type: cigarettes Alcohol intake: current Alcohol use details: rarely Substance use: former Substance use type: marijuana Do You Feel Safe in your Home?: Yes Lack of Transportation: No Lack of Food: Never True Current Housing: I Have Housing Concerned About Future Housing: No Difficulty Paying Gas/Electric Bills: No Difficulty Paying for Meds: No Currently Unemployed: No Education: Associate Degree Difficulty w/ Childcare or Family Care: No Living arrangements: with family Additional living arrangements comments: spouse and kid Occupation/Education: occupation 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 Gender identity (if verbalized by the patient): Female Sexual Orientation (if Verbalized by the Patient): Straight or Heterosexual Agree to blood products: Yes Anes - Eval Final PreProcedure Day of Procedure 01/15/25 13:38 Patient weight: morbidly obese Heart: regular rate and rhythm Lungs: clear to auscultation Airway: Mallampati scale class III, special considerations large neck and other (mild TMJ symptoms of clicking) Neurological: alert and oriented Last oral intake: >/= 8 hours ASA classification: III Emergent: no Anesthetic plan: proceed Anesthesia type and monitoring: general GIVS and standard monitoring Results Review: All pre-operative results and documents have been reviewed as part of the pre-operative evaluation. Informed Consent: The patient's anesthetic plan and its attendant risks and benefits were discussed with the patient/family/POA. Questions were solicited and answers provided to the satisfaction of the patient/family/POA.
[2025-01-15] MEDS: LACTATED RINGERS 1,000 ML 150 ML IV CONT (14:00)
[2025-01-15] MEDS: ONDANSETRON INJ 4 MG/2 ML VIAL IV PUSH (14:02)
[2025-01-15] MEDS: SIMETHICONE ORAL SUSPENSION 20 MG/0.3 ML 30 ML BOTTLE 1.8 ML PO (14:03)
--- NOTE | 2025-01-15 14:18 | PM.IMHP ---
H&P: HPI History of Present Illness Date/Time: 01/15/25 14:18 Chief Complaint: The patient has been having intermittent abdominal pain and diarrhea 80% times. She has been diagnosed with IBS -diarrhea. In addition she had a colonoscopy 6 years ago showing polyps. Her abdominal pain is sometimes epigastric sharp, moderate to severe. She is referred for EGD and colonoscopy. Review of Systems Review of Systems: All systems reviewed & are unremarkable except as noted in HPI and below PMFSH Past Medical History Medical History (ankylosing spondylitis) IBS (irritable bowel syndrome) Anxiety Knee pain Rheumatic arthritis of temporomandibular joint Arthritis Fibromyalgia Surgical History Surgical History H/O: hysterectomy Delivery by section H/O hand surgery H/O knee surgery History of cardiac radiofrequency ablation Social History Social History Social History: Caffeine- None Smoking packs per day: 1 Smoking cigarettes per day: 20.0 Years smoked: 10 Smoking pack-years: 10.00 Smoking status: Never smoker Tobacco type: cigarettes Alcohol intake: current Alcohol use details: rarely Substance use: former Substance use type: marijuana Do You Feel Safe in your Home?: Yes Lack of Transportation: No Lack of Food: Never True Current Housing: I Have Housing Concerned About Future Housing: No Difficulty Paying Gas/Electric Bills: No Difficulty Paying for Meds: No Currently Unemployed: No Education: Associate Degree Difficulty w/ Childcare or Family Care: No Living arrangements: with family Additional living arrangements comments: spouse and kid Occupation/Education: occupation Additional occupation/education comments: [employer] Gender identity (if verbalized by the patient): Female Sexual Orientation (if Verbalized by the Patient): Straight or Heterosexual Agree to blood products: Yes Meds Home Medications and Allergies Home Medications ?Medication ?Instructions ?Recorded ?Confirmed ?Type celecoxib 200 mg capsule 200 mg PO DAILY 05/28/23 01/15/25 History galcanezumab-gnlm 120 mg/mL 120 mg subcut MONTHLY 05/28/23 01/05/25 History subcutaneous syringe (Emgality) sertraline 100 mg tablet 100 mg PO DAILY 05/28/23 01/15/25 History tramadol 50 mg tablet 50 mg PO Q6H PRN pain 05/28/23 01/05/25 History ibuprofen 600 mg tablet 600 mg PO TID PRN pain #20 tabs 11/27/24 01/05/25 Rx tirzepatide (weight loss) 5 mg/0.5 5 mg subcut WEEKLY 12/02/24 01/15/25 History mL subcutaneous pen injector (Zepbound) brexpiprazole 2 mg tablet (Rexulti) 2 mg PO DAILY 01/05/25 01/15/25 History ergocalciferol (vitamin D2) 1,250 1,250 mcg PO WEEKLY 01/05/25 01/15/25 History mcg (50,000 unit) capsule folic acid 1 mg tablet 1 mg PO DAILY 01/05/25 01/15/25 History loratadine 10 mg tablet 10 mg PO DAILY 01/05/25 01/15/25 History methotrexate sodium 2.5 mg tablet 15 mg PO WEEKLY 01/05/25 01/15/25 History Allergies Allergy/AdvReac Type Severity Reaction Status Date / Time Latex, Natural Rubber Allergy Severe Hives Verified 01/15/25 12:49 morphine Allergy Severe Palpitation Verified 01/15/25 12:49 s Vital Signs Vital Signs - 24 hr 01/15/25 12:40 Temperature 96.6 F L Pulse Rate 75 Respiratory Rate 14 Blood Pressure 143/83 H Pulse Oximetry 100 Oxygen Delivery Room Air Exam Const: General: cooperative and healthy appearing Resp: Effort & Inspection: normal respiratory effort and able to speak in complete sentences Auscultation: clear to auscultation bilaterally Cardio: Rate: regular rate Rhythm: regular rhythm GI: Inspection: normal to inspection GI Palp: No No hepatosplenomegaly present Auscultation: normal bowel sounds Rectal Exam: deferred Skin: General skin exam: normal color Psych: Appearance: grossly normal Mental Status: mental status grossly normal Assessment and Plan Assessment and plan (1) Diarrhea: Qualifiers: Diarrhea type: unspecified type Qualified Code(s): R19.7 - Diarrhea, unspecified Code(s): R19.7 - Diarrhea, unspecified Status: Acute Assessment and Plan: The patient is deemed a good candidate for the procedure. Consent signed. Will proceed. (2) Generalized abdominal pain: Code(s): R10.84 - Generalized abdominal pain Status: Acute
[2025-01-15] MEDS: BENZOCAINE (*SP) 60 ML SPRAY CAN (HURRICAINE) 1 SPRAY MUCOUS MEM (14:24)
--- NOTE | 2025-01-15 14:31 | S_PTH ---
PATIENT: Mirela Valdivia LOC: [facility] U#:[id number] AGE/SX: 49/F ROOM: RE01/15/[address]: Cheikh Peña MD : 1975 BED: DIS: 01/15/2025 SPEC #: [id number] RECD: 01/18/25 07:48 STATUS: TIFFANIE REQ #: [id number] DASHAWN: 01/15/25 14:[address]: Cheikh Peña DEPT: [facility] Surgical RECD BY: Aleta Craven ENTERED: 01/18/25 07:48 SP TYPE: Surgical OTHR DR: Ana Cristina Hopkins, DO Tissues: A - Gastric Biopsy B - Gastric Biopsy C - Colon Biopsy D - Colon Biopsy Procedures: Hematoxylin and Eosin Stain Gross and Microscopic Level 4
--- NOTE | 2025-01-15 14:34 | SUR.OPER ---
EGD end 1429 COLONOSCOPY START 1438
[2025-01-15 14:49] VITALS: BP 127/76; PULSE 84; RESP 18; O2SAT 98
[2025-01-15 14:59] VITALS: BP 124/74; PULSE 82; RESP 15; O2SAT 99
[2025-01-15 15:09] VITALS: BP 121/75; PULSE 68; RESP 17; O2SAT 98
== END 2025-01-15 15:19 | disposition home or self-care (01) ==
PROVIDERS: PCP Family Medicine; Referring Provider Nurse Practitioner Family; Visit Provider Internal Medicine Gastroenterology
PROC: 0DJ08ZZ Inspection of Upper Intestinal Tract, Via Natural or Artificial Opening Endoscopic (ICD-10-PCS; CPT 45378; principal; 2025-01-15 13:45)
DX: K58.0 Irritable bowel syndrome with diarrhea (principal); K29.50 Unspecified chronic gastritis without bleeding; K57.30 Diverticulosis of large intestine without perforation or abscess without bleeding; K21.9 Gastro-esophageal reflux disease without esophagitis; F41.9 Anxiety disorder, unspecified; M79.7 Fibromyalgia; M06.9 Rheumatoid arthritis, unspecified; M19.90 Unspecified osteoarthritis, unspecified site; F12.90 Cannabis use, unspecified, uncomplicated; E66.01 Morbid (severe) obesity due to excess calories; Z68.41 Body mass index [BMI] 40.0-44.9, adult; Z79.891 Long term (current) use of opiate analgesic; Z79.85 Long-term (current) use of injectable non-insulin antidiabetic drugs; Z79.1 Long term (current) use of non-steroidal anti-inflammatories (NSAID); Z98.890 Other specified postprocedural states; Z86.0100 Personal history of colon polyps, unspecified; Z86.79 Personal history of other diseases of the circulatory system
CPT/HCPCS: 43239; 45380; 88305; J2003; J2405; J2704; J7120